=== PATIENT | male | born 1940 | race Caucasian/White ===

== ENCOUNTER 2018-10-03 14:57 | Inpatient (IN) | payer MEDICARE, BC ==
[2018-10-03 15:28] LABS: CHLORIDE,CL 106 mEq/L (98-106); SODIUM,NA 142 mEq/L (136-145)
[2018-10-03] MEDS ORDERED: Ondansetron 4 MG/2 ML SDV IVPUSH PRN (19:09)
[2018-10-03] MEDS: Mirtazapine 15 MG Tab PO SCH (19:28)
[2018-10-03] MEDS ORDERED: Metoprolol Succinate 25 MG Tab.ER PO ONE (20:00)
[2018-10-03] MEDS ORDERED: Non-Formulary Medication 1 Each (Ipratropium Bromide [Ipratropium Bromide] 2 SPRAYS) NASBOTH SCH (20:00)
[2018-10-03] MEDS ORDERED: Enoxaparin 80 MG/0.8 ML Syringe SUBCUT SCH (20:00)
[2018-10-03] MEDS: Acetaminophen 500 MG Tab PO PRN (23:20)
[2018-10-04] MEDS: Acetaminophen 500 MG Tab PO PRN (07:01)
[2018-10-04] MEDS: Loratadine 10 MG Tab PO SCH (07:14)
[2018-10-04] MEDS: Aspirin 325 MG Tab.EC PO SCH (07:14)
[2018-10-04] MEDS: Furosemide 40 MG Tab PO SCH (07:14)
[2018-10-04] MEDS: Metoprolol Succinate 25 MG Tab.ER PO SCH (07:14)
--- NOTE | 2018-10-04 10:38 | PCM.PN ---
- General Info Date of Service: 10/04/18 Admission Dx/Problem (Free Text): Dizziness Weakness Frequent Falls Functional Status: Reports: Pain Controlled, Tolerating Diet, Ambulating - Review of Systems General: Reports: Weakness, Fatigue HEENT: Denies: Ear Pain, Sore Throat, Rhinitis Pulmonary: Reports: Shortness of Breath. Denies: Cough Cardiovascular: Reports: Edema. Denies: Chest Pain, Lightheadedness Gastrointestinal: Denies: Abdominal Pain, Nausea, Vomiting Genitourinary: Reports: No Symptoms Musculoskeletal: Reports: Shoulder Pain Skin: Reports: No Symptoms Neurological: Reports: Dizziness, Weakness - Patient Data Vitals - Most Recent: Last Vital Signs Temp 97 F 10/04/18 08:00 Pulse 83 10/04/18 08:00 Resp 18 10/04/18 08:00 BP 111/79 10/04/18 08:00 Pulse Ox 97 10/04/18 08:00 Weight - Most Recent: 159 lb 14.4 oz Lab Results Last 24 Hours: Laboratory Results - last 24 hr 10/03/18 10/03/18 10/03/18 Range/Units 15:06 15:06 15:58 WBC 6.4 (5.0-10.0) 10^3/uL RBC 4.00 L (4.50-6.00) 10^6/uL Hgb 13.1 L (14.0-18.0) g/dL Hct 38.9 L (40.0-54.0) % MCV 97.3 H (82.0-94.0) fL MCH 32.8 H (27.0-32.0) pg MCHC 33.7 (33.0-38.0) g/dL RDW Coeff of Brayan 14.0 (11.0-15.0) % Plt Count 223 (150-400) 10^3/uL Neut % (Auto) 77.3 (35-85) % Lymph % (Auto) 11.6 (10-55) % [place] % (Auto) 8.9 (0-16) % Eos % (Auto) 2.0 (0-5) % Baso % (Auto) 0.2 (0-3) % Neut # (Auto) 4.94 (1.80-7.00) 10^3/uL Lymph # (Auto) 0.74 L (1.00-4.80) 10^3/uL [place] # (Auto) 0.57 (0.00-0.80) 10^3/uL Eos # (Auto) 0.13 (0.00-0.45) 10^3/uL Baso # (Auto) 0.01 10^3/uL Sodium 142 (136-145) mEq/L Potassium 4.1 (3.5-5.0) mEq/L Chloride 106 (98-106) mEq/L Carbon Dioxide 29 (21-32) mmol/L BUN 25 H (7-18) mg/dL Creatinine 1.2 (0.7-1.3) mg/dL Est Cr Clr Drug Dosing TNP Estimated GFR (MDRD) 58 L (>=60) mL/min Glucose 127 H (75-99) mg/dL Calcium 9.9 (8.4-10.1) mg/dL Troponin I 0.047 (0.00-0.06) ng/mL Urine Color Yellow (YELLOW) Urine Appearance Clear (CLEAR) Urine pH 5.5 (4.5-8.0) Ur Specific [place] 1.025 H (1.003-1.020) Urine Protein 30 H (NEGATIVE) mg/dL Urine Glucose (UA) Negative (NEGATIVE) mg/dL Urine Ketones Trace H (NEGATIVE) mg/dL Urine Occult Blood Negative (NEGATIVE) Urine Nitrite Negative (NEGATIVE) Urine Bilirubin Negative (NEGATIVE) Urine Urobilinogen 0.2 (0.2-1.0) EU/dL Ur Leukocyte Esterase Negative (NEGATIVE) Urine RBC Not seen (0-5) /HPF Urine WBC Not seen (0-5) /HPF Ur Squamous Epith Cells Occasional H (NOT SEEN) /HPF Hyaline Casts Occasional H (NOT SEEN) /LPF Urine Mucus Occasional H (NOT SEEN) /HPF // Range/Units 05:11 WBC (5.0-10.0) 10^3/uL RBC (4.50-6.00) 10^6/uL Hgb (14.0-18.0) g/dL Hct (40.0-54.0) % MCV (82.0-94.0) fL MCH (27.0-32.0) pg MCHC (33.0-38.0) g/dL RDW Coeff of Brayan (11.0-15.0) % Plt Count (150-400) 10^3/uL Neut % (Auto) (35-85) % Lymph % (Auto) (10-55) % [place] % (Auto) (0-16) % Eos % (Auto) (0-5) % Baso % (Auto) (0-3) % Neut # (Auto) (1.80-7.00) 10^3/uL Lymph # (Auto) (1.00-4.80) 10^3/uL [place] # (Auto) (0.00-0.80) 10^3/uL Eos # (Auto) (0.00-0.45) 10^3/uL Baso # (Auto) 10^3/uL Sodium (136-145) mEq/L Potassium (3.5-5.0) mEq/L Chloride (98-106) mEq/L Carbon Dioxide (21-32) mmol/L BUN (7-18) mg/dL Creatinine (0.7-1.3) mg/dL Est Cr Clr Drug Dosing Estimated GFR (MDRD) (>=60) mL/min Glucose (75-99) mg/dL Calcium (8.4-10.1) mg/dL Troponin I 0.051 (0.00-0.06) ng/mL Urine Color (YELLOW) Urine Appearance (CLEAR) Urine pH (4.5-8.0) Ur Specific [place] (1.003-1.020) Urine Protein (NEGATIVE) mg/dL Urine Glucose (UA) (NEGATIVE) mg/dL Urine Ketones (NEGATIVE) mg/dL Urine Occult Blood (NEGATIVE) Urine Nitrite (NEGATIVE) Urine Bilirubin (NEGATIVE) Urine Urobilinogen (0.2-1.0) EU/dL Ur Leukocyte Esterase (NEGATIVE) Urine RBC (0-5) /HPF Urine WBC (0-5) /HPF Ur Squamous Epith Cells (NOT SEEN) /HPF Hyaline Casts (NOT SEEN) /LPF Urine Mucus (NOT SEEN) /HPF Med Orders - Current: Current Medications Acetaminophen (Tylenol Extra Strength) 500 - 1,000 mg PO Q6H PRN PRN Reason: Pain/Fever Last Admin: 10/04/18 07:01 Dose: 1,000 mg Aspirin (Ecotrin) 325 mg PO DAILY [facility] Last Admin: 10/04/18 07:14 Dose: 325 mg Enoxaparin Sodium (Lovenox) 70 mg SUBCUT DAILY@1999 [facility] Last Admin: 10/03/18 19:28 Dose: 70 mg Furosemide (Lasix) 40 mg PO DAILY [facility] Last Admin: 10/04/18 07:14 Dose: 40 mg Loratadine (Claritin) 10 mg PO DAILY [facility] Last Admin: 10/04/18 07:14 Dose: 10 mg Metoprolol Succinate (Toprol Xl) 25 mg PO DAILY [facility] Last Admin: 10/04/18 07:14 Dose: 25 mg Mirtazapine (Remeron) 15 mg PO BEDTIME [facility] Last Admin: 10/03/18 19:28 Dose: 15 mg Non-Formulary Medication (Rosuvastatin [Crestor]) 10 mg PO Q48H [facility] Ondansetron HCl (Zofran) 4 mg IVPUSH Q6H PRN PRN Reason: Nausea Discontinued Medications Metoprolol Succinate (Toprol Xl) 25 mg PO ONETIME ONE Stop: 10/03/18 20:01 Last Admin: 10/03/18 19:27 Dose: 25 mg Non-Formulary Medication (Ipratropium [place] [Ipratropium [place]]) 2 sprays NASBOTH BID [facility] - Exam General: Alert, Oriented HEENT: Mucous Membr. Moist/[place] Neck: Supple Lungs: Clear to Auscultation, Normal Respiratory Effort Cardiovascular: Irregular Rhythm, Murmurs GI/Abdominal Exam: Normal Bowel Sounds, Soft, Non-Tender Extremities: Normal Inspection, Pedal Edema (2+) Skin: Warm, Dry Neurological: No New Focal Deficit - Problem List & Annotations (1) Weakness SNOMED Code(s): 13008181 Code(s): R53.1 - WEAKNESS Status: Acute Priority: High Current Visit: Yes (2) Fall at home SNOMED Code(s): 33479177 Code(s): W19.XXXA - UNSPECIFIED FALL, INITIAL ENCOUNTER; Y92.009 - UNSP PLACE IN UNSP NON-INSTITUT (PRIVATE) RESIDENCE PLACE Status: Acute Priority: High Current Visit: Yes Qualifiers: Encounter type: initial encounter Qualified Code(s): W19.XXXA - Unspecified fall, initial encounter; Y92.009 - Unspecified place in unspecified non-institutional (private) residence as the place of occurrence of the external cause (3) Atrial flutter SNOMED Code(s): 8789566 Code(s): I48.92 - UNSPECIFIED ATRIAL FLUTTER Status: Acute Priority: High Current Visit: Yes - Problem List Review Problem List Initiated/Reviewed/Updated: Yes - My Orders Last 24 Hours: My Active Orders 10/04/18 10:22 Echo Comp wo Cont [US] Routine PRO B-TYPE NATRIUR PEPT,BNPPRO [CHEM] Routine TSH REFLEX TO FREE T4 [CHEM] Routine - Assessment Assessment:: Weakness Frequent Falls Laceration to head Atrial Flutter - Plan Plan:: Patient stable this am. Admits to ongoing shoulder pain. Has increased edema in legs, states has been refusing to take his meds at home due to "def[place] ". Did take his Lasix for the nurse this am. Does feel mildly short of breath. States balance is off which has led to frequent falls at home. Did have one staple put in a laceration on his right scalp yesterday as a result of a fall. No headache today. New onset atrial flutter was noted. Was started on Lovenox [address] scan of head was done, was negative. Will switch to Eliquis BID. Stop Lovenox. Obtain TSH and ProBNP today due to edema. Carotid ultrasound done today. Echo last done 3 months ago. Obtain MRI on Tuesday. PT today for balance and strengthening.
[2018-10-04] MEDS ORDERED: Acetaminophen/HYDROcodone 325-5 MG Tab PO PRN (10:41)
[2018-10-04] MEDS: Apixaban 5 MG Tab PO SCH ×2 (12:53→19:52)
[2018-10-04] MEDS: Mirtazapine 15 MG Tab PO SCH (19:52)
[2018-10-04] MEDS ORDERED: ROSUVASTATIN 10 MG PO SCH (20:00)
[2018-10-05] MEDS: Acetaminophen 500 MG Tab PO PRN ×3 (03:34→19:59)
[2018-10-05 07:55] LABS: CHLORIDE,CL 106 mEq/L (98-106); SODIUM,NA 140 mEq/L (136-145)
[2018-10-05] MEDS: Metoprolol Succinate 25 MG Tab.ER PO SCH (08:02)
[2018-10-05] MEDS: Furosemide 40 MG Tab PO SCH (08:02)
[2018-10-05] MEDS: Apixaban 5 MG Tab PO SCH ×2 (08:03→19:42)
[2018-10-05] MEDS: Aspirin 325 MG Tab.EC PO SCH (08:03)
[2018-10-05] MEDS: Loratadine 10 MG Tab PO SCH (08:03)
--- NOTE | 2018-10-05 09:15 | PCM.PN ---
- General Info Date of Service: 10/05/18 Admission Dx/Problem (Free Text): Dizziness Weakness Frequent Falls Functional Status: Reports: Pain Controlled, Tolerating Diet, Ambulating - Review of Systems General: Reports: Weakness, Fatigue. Denies: Fever HEENT: Denies: Ear Pain, Sinus Congestion, Rhinitis Pulmonary: Reports: Cough. Denies: Shortness of Breath Cardiovascular: Reports: Edema. Denies: Chest Pain Gastrointestinal: Denies: Abdominal Pain, Nausea, Vomiting Genitourinary: Reports: No Symptoms Musculoskeletal: Reports: Shoulder Pain Skin: Reports: No Symptoms Neurological: Reports: Weakness - Patient Data Vitals - Most Recent: Last Vital Signs Temp 99.1 F 10/05/18 07:49 Pulse 86 10/05/18 08:02 Resp 20 10/05/18 07:49 BP 116/82 10/05/18 08:02 Pulse Ox 95 10/05/18 07:49 Weight - Most Recent: 160 lb 14.4 oz Lab Results Last 24 Hours: Laboratory Results - last 24 hr 10/04/18 10/05/18 10/05/18 Range/Units 10:22 06:45 06:45 WBC 7.0 (5.0-10.0) 10^3/uL RBC 3.85 L (4.50-6.00) 10^6/uL Hgb 12.6 L (14.0-18.0) g/dL Hct 37.6 L (40.0-54.0) % MCV 97.7 H (82.0-94.0) fL MCH 32.7 H (27.0-32.0) pg MCHC 33.5 (33.0-38.0) g/dL RDW Coeff of Brayan 14.0 (11.0-15.0) % Plt Count 195 (150-400) 10^3/uL Neut % (Auto) 71.2 (35-85) % Lymph % (Auto) 14.7 (10-55) % [place] % (Auto) 12.3 (0-16) % Eos % (Auto) 1.7 (0-5) % Baso % (Auto) 0.1 (0-3) % Neut # (Auto) 4.97 (1.80-7.00) 10^3/uL Lymph # (Auto) 1.03 (1.00-4.80) 10^3/uL [place] # (Auto) 0.86 H (0.00-0.80) 10^3/uL Eos # (Auto) 0.12 (0.00-0.45) 10^3/uL Baso # (Auto) 0.01 10^3/uL Sodium 140 (136-145) mEq/L Potassium 3.9 (3.5-5.0) mEq/L Chloride 106 (98-106) mEq/L Carbon Dioxide 29 (21-32) mmol/L BUN 24 H (7-18) mg/dL Creatinine 1.1 (0.7-1.3) mg/dL Est Cr Clr Drug Dosing 56.21 mL/min Estimated GFR (MDRD) > 60 (>=60) mL/min Glucose 124 H (75-99) mg/dL Calcium 9.2 (8.4-10.1) mg/dL C-Reactive Protein < 0.2 L (0.2-0.8) mg/dL NT-Pro-B Natriuret Pep 4264 H (0-1000) pg/mL TSH, Ultra Sensitive 1.27 (0.36-5.60) uIU/mL Med Orders - Current: Current Medications Acetaminophen (Tylenol Extra Strength) 500 - 1,000 mg PO Q6H PRN PRN Reason: Pain/Fever Last Admin: 10/05/18 03:34 Dose: 1,000 mg Hydrocodone Bitart/Acetaminophen ([place] 325-5 Mg) 1 tab PO Q6H PRN PRN Reason: Pain Apixaban (Eliquis) 5 mg PO BID [facility] Last Admin: 10/05/18 08:03 Dose: 5 mg Aspirin (Ecotrin) 325 mg PO DAILY [facility] Last Admin: 10/05/18 08:03 Dose: 325 mg Furosemide (Lasix) 40 mg PO DAILY [facility] Last Admin: 10/05/18 08:02 Dose: 40 mg Loratadine (Claritin) 10 mg PO DAILY [facility] Last Admin: 10/05/18 08:03 Dose: 10 mg Metoprolol Succinate (Toprol Xl) 25 mg PO DAILY [facility] Last Admin: 10/05/18 08:02 Dose: 25 mg Mirtazapine (Remeron) 15 mg PO BEDTIME [facility] Last Admin: 10/04/18 19:52 Dose: 15 mg Ptom Rosuvastatin [ Crestor] 10 Mg Tab 10 mg PO Q48H [facility] Last Admin: 10/04/18 19:56 Dose: 10 mg Ondansetron HCl (Zofran) 4 mg IVPUSH Q6H PRN PRN Reason: Nausea Last Admin: 10/04/18 18:57 Dose: 4 mg Discontinued Medications Enoxaparin Sodium (Lovenox) 70 mg SUBCUT DAILY@1999 [facility] Last Admin: 10/03/18 19:28 Dose: 70 mg Metoprolol Succinate (Toprol Xl) 25 mg PO ONETIME ONE Stop: 10/03/18 20:01 Last Admin: 10/03/18 19:27 Dose: 25 mg Non-Formulary Medication (Ipratropium [place] [Ipratropium [place]]) 2 sprays NASBOTH BID [facility] - Exam General: Alert, Oriented HEENT: Mucous Membr. Moist/[place] Neck: Supple Lungs: Clear to Auscultation, Normal Respiratory Effort Cardiovascular: Regular Rate, Regular Rhythm GI/Abdominal Exam: Normal Bowel Sounds, Soft, Non-Tender Extremities: Normal Inspection, Pedal Edema (1-2+ but improved from yesterday) Skin: Warm, Dry Neurological: No New Focal Deficit - Problem List & Annotations (1) Weakness SNOMED Code(s): 97269832 Code(s): R53.1 - WEAKNESS Status: Acute Priority: High Current Visit: Yes (2) Fall at home SNOMED Code(s): 38883363 Code(s): W19.XXXA - UNSPECIFIED FALL, INITIAL ENCOUNTER; Y92.009 - UNSP PLACE IN UNSP NON-INSTITUT (PRIVATE) RESIDENCE PLACE Status: Acute Priority: High Current Visit: Yes Qualifiers: Encounter type: initial encounter Qualified Code(s): W19.XXXA - Unspecified fall, initial encounter; Y92.009 - Unspecified place in unspecified non-institutional (private) residence as the place of occurrence of the external cause (3) Atrial flutter SNOMED Code(s): 8185306 Code(s): I48.92 - UNSPECIFIED ATRIAL FLUTTER Status: Acute Priority: High Current Visit: Yes - Problem List Review Problem List Initiated/Reviewed/Updated: Yes - My Orders Last 24 Hours: My Active Orders 10/04/18 10:41 Acetaminophen/HYDROcodone [Lewis 325-5 MG] 1 tab PO Q6H PRN 10/04/18 10:45 Apixaban [Eliquis] 5 mg PO BID - Assessment Assessment:: Weakness Frequent Falls Laceration to head Atrial Flutter - Plan Plan:: Patient stable this am. Admits to ongoing shoulder pain. Has increased edema in legs, states has been refusing to take his meds at home due to "[place] ". Did take his Lasix for the nurse this am. Does feel mildly short of breath. States balance is off which has led to frequent falls at home. Did have one staple put in a laceration on his right scalp yesterday as a result of a fall. No headache today. New onset atrial flutter was noted. Was started on Lovenox [address] scan of head was done, was negative. Will switch to Eliquis BID. Stop Lovenox. Obtain TSH and ProBNP today due to edema. Carotid ultrasound done today. Echo last done 3 months ago. Obtain MRI on Tuesday. PT today for balance and strengthening. 10-05-2018 Patient up at bedside, feeling better but admits that still weak with ambulating. PT is working with patient and suggests using walker at all times, patient states this "will not work for me" as has too many projects to do. He is, however, aware of our concerns with his balance and frequent falls. Did also discuss compliance with meds. Edema has improved since resuming his Lasix. Telemetry shows conversion to NSR. Was started on Eliquis yesterday. Lung sounds clear today. Head wound is healing well. Will continue with PT. Continue Lasix as ProBNP noted at 4264 yesterday. TSH normal. Obtain MRI of brain tomorrow.
[2018-10-05] MEDS: Mirtazapine 15 MG Tab PO SCH (19:42)
[2018-10-05] MEDS ORDERED: Gadoteridol 279.3 MG/ML 15 ML SDV IVPUSH ONE (20:38)
[2018-10-06] MEDS: Furosemide 40 MG Tab PO SCH (07:37)
[2018-10-06] MEDS: Loratadine 10 MG Tab PO SCH (07:37)
[2018-10-06] MEDS: Acetaminophen 500 MG Tab PO PRN (07:38)
[2018-10-06] MEDS: Aspirin 325 MG Tab.EC PO SCH (07:38)
[2018-10-06] MEDS: Apixaban 5 MG Tab PO SCH (07:38)
[2018-10-06] MEDS: Metoprolol Succinate 25 MG Tab.ER PO SCH (07:53)
[2018-10-06 07:54] VITALS: BP 118/83
--- NOTE | 2018-10-06 22:24 | PCM.DCSUM1 ---
Discharge Summary - Hospital Course Free Text/Narrative:: Patient presented to clinic to see Maite Moreno for increased weakness, dizziness and fall. Had fallen and hit his head on the dining room table, sustained small laceration to posterior right scalp region. Denies loss of consciousness. States was bending over and started feeling dizzy and fell backwards. Per , has fallen 8 times in the last 1-2 weeks, did not injure self until this day. Blood pressure was low, pulse irregular in clinic. Denied chest pain, shortness of breath, N/V/D, urinary symptoms. EKG showed SR with frequent PVCs, PACs. CT scan of head was negative. BUN 25. Admitted for weakness and falls. Echocardiogram, carotid ultrasound and MRI of brain ordered. PT for strengthing. Diagnosis: Stroke: No Modified [place] Scale: No Symptoms at All Modified Lucas Scale Score: 0 - Discharge Data Discharge Date: 10/06/18 Discharge Disposition: DC/Tfer W/I Hosp To Swing 61 Condition: Good - Discharge Diagnosis/Problem(s) (1) Weakness SNOMED Code(s): 72673614 ICD Code: R53.1 - WEAKNESS Status: Acute Priority: High (2) Fall at home SNOMED Code(s): 66143931 ICD Code: W19.XXXA - UNSPECIFIED FALL, INITIAL ENCOUNTER; Y92.009 - UNSP PLACE IN UNSP NON-INSTITUT (PRIVATE) RESIDENCE PLACE Status: Acute Priority: High Qualifiers: Encounter type: initial encounter Qualified Code(s): W19.XXXA - Unspecified fall, initial encounter; Y92.009 - Unspecified place in unspecified non-institutional (private) residence as the place of occurrence of the external cause (3) Atrial flutter SNOMED Code(s): 6355172 ICD Code: I48.92 - UNSPECIFIED ATRIAL FLUTTER Status: Acute Priority: High - Patient Summary/Data Complications: none Consults: Consultations 10/03/18 17:14 Consult to Case Management/Under Sheriff [CONS] Routine PT Evaluation and Treatment [CONS] Routine Hospital Course: Patient doing well. Does continue to have ongoing weakness, balance concerns. Has been ambulating with PT and walker. Patient was found to be in atrial flutter. Started on Eliquis as did not convert. Carotid ultrasound stable without acute concern. Does have chronic right shoulder pain which does inhibit his movement and use of the walker at times. Due to persistent weakness, will transfer to swing bed for ongoing physical therapy/balance training. - Patient Instructions Diet: Usual Diet as Tolerated Activity: As Tolerated - Discharge Plan *PRESCRIPTION DRUG MONITORING PROGRAM REVIEWED*: No *COPY OF PRESCRIPTION DRUG MONITORING REPORT IN PATIENT FLORA: No Home Medications: Home Meds Aspirin [Halfprin] 325 mg PO DAILY 05/31/13 [History] Hydrocodone/Acetaminophen [Hydrocodon-Acetaminophen 5-500] 1 each PO Q6H PRN [History] Ipratropium [place] 2 sprays NASBOTH BID 05/31/13 [History] Loratadine [Claritin] 10 mg PO DAILY 05/31/13 [History] Metoprolol Succinate 25 mg PO DAILY 05/31/13 [History] Multivitamin [Multi Vitamin Daily] 1 each PO DAILY 05/31/13 [History] Rosuvastatin [Crestor] 10 mg PO Q48H 05/31/13 [History] Coconut Oil 1,000 mg PO DAILY 10/20/17 [History] Fluticasone Propionate [Flonase Allergy Relief] 2 sprays NASBOTH BEDTIME [History] Mirtazapine 15 mg PO BEDTIME 10/20/17 [History] traMADol HCl [Tramadol HCl] 50 - 100 mg PO Q8HR PRN 10/20/17 [History] Acetaminophen [Tylenol Extra Strength] 500 - 1,000 mg PO Q6H PRN 10/03/18 [ History] - Discharge Summary/Plan Comment DC Time >30 min.: No - General Info Date of Service: 10/06/18 Admission Dx/Problem (Free Text: Dizziness Weakness Frequent Falls Functional Status: Reports: Pain Controlled, Tolerating Diet, Ambulating - Review of Systems General: Reports: Weakness, Fatigue. Denies: Fever, Malaise HEENT: Reports: No Symptoms Pulmonary: Denies: Shortness of Breath, Cough Cardiovascular: Reports: Edema. Denies: Chest Pain, Lightheadedness Gastrointestinal: Denies: Abdominal Pain, Nausea, Vomiting Musculoskeletal: Reports: Shoulder Pain Skin: Reports: No Symptoms Neurological: Reports: Weakness - Patient Data Vitals - Most Recent: Last Vital Signs Temp 98.4 F 10/06/18 08:00 Pulse 82 10/06/18 08:00 Resp 20 06/07/19 08:00 BP 118/83 10/06/18 08:00 Pulse Ox 96 10/06/18 08:00 Weight - Most Recent: 161 lb 14.4 oz Med Orders - Current: Current Medications Discontinued Medications Acetaminophen (Tylenol Extra Strength) 500 - 1,000 mg PO Q6H PRN PRN Reason: Pain/Fever Last Admin: 10/06/18 07:38 Dose: 1,000 mg Hydrocodone Bitart/Acetaminophen ([place] 325-5 Mg) 1 tab PO Q6H PRN PRN Reason: Pain Apixaban (Eliquis) 5 mg PO BID [facility] Last Admin: 10/06/18 07:38 Dose: 5 mg Aspirin (Ecotrin) 325 mg PO DAILY [facility] Last Admin: 10/06/18 07:38 Dose: 325 mg Enoxaparin Sodium (Lovenox) 70 mg SUBCUT DAILY@1999 [facility] Last Admin: 10/03/18 19:28 Dose: 70 mg Furosemide (Lasix) 40 mg PO DAILY [facility] Last Admin: 10/06/18 07:37 Dose: 40 mg Gadoteridol (Prohance) 15 ml IVPUSH ONETIME ONE Stop: 10/05/18 20:39 Last Admin: 10/05/18 20:53 Dose: 15 ml Loratadine (Claritin) 10 mg PO DAILY [facility] Last Admin: 10/06/18 07:37 Dose: 10 mg Metoprolol Succinate (Toprol Xl) 25 mg PO DAILY [facility] Last Admin: 10/06/18 07:53 Dose: 25 mg Metoprolol Succinate (Toprol Xl) 25 mg PO ONETIME ONE Stop: 10/03/18 20:01 Last Admin: 10/03/18 19:27 Dose: 25 mg Mirtazapine (Remeron) 15 mg PO BEDTIME [facility] Last Admin: 10/05/18 19:42 Dose: 15 mg Non-Formulary Medication (Ipratropium [place] [Ipratropium [place]]) 2 sprays NASBOTH BID [facility] Ptom Rosuvastatin [ Crestor] 10 Mg Tab 10 mg PO Q48H [facility] Last Admin: 10/04/18 19:56 Dose: 10 mg Ondansetron HCl (Zofran) 4 mg IVPUSH Q6H PRN PRN Reason: Nausea Last Admin: 10/04/18 18:57 Dose: 4 mg - Exam General: Reports: Alert, Oriented HEENT: Reports: Mucous Membr. Moist/[place] Neck: Reports: Supple Lungs: Reports: Clear to Auscultation, Normal Respiratory Effort Cardiovascular: Reports: Regular Rate, Regular Rhythm GI/Abdominal Exam: Normal Bowel Sounds, Soft, Non-Tender Extremities: Normal Inspection, Pedal Edema (1+) Skin: Reports: Warm, Dry Neurological: Reports: No New Focal Deficit
== END 2018-10-06 09:10 | disposition swing bed (61) | DRG 605 ==
LOC: CC.MS 14:57 → CC.FCMC 14:57 → CC.MS 16:21 → UNDOADMIN 16:21 → CC.MS 17:14
PROVIDERS: ADMIT Nurse Practitioner Family; ATTEND Family Medicine
DX: S01.01XA Laceration without foreign body of scalp, initial encounter (principal); I48.92 Unspecified atrial flutter; R42 Dizziness and giddiness; W18.30XA Fall on same level, unspecified, initial encounter; I49.1 Atrial premature depolarization; G89.29 Other chronic pain; M25.511 Pain in right shoulder; R29.6 Repeated falls; R53.1 Weakness; I50.9 Heart failure, unspecified; I25.10 Atherosclerotic heart disease of native coronary artery without angina pectoris; E78.5 Hyperlipidemia, unspecified; I49.3 Ventricular premature depolarization; Z79.82 Long term (current) use of aspirin; Z79.899 Other long term (current) drug therapy; Z90.49 Acquired absence of other specified parts of digestive tract; E53.8 Deficiency of other specified B group vitamins; M54.9 Dorsalgia, unspecified; N40.0 Benign prostatic hyperplasia without lower urinary tract symptoms; Z88.8 Allergy status to other drugs, medicaments and biological substances; Z95.1 Presence of aortocoronary bypass graft; I95.9 Hypotension, unspecified
CPT/HCPCS: 36415; 70450; 70553; 71046; 80048; 81001; 83880; 84443; 84484; 85025; 86140; 93005; 93880; 97110-GP; 97161-GP; A9270-GY; A9579; J1650; J2405

== ENCOUNTER 2018-10-06 08:07 | Inpatient (IN) | payer MEDICARE, BC ==
[2018-10-06] MEDS ORDERED: Ondansetron 4 MG/2 ML SDV IVPUSH PRN (11:19)
[2018-10-06] MEDS ORDERED: Acetaminophen/HYDROcodone 325-5 MG Tab PO PRN (11:19)
[2018-10-06] MEDS: Acetaminophen 500 MG Tab PO PRN (19:40)
[2018-10-06] MEDS: Mirtazapine 15 MG Tab PO SCH (19:41)
[2018-10-06] MEDS: Apixaban 5 MG Tab PO SCH (19:41)
[2018-10-06] MEDS: ROSUVASTATIN 10 MG PO SCH (19:43)
[2018-10-07] MEDS: Apixaban 5 MG Tab PO SCH ×2 (07:32→19:20)
[2018-10-07] MEDS: Aspirin 325 MG Tab.EC PO SCH (07:32)
[2018-10-07] MEDS: Loratadine 10 MG Tab PO SCH (07:32)
[2018-10-07] MEDS: Acetaminophen 500 MG Tab PO PRN ×2 (07:33→19:21)
[2018-10-07] MEDS: Furosemide 40 MG Tab PO SCH (07:33)
[2018-10-07] MEDS: Metoprolol Succinate 25 MG Tab.ER PO SCH (07:36)
[2018-10-07] MEDS: Mirtazapine 15 MG Tab PO SCH (19:21)
[2018-10-08] MEDS: Aspirin 325 MG Tab.EC PO SCH (07:23)
[2018-10-08] MEDS: Apixaban 5 MG Tab PO SCH ×2 (07:23→19:55)
[2018-10-08] MEDS: Loratadine 10 MG Tab PO SCH (07:23)
[2018-10-08] MEDS: Acetaminophen 500 MG Tab PO PRN ×2 (07:23→19:55)
[2018-10-08] MEDS: Metoprolol Succinate 25 MG Tab.ER PO SCH (07:23)
[2018-10-08] MEDS: Furosemide 40 MG Tab PO SCH (07:23)
[2018-10-08] MEDS: Mirtazapine 15 MG Tab PO SCH (19:55)
[2018-10-08] MEDS: ROSUVASTATIN 10 MG PO SCH (19:56)
[2018-10-09] MEDS: Apixaban 5 MG Tab PO SCH ×2 (07:19→19:54)
[2018-10-09] MEDS: Furosemide 40 MG Tab PO SCH (07:19)
[2018-10-09] MEDS: Aspirin 325 MG Tab.EC PO SCH (07:19)
[2018-10-09] MEDS: Metoprolol Succinate 25 MG Tab.ER PO SCH (07:19)
[2018-10-09] MEDS: Loratadine 10 MG Tab PO SCH (07:19)
[2018-10-09] MEDS ORDERED: Metoprolol Succinate 25 MG Tab.ER PO ONE (10:30)
[2018-10-09] MEDS: Acetaminophen 500 MG Tab PO PRN (13:11)
[2018-10-09] MEDS: Mirtazapine 15 MG Tab PO SCH (19:54)
[2018-10-10] MEDS: Acetaminophen 500 MG Tab PO PRN ×2 (03:12→22:07)
[2018-10-10] MEDS: Metoprolol Succinate 25 MG Tab.ER PO SCH (07:10)
[2018-10-10] MEDS: Apixaban 5 MG Tab PO SCH ×2 (07:10→19:25)
[2018-10-10] MEDS: Aspirin 325 MG Tab.EC PO SCH (07:10)
[2018-10-10] MEDS: Loratadine 10 MG Tab PO SCH (07:10)
[2018-10-10] MEDS: Furosemide 40 MG Tab PO SCH (07:10)
[2018-10-10] MEDS ORDERED: Polyvinyl Alcohol 1.4% Ophth Soln 15 ML Bottle EYEBOTH PRN (10:05)
[2018-10-10] MEDS: Mirtazapine 15 MG Tab PO SCH (19:25)
[2018-10-10] MEDS: ROSUVASTATIN 10 MG PO SCH (19:25)
[2018-10-11] MEDS: Aspirin 325 MG Tab.EC PO SCH (07:26)
[2018-10-11] MEDS: Apixaban 5 MG Tab PO SCH ×2 (07:27→19:26)
[2018-10-11] MEDS: Furosemide 40 MG Tab PO SCH (07:27)
[2018-10-11] MEDS: Metoprolol Succinate 25 MG Tab.ER PO SCH (07:27)
[2018-10-11] MEDS: Loratadine 10 MG Tab PO SCH (07:27)
[2018-10-11] MEDS: Mirtazapine 15 MG Tab PO SCH (19:26)
[2018-10-12] MEDS: Aspirin 325 MG Tab.EC PO SCH (07:56)
[2018-10-12] MEDS: Furosemide 40 MG Tab PO SCH (07:56)
[2018-10-12] MEDS: Metoprolol Succinate 25 MG Tab.ER PO SCH (07:56)
[2018-10-12 07:57] VITALS: BP 117/85
[2018-10-12] MEDS: Apixaban 5 MG Tab PO SCH (07:57)
[2018-10-12] MEDS: Loratadine 10 MG Tab PO SCH (07:57)
[2018-10-12] MEDS: Acetaminophen 500 MG Tab PO PRN (08:13)
--- NOTE | 2018-10-12 18:17 | PCM.DCSUM1 ---
Discharge Summary - Hospital Course Diagnosis: Stroke: No Modified [place] Scale: No Symptoms at All Modified [place] Scale Score: 0 - Discharge Data Discharge Date: 10/12/18 Discharge Disposition: Home, W Home Health Agency 06 Condition: Good - Patient Summary/Data Consults: Consultations 10/06/18 11:19 Consult to Case Management/Protozoology Teacher [CONS] Routine PT Evaluation and Treatment [CONS] Routine - Patient Instructions Diet: Usual Diet as Tolerated Activity: As Tolerated - Discharge Plan *PRESCRIPTION DRUG MONITORING PROGRAM REVIEWED*: No *COPY OF PRESCRIPTION DRUG MONITORING REPORT IN PATIENT FLORA: No Prescriptions/Med Rec: Apixaban [Eliquis] 5 mg PO BID #60 tablet Metoprolol Succinate [Toprol XL 50mg] 50 mg PO DAILY #30 tab.er Home Medications: Home Meds Aspirin [Halfprin] 325 mg PO DAILY 05/31/13 [History] Hydrocodone/Acetaminophen [Hydrocodon-Acetaminophen 5-500] 1 each PO Q6H PRN [History] Ipratropium [place] 2 sprays NASBOTH BID 05/31/13 [History] Loratadine [Claritin] 10 mg PO DAILY 05/31/13 [History] Multivitamin [Multi-Vitamin Daily] 1 each PO DAILY 05/31/13 [History] Rosuvastatin [Crestor] 10 mg PO Q48H 05/31/13 [History] Coconut Oil 1,000 mg PO DAILY 10/20/17 [History] Fluticasone Propionate [Flonase Allergy Relief] 2 sprays NASBOTH BEDTIME [History] Mirtazapine 15 mg PO BEDTIME 10/20/17 [History] traMADol HCl [Tramadol HCl] 50 - 100 mg PO Q8HR PRN 10/20/17 [History] Acetaminophen [Tylenol Extra Strength] 500 - 1,000 mg PO Q6H PRN 10/03/18 [ History] Apixaban [Eliquis] 5 mg PO BID #60 tablet 10/12/18 [Rx] Metoprolol Succinate [Toprol XL 50mg] 50 mg PO DAILY #30 tab.er 10/12/18 [Rx] Patient Handouts: Atrial Flutter Referrals: Oumar Joseph MD [ED Physician] - (Follow up with Dr. Joseph in 10 days ) - Patient Data Vitals - Most Recent: Last Vital Signs Temp 96.5 F 10/12/18 08:00 Pulse 110 H 10/12/18 08:00 Resp 16 10/12/18 08:00 BP 117/85 10/12/18 08:00 Pulse Ox 100 10/12/18 08:00 Weight - Most Recent: 161 lb Med Orders - Current: Current Medications Discontinued Medications Acetaminophen (Tylenol Extra Strength) 500 - 1,000 mg PO Q6H PRN PRN Reason: Pain/Fever Last Admin: 10/12/18 08:13 Dose: 1,000 mg Hydrocodone Bitart/Acetaminophen ([place] 325-5 Mg) 1 tab PO Q6H PRN PRN Reason: Pain Last Admin: 10/11/18 13:47 Dose: 1 tab Apixaban (Eliquis) 5 mg PO BID [facility] Last Admin: 10/12/18 07:57 Dose: 5 mg Artificial Tears (Liquitears 1.4% Ophth Soln) 1 ml EYEBOTH QID PRN PRN Reason: Dry Eyes Last Admin: 10/10/18 10:22 Dose: 2 drop Aspirin (Ecotrin) 325 mg PO DAILY [facility] Last Admin: 10/12/18 07:56 Dose: 325 mg Furosemide (Lasix) 40 mg PO DAILY [facility] Last Admin: 10/12/18 07:56 Dose: 40 mg Loratadine (Claritin) 10 mg PO DAILY [facility] Last Admin: 10/12/18 07:57 Dose: 10 mg Metoprolol Succinate (Toprol Xl) 25 mg PO DAILY [facility] Last Admin: 10/09/18 07:19 Dose: 25 mg Metoprolol Succinate (Toprol Xl) 50 mg PO DAILY [facility] Last Admin: 10/12/18 07:56 Dose: 50 mg Metoprolol Succinate (Toprol Xl) 25 mg PO ONETIME ONE Stop: 10/09/18 10:31 Last Admin: 10/09/18 10:46 Dose: 25 mg Mirtazapine (Remeron) 15 mg PO BEDTIME [facility] Last Admin: 10/11/18 19:26 Dose: 15 mg Ptom Rosuvastatin [ Crestor] 10 Mg Tab 10 mg PO Q48H [facility] Last Admin: 10/10/18 19:25 Dose: 10 mg Ondansetron HCl (Zofran) 4 mg IVPUSH Q6H PRN PRN Reason: Nausea
== END 2018-10-12 11:40 | disposition home health service (06) | DRG 948 ==
LOC: CC.MS 08:07 → UNDOADMIN 09:18
PROVIDERS: ADMIT Family Medicine; ATTEND Family Medicine
DX: R53.1 Weakness (principal); I48.92 Unspecified atrial flutter; R42 Dizziness and giddiness; R29.6 Repeated falls; S01.01XA Laceration without foreign body of scalp, initial encounter; W19.XXXA Unspecified fall, initial encounter; G89.29 Other chronic pain; M25.519 Pain in unspecified shoulder; Z79.82 Long term (current) use of aspirin
CPT/HCPCS: 97110-GP; 97530-GP; A9270-GY

== ENCOUNTER 2019-03-05 11:17 | Inpatient (IN) | payer MEDICARE, BC ==
--- NOTE | 2019-03-05 11:50 | EDM.PDOC ---
ED HPI GENERAL MEDICAL PROBLEM - General Chief Complaint: Syncope Stated Complaint: DIZZY/FALLING DOWN Time Seen by Provider: 03/05/19 11:32 Source of Information: Reports: Patient, Family History Limitations: Reports: No Limitations - History of Present Illness INITIAL COMMENTS - FREE TEXT/NARRATIVE: This patient is a 78 year old male that presents to the ER. Patient reports that for 1 month he has had dizziness. Patient reports that he has had a history of it before in the past and was told it was his heart. Patient reports the past 1 month he has been falling at home, last fall one week ago without injury. Patient reports that yesterday his dizziness became much worse, he almost fell, but did not. Patient reports his dizziness has become worse and is constant. Patient reports that it worse with positional changes or with walking , but it is constant even when laying down. Patient also reports that he had central chest pain that started a couple days ago, but is not there now. He reports the chest pain is "a little", but not current. Reports last time he had chest pain was last night. He reports also for the past couple days he has been more short of breath than usual. Patient at bedside also reports his legs have been more swollen. She reports at times he does sleep in a chair, but did not last night. Patient denies unilateral weaknesses, headaches, neuro changes. Onset: Other (Dizziness since September. But much worse since last night. ) Onset Date: 03/04/19 (Much worse dizziness ) Duration: Getting Worse (especially since yesterday) Quality: Reports: Other ("chest hurt" last night, "little" not current.) Severity: Moderate Worsens with: Reports: Movement (dizziness) Associated Symptoms: Reports: Chest Pain, Shortness of Breath. Denies: Confusion, Cough, cough w sputum, Diaphoresis, Fever/Chills, Headaches, Loss of Appetite, Malaise, Nausea/Vomiting, Rash, Seizure, Syncope, Weakness - Related Data Allergies Allergy/AdvReac Type Severity Reaction Status Date / Time atorvastatin calcium Allergy Muscle Verified 03/05/19 12:08 [From Lipitor] Aches Home Meds: Home Meds Aspirin [Halfprin] 325 mg PO DAILY 05/31/13 [History] Hydrocodone/Acetaminophen [Hydrocodon-Acetaminophen 5-500] 1 each PO Q6H PRN [History] Ipratropium [place] 2 sprays NASBOTH BID 05/31/13 [History] Loratadine [Claritin] 10 mg PO DAILY 05/31/13 [History] Multivitamin [Multi-Vitamin Daily] 1 each PO DAILY 05/31/13 [History] Rosuvastatin [Crestor] 10 mg PO Q48H 05/31/13 [History] Coconut Oil 1,000 mg PO DAILY 10/20/17 [History] Fluticasone Propionate [Flonase Allergy Relief] 2 sprays NASBOTH BEDTIME [History] Mirtazapine 15 mg PO BEDTIME 10/20/17 [History] traMADol HCl [Tramadol HCl] 50 - 100 mg PO Q8HR PRN 10/20/17 [History] Acetaminophen [Tylenol Extra Strength] 500 - 1,000 mg PO Q6H PRN 10/03/18 [ History] Apixaban [Eliquis] 5 mg PO BID #60 tablet 10/12/18 [Rx] Past Medical History HEENT History: Reports: Impaired Vision Cardiovascular History: Reports: Heart Failure, High Cholesterol, Hypertension Musculoskeletal History: Reports: Arthritis - Past Surgical History Cardiovascular Surgical History: Reports: Coronary Artery Bypass GI Surgical History: Reports: Appendectomy, Cholecystectomy Musculoskeletal Surgical History: Reports: Arthroscopic Knee Social & Family History - Tobacco Use Smoking Status *Q: Never Smoker Second Hand Smoke Exposure: No - Caffeine Use Caffeine Use: Reports: Coffee ED ROS GENERAL - Review of Systems Review Of Systems: See Below Constitutional: Reports: No Symptoms HEENT: Reports: No Symptoms Respiratory: Reports: Shortness of Breath. Denies: Cough, Sputum Cardiovascular: Reports: Chest Pain, Dyspnea on Exertion, Edema, Lightheadedness. Denies: Palpitations, Syncope Endocrine: Reports: No Symptoms GI/Abdominal: Reports: No Symptoms. Denies: Abdominal Pain, Diarrhea, Nausea, Vomiting : Reports: No Symptoms Musculoskeletal: Reports: No Symptoms Skin: Reports: No Symptoms Neurological: Reports: Dizziness. Denies: Headache, Numbness, Seizure, Syncope , Tingling, Tremors, Weakness, Change in Speech Psychiatric: Reports: No Symptoms Hematologic/Lymphatic: Reports: No Symptoms Immunologic: Reports: No Symptoms ED EXAM, DIZZINESS - Physical Exam Exam: See Below Exam Limited By: No Limitations General Appearance: Alert, WD/WN, No Apparent Distress Eye Exam: Bilateral Eye: Normal Inspection, PERRL Ears: Normal External Exam, Normal Canal, Hearing Grossly Normal, Normal TMs Nose: Normal Inspection, Normal Mucosa, No Blood Throat/Mouth: Normal Inspection, Normal Lips, Normal Teeth, Normal Gums, Normal Oropharynx, Normal Voice, No Airway Compromise Head Exam: Atraumatic, Normocephalic Vertigo: No: reproducible Neck: Normal Inspection, Supple, Non-Tender, Full Range of Motion Respiratory/Chest: No Respiratory Distress, Lungs Clear, Normal Breath Sounds, No Accessory Muscle Use, Chest Non-Tender Cardiovascular: Normal Peripheral Pulses, Diastolic Murmur, Irregularly Irregular GI/Abdominal: Normal Bowel Sounds, Soft, Non-Tender, No Organomegaly, No Abnormal Bruit Neurological: Alert, Normal Mood/Affect, CN II-XII Intact, Normal Gait, No Motor /Sensory Deficits, Oriented x 3 Back Exam: Normal Inspection, Full Range of Motion Extremities: Normal Inspection, Normal Range of Motion, Non-Tender, Normal Capillary Refill, Pedal Edema (+3 BLE) Psychiatric: Normal Affect, Normal Mood Skin Exam: Warm, Dry, Normal Color, No Rash, Wound/Incision (scratch appearing wounds to BLE anterior. No surroudning redness, heat, drainage. ) EKG INTERPRETATION EKG Date: 03/05/19 Time: 11:52 Rhythm: A-Flutter Rate (Beats/Min): 81 Comparison: No Change Course - Vital Signs Last Recorded V/S: Last Vital Signs Temp 98.1 F 03/05/19 11:34 Pulse 86 03/05/19 11:34 Resp 20 03/05/19 11:34 BP 137/94 H 03/05/19 11:34 Pulse Ox 96 03/05/19 11:34 - Orders/Labs/Meds Orders: Active Orders 24 hr Category Date Time Status Chest 2V [CR] Stat Exams 03/05/19 11:40 Taken Labs: Laboratory Tests 03/05/19 03/05/19 03/05/19 Range/Units 11:40 11:40 11:41 WBC 5.9 (5.0-10.0) 10^3/uL RBC 4.03 L (4.50-6.00) 10^6/uL Hgb 12.9 L (14.0-18.0) g/dL Hct 38.8 L (40.0-54.0) % MCV 96.3 H (82.0-94.0) fL MCH 32.0 (27.0-32.0) pg MCHC 33.2 (33.0-38.0) g/dL RDW Coeff of Brayan 14.8 (11.0-15.0) % Plt Count 225 (150-400) 10^3/uL Neut % (Auto) 73.4 (35-85) % Lymph % (Auto) 12.9 (10-55) % [place] % (Auto) 11.9 (0-16) % Eos % (Auto) 1.5 (0-5) % Baso % (Auto) 0.3 (0-3) % Neut # (Auto) 4.30 (1.80-7.00) 10^3/uL Lymph # (Auto) 0.76 L (1.00-4.80) 10^3/uL [place] # (Auto) 0.70 (0.00-0.80) 10^3/uL Eos # (Auto) 0.09 (0.00-0.45) 10^3/uL Baso # (Auto) 0.02 10^3/uL PT 23.3 H (9.7-12.3) SEC INR 2.38 H (0.92-1.18) Sodium 143 (136-145) mEq/L Potassium 3.7 (3.5-5.0) mEq/L Chloride 107 H (98-106) mEq/L Carbon Dioxide 28 (21-32) mmol/L BUN 26 H (7-18) mg/dL Creatinine 1.1 (0.7-1.3) mg/dL Est Cr Clr Drug Dosing 56.60 mL/min Estimated GFR (MDRD) > 60 (>=60) mL/min Glucose 105 H (75-99) mg/dL Calcium 9.7 (8.4-10.1) mg/dL Total Bilirubin 0.5 (0.0-1.0) mg/dL AST 26 (15-37) U/L ALT 25 (12-78) U/L Alkaline Phosphatase 78 (46-116) U/L Creatine Kinase 76 (35-232) U/L Troponin I 0.035 (0.00-0.06) ng/mL NT-Pro-B Natriuret Pep 3681 H (0-1000) pg/mL Total Protein 6.9 (6.4-8.2) g/dL Albumin 3.6 (3.4-5.0) g/dL - Radiology Interpretation Free Text/Narrative:: CXR: Possible LLL infiltrate. with widening mediastinum. - Re-Assessments/Exams Free Text/Narrative Re-Assessment/Exam: 03/05/19 12:21 Labs have been reviewed. Discussed patient with PCP. Will admit. Departure - Departure Time of Disposition: 12:22 Disposition: Admitted As Inpatient 65 Condition: Fair Clinical Impression: Dizziness Atrial flutter Qualifiers: Atrial flutter type: typical Qualified Code(s): I48.3 - Typical atrial flutter Fall at home Qualifiers: Encounter type: initial encounter Qualified Code(s): W19.XXXA - Unspecified fall, initial encounter; Y92.009 - Unspecified place in unspecified non- institutional (private) residence as the place of occurrence of the external cause Congestive heart failure (CHF) Qualifiers: Heart failure type: unspecified Heart failure chronicity: acute on chronic Qualified Code(s): I50.9 - Heart failure, unspecified Pneumonia Qualifiers: Pneumonia type: due to unspecified organism Laterality: left Lung location: lower lobe of lung Qualified Code(s): J18.1 - Lobar pneumonia, unspecified organism - Discharge Information *PRESCRIPTION DRUG MONITORING PROGRAM REVIEWED*: Not Applicable *COPY OF PRESCRIPTION DRUG MONITORING REPORT IN PATIENT FLORA: Not Applicable Forms: ED Department Discharge - My Orders Last 24 Hours: My Active Orders 03/05/19 11:40 Chest 2V [CR] Stat - Assessment/Plan Last 24 Hours: My Active Orders 03/05/19 11:40 Chest 2V [CR] Stat Plan: PLEASE SEE RN NOTE FOR PFSH PLEASE USE ER H&P ADMIT H&P.
[2019-03-05 12:13] LABS: CHLORIDE,CL 107 mEq/L (98-106); SODIUM,NA 143 mEq/L (136-145)
[2019-03-05] MEDS ORDERED: traMADol 50 MG Tab PO PRN (13:20)
[2019-03-05] MEDS ORDERED: Non-Formulary Medication 1 Each (Rosuvastatin [Crestor] 10 MG) PO SCH (13:20)
[2019-03-05] MEDS ORDERED: Ondansetron 4 MG/2 ML SDV IV PRN (13:20)
[2019-03-05] MEDS ORDERED: Ibuprofen 200 MG Tab PO PRN (13:20)
[2019-03-05] MEDS ORDERED: Acetaminophen 325 MG Tab PO PRN (13:20)
[2019-03-05] MEDS: cefTRIAXone 1 GM Vial IVPUSH SCH (15:07)
[2019-03-05] MEDS: Azithromycin 500 MG in Sodium Chloride 0.9% 250 ML IV SCH (15:07)
[2019-03-05] MEDS: Acetaminophen/HYDROcodone 325-5 MG Tab PO PRN (15:59)
[2019-03-05] MEDS ORDERED: Warfarin 2.5 MG Tab PO ONE (18:45)
[2019-03-05] MEDS: Mirtazapine 15 MG Tab PO SCH (19:37)
[2019-03-05] MEDS: Fluticasone Propionate Nasal Spray 16 GM Bottle NASBOTH SCH (19:38)
[2019-03-05] MEDS ORDERED: Non-Formulary Medication 1 Each (Olopatadine [Patanol 0.1% Ophth Soln] 1 DROP) EYEBOTH SCH (20:00)
[2019-03-05] MEDS ORDERED: Apixaban 5 MG Tab PO SCH (20:00)
[2019-03-05] MEDS: Bacitracin/Neomycin/Polymyxin B Oint 28.4 GM Tube TOP SCH (22:00)
[2019-03-05] MEDS ORDERED: Bacitracin/Neomycin/Polymyxin B Oint 28.4 GM Tube ONE (22:30)
[2019-03-06] MEDS: Loratadine 10 MG Tab PO SCH (07:35)
[2019-03-06] MEDS: Multivitamin Tab PO SCH (07:35)
[2019-03-06] MEDS: Furosemide 40 MG Tab PO SCH (07:36)
[2019-03-06] MEDS: Aspirin 325 MG Tab.EC PO SCH (07:36)
[2019-03-06] MEDS: Bacitracin/Neomycin/Polymyxin B Oint 28.4 GM Tube TOP SCH ×2 (07:36→19:58)
[2019-03-06] MEDS: Acetaminophen/HYDROcodone 325-5 MG Tab PO PRN ×2 (07:37→16:00)
[2019-03-06 07:48] LABS: CHLORIDE,CL 107 mEq/L (98-106); SODIUM,NA 142 mEq/L (136-145)
[2019-03-06] MEDS ORDERED: Diltiazem 120 MG Cap.CD PO SCH (08:00)
[2019-03-06] MEDS ORDERED: Diltiazem 180 MG Cap.CD PO SCH (08:15)
[2019-03-06] MEDS: Diltiazem IR 30 MG Tab PO SCH ×2 (09:27→19:57)
[2019-03-06] MEDS ORDERED: Warfarin 5 MG Tab PO SCH (12:00)
--- NOTE | 2019-03-06 12:51 | PCM.PN ---
- General Info Date of Service: 03/06/19 Admission Dx/Problem (Free Text): LLL Pneumonia Dizziness Functional Status: Reports: Pain Controlled - Review of Systems General: Reports: Weakness, Fatigue. Denies: Fever HEENT: Denies: Ear Pain, Sore Throat, Visual Changes Pulmonary: Reports: Cough. Denies: Shortness of Breath Cardiovascular: Denies: Chest Pain, Edema, Lightheadedness Gastrointestinal: Denies: Abdominal Pain, Nausea, Vomiting Genitourinary: Reports: No Symptoms Musculoskeletal: Reports: Leg Pain Skin: Reports: Other (abrasions to legs) Neurological: Reports: Dizziness, Weakness - Patient Data Vitals - Most Recent: Last Vital Signs Temp 98.9 F 03/06/19 08:00 Pulse 93 03/06/19 08:00 Resp 16 03/06/19 08:00 BP 131/98 H 03/06/19 08:00 Pulse Ox 96 03/06/19 08:00 Weight - Most Recent: 162 lb I&O - Last 24 Hours: Intake & Output 03/05/19 03/06/19 03/06/19 22:59 06:59 14:59 Intake Total 500 Balance 500 Lab Results Last 24 Hours: Laboratory Results - last 24 hr 03/06/19 03/06/19 Range/Units 07:00 07:00 WBC 7.4 (5.0-10.0) 10^3/uL RBC 4.00 L (4.50-6.00) 10^6/uL Hgb 12.7 L (14.0-18.0) g/dL Hct 38.3 L (40.0-54.0) % MCV 95.8 H (82.0-94.0) fL MCH 31.8 (27.0-32.0) pg MCHC 33.2 (33.0-38.0) g/dL RDW Coeff of Brayan 14.9 (11.0-15.0) % Plt Count 214 (150-400) 10^3/uL Neut % (Auto) 68.4 (35-85) % Lymph % (Auto) 16.2 (10-55) % [place] % (Auto) 12.1 (0-16) % Eos % (Auto) 3.2 (0-5) % Baso % (Auto) 0.1 (0-3) % Neut # (Auto) 5.07 (1.80-7.00) 10^3/uL Lymph # (Auto) 1.20 (1.00-4.80) 10^3/uL [place] # (Auto) 0.90 H (0.00-0.80) 10^3/uL Eos # (Auto) 0.24 (0.00-0.45) 10^3/uL Baso # (Auto) 0.01 10^3/uL Sodium 142 (136-145) mEq/L Potassium 3.8 (3.5-5.0) mEq/L Chloride 107 H (98-106) mEq/L Carbon Dioxide 25 (21-32) mmol/L BUN 24 H (7-18) mg/dL Creatinine 0.9 (0.7-1.3) mg/dL Est Cr Clr Drug Dosing 69.17 mL/min Estimated GFR (MDRD) > 60 (>=60) mL/min Glucose 94 (75-99) mg/dL Calcium 8.8 (8.4-10.1) mg/dL C-Reactive Protein < 0.2 L (0.2-0.8) mg/dL Med Orders - Current: Current Medications Acetaminophen (Tylenol) 650 mg PO Q4H PRN PRN Reason: Pain (Mild 1-3)/fever Hydrocodone Bitart/Acetaminophen ([place] 325-5 Mg) 1 tab PO Q6H PRN PRN Reason: Pain Last Admin: 03/06/19 07:37 Dose: 1 tab Aspirin (Ecotrin) [address] [facility] Last Admin: 03/06/19 07:36 Dose: 325 mg Ceftriaxone Sodium (Rocephin) [address] [facility] Last Admin: 03/05/19 15:07 Dose: 1 gm Diltiazem HCl (Cardizem) [address] [facility] Stop: 03/06/19 20:01 Last Admin: 03/06/19 09:27 Dose: 30 mg Diltiazem HCl (Cardizem Cd) [address] [facility] Fluticasone Propionate (Flonase) [address] [facility] Last Admin: 03/05/19 19:38 Dose: 2 spray Furosemide (Lasix) [address] [facility] Last Admin: 03/06/19 07:36 Dose: 40 mg Azithromycin 500 mg/ Sodium (Chloride) 250 mls @ 250 mls/hr IV Q24H [facility] Last Admin: 03/05/19 15:07 Dose: 250 mls/hr Ibuprofen (Motrin) 600 mg PO Q6H PRN PRN Reason: Pain (mild 1-3) Loratadine (Claritin) [address] [facility] Last Admin: 03/06/19 07:35 Dose: 10 mg Mirtazapine (Remeron) [address] [facility] Last Admin: 03/05/19 19:37 Dose: 15 mg Multivitamins/Minerals/Vitamin C (Tab-A-[place]) [address] [facility] Last Admin: 03/06/19 07:35 Dose: 1 tab Neomycin/Polymyxin/Bacitracin (Triple Antibiotic Oint) [address] [facility] Last Admin: 03/06/19 07:36 Dose: 1 applic Non-Formulary Medication (Coconut Oil [Coconut Oil]) 1,[address] [facility] Non-Formulary Medication (Ipratropium [place] [Ipratropium [place]]) [address] [facility] Non-Formulary Medication (Rosuvastatin [Crestor]) [address] [facility] Non-Formulary Medication (Olopatadine [Patanol 0.1% Ophth Soln]) [address] [facility] Ondansetron HCl (Zofran) 4 mg IV Q6H PRN PRN Reason: Nausea/Vomiting Tramadol HCl (Ultram) 50 mg PO Q8H PRN PRN Reason: Pain Warfarin Sodium (Coumadin) 2.5 mg PO MoWeFr@1200 [facility] Warfarin Sodium (Coumadin) 5 mg PO SuTuThSa@1200 [facility] Last Admin: 03/06/19 12:19 Dose: 5 mg Discontinued Medications Diltiazem HCl (Cardizem Cd) [address] [facility] Last Admin: 03/06/19 07:38 Dose: 120 mg Diltiazem HCl (Cardizem Cd) [address] [facility] Neomycin/Polymyxin/Bacitracin (Triple Antibiotic Oint) Confirm Administered Dose 28.4 gm .ROUTE .STK-MED ONE Stop: 03/05/19 22:31 Last Admin: 03/05/19 22:52 Dose: Not Given Warfarin Sodium (Coumadin) 2.5 mg PO ONETIME ONE Stop: 03/05/19 18:46 Last Admin: 03/05/19 18:48 Dose: 2.5 mg - Exam General: Alert, Oriented HEENT: Mucous Membr. Moist/[place] Neck: Supple Lungs: Decreased Breath Sounds Cardiovascular: Regular Rate, Regular Rhythm GI/Abdominal Exam: Normal Bowel Sounds, Soft, Non-Tender Extremities: Pedal Edema (1-2+ edema in lower extremities. Has multiple abrasions to lower legs. Redness. Does have purulent drainage to the ulcerated area) Wound/Incisions: Drainage, Erythema Neurological: No New Focal Deficit - Problem List & Annotations (1) Atrial flutter SNOMED Code(s): 3844127 Code(s): I48.92 - UNSPECIFIED ATRIAL FLUTTER Status: Acute Priority: High Current Visit: Yes Qualifiers: Atrial flutter type: typical Qualified Code(s): I48.3 - Typical atrial flutter (2) Congestive heart failure (CHF) SNOMED Code(s): 56271529 Code(s): I50.9 - HEART FAILURE, UNSPECIFIED Status: Chronic Priority: High Current Visit: Yes Qualifiers: Heart failure type: systolic Heart failure chronicity: acute on chronic Qualified Code(s): I50.23 - Acute on chronic systolic (congestive) heart failure (3) Dizziness SNOMED Code(s): 767554177, 863236026 Code(s): R42 - DIZZINESS AND GIDDINESS Status: Acute Priority: High Current Visit: Yes (4) Pneumonia SNOMED Code(s): 579229391 Code(s): J18.9 - PNEUMONIA, UNSPECIFIED ORGANISM Status: Acute Priority: High Current Visit: Yes Qualifiers: Pneumonia type: due to other aerobic Gram-negative bacteria Laterality: left Lung location: lower lobe of lung Qualified Code(s): J15.6 - Pneumonia due to other Gram-negative bacteria - Problem List Review Problem List Initiated/Reviewed/Updated: Yes - My Orders Last 24 Hours: My Active Orders 03/05/19 20:00 Olopatadine [Patanol 0.1% Ophth Soln] 1 drop EYEBOTH BID 03/06/19 08:00 Furosemide [Lasix] 40 mg PO DAILY 03/06/19 08:45 Diltiazem IR [Cardizem] 30 mg PO BID 03/06/19 12:00 Warfarin [Coumadin] 5 mg PO SuTuThSa@1200 03/07/19 08:00 Diltiazem [Cardizem CD] 180 mg PO DAILY 03/07/19 12:00 Warfarin [Coumadin] 2.5 mg PO MoWeFr@1200 - Assessment Assessment:: LLL Pneumonia Dizziness Acute on chronic CHF - Plan Plan:: Patient continues to complain of dizziness. States is "fine at rest but dizzy when gets up". Telemetry shows chronic atrial flutter. Rate was low yesterday , down to 40. Cardizem was reduced and digoxin was held. Denies chest pain or shortness of breath. Lower legs do have multiple abrasions and redness. Has open sores with purulent drainage to the posterior right calf. WBC 7.4. Hgb 12.7. CRP negative. INR 2.38. Blood pressure is high today at 131/98. Will continue with IV Rocephin and Zithromax. Elevate legs. Lasix for better control of his CHF as has history of noncompliance. Social service consult for discharge plan.
[2019-03-06] MEDS: cefTRIAXone 1 GM Vial IVPUSH SCH (13:30)
[2019-03-06] MEDS: Azithromycin 500 MG in Sodium Chloride 0.9% 250 ML IV SCH (14:44)
[2019-03-06] MEDS: IPRATROPIUM BROMIDE NASBOTH SCH ×4 (14:47→19:59)
[2019-03-06] MEDS: COCONUT OIL 1000 MG PO SCH (14:47)
[2019-03-06] MEDS: Mirtazapine 15 MG Tab PO SCH (19:56)
[2019-03-06] MEDS: Fluticasone Propionate Nasal Spray 16 GM Bottle NASBOTH SCH (19:57)
[2019-03-07 07:23] LABS: CHLORIDE,CL 105 mEq/L (98-106); SODIUM,NA 138 mEq/L (136-145)
[2019-03-07] MEDS: Aspirin 325 MG Tab.EC PO SCH (08:11)
[2019-03-07] MEDS: Furosemide 40 MG Tab PO SCH (08:12)
[2019-03-07] MEDS: IPRATROPIUM BROMIDE NASBOTH SCH ×2 (08:12→19:37)
[2019-03-07] MEDS: Loratadine 10 MG Tab PO SCH (08:12)
[2019-03-07] MEDS: Diltiazem 180 MG Cap.CD PO SCH (08:12)
[2019-03-07] MEDS: Bacitracin/Neomycin/Polymyxin B Oint 28.4 GM Tube TOP SCH ×2 (08:12→19:38)
[2019-03-07] MEDS: COCONUT OIL 1000 MG PO SCH (08:12)
[2019-03-07] MEDS: Multivitamin Tab PO SCH (10:48)
--- NOTE | 2019-03-07 11:24 | PCM.PN ---
- General Info Date of Service: 03/07/19 Admission Dx/Problem (Free Text): LLL Pneumonia Dizziness Functional Status: Reports: Pain Controlled, Tolerating Diet, Ambulating - Review of Systems General: Reports: Weakness, Fatigue HEENT: Reports: No Symptoms Pulmonary: Reports: Cough. Denies: Shortness of Breath Cardiovascular: Reports: Edema. Denies: Chest Pain, Lightheadedness Gastrointestinal: Denies: Abdominal Pain, Nausea, Vomiting Genitourinary: Reports: No Symptoms Musculoskeletal: Reports: Shoulder Pain, Back Pain Skin: Reports: Rash Neurological: Reports: Dizziness, Weakness - Patient Data Vitals - Most Recent: Last Vital Signs Temp 98.9 F 03/07/19 08:00 Pulse 97 03/07/19 08:00 Resp 16 03/07/19 08:00 BP 136/77 03/07/19 08:13 Pulse Ox 100 03/07/19 08:00 Weight - Most Recent: 162 lb Lab Results Last 24 Hours: Laboratory Results - last 24 hr 03/07/19 03/07/19 Range/Units 06:55 06:55 WBC 7.0 (5.0-10.0) 10^3/uL RBC 3.88 L (4.50-6.00) 10^6/uL Hgb 12.5 L (14.0-18.0) g/dL Hct 37.2 L (40.0-54.0) % MCV 95.9 H (82.0-94.0) fL MCH 32.2 H (27.0-32.0) pg MCHC 33.6 (33.0-38.0) g/dL RDW Coeff of Brayan 14.8 (11.0-15.0) % Plt Count 212 (150-400) 10^3/uL Neut % (Auto) 67.5 (35-85) % Lymph % (Auto) 15.5 (10-55) % [place] % (Auto) 13.2 (0-16) % Eos % (Auto) 3.7 (0-5) % Baso % (Auto) 0.1 (0-3) % Neut # (Auto) 4.71 (1.80-7.00) 10^3/uL Lymph # (Auto) 1.08 (1.00-4.80) 10^3/uL [place] # (Auto) 0.92 H (0.00-0.80) 10^3/uL Eos # (Auto) 0.26 (0.00-0.45) 10^3/uL Baso # (Auto) 0.01 10^3/uL Sodium 138 (136-145) mEq/L Potassium 4.1 (3.5-5.0) mEq/L Chloride 105 (98-106) mEq/L Carbon Dioxide 25 (21-32) mmol/L BUN 22 H (7-18) mg/dL Creatinine 1.0 (0.7-1.3) mg/dL Est Cr Clr Drug Dosing 62.26 mL/min Estimated GFR (MDRD) > 60 (>=60) mL/min Glucose 105 H (75-99) mg/dL Calcium 8.9 (8.4-10.1) mg/dL C-Reactive Protein < 0.2 L (0.2-0.8) mg/dL Med Orders - Current: Current Medications Acetaminophen (Tylenol) 650 mg PO Q4H PRN PRN Reason: Pain (Mild 1-3)/fever Last Admin: 03/06/19 22:26 Dose: 650 mg Hydrocodone Bitart/Acetaminophen (Kiefer 325-5 Mg) 1 tab PO Q6H PRN PRN Reason: Pain Last Admin: 03/06/19 16:00 Dose: 1 tab Ceftriaxone Sodium (Rocephin) 1 gm IVPUSH Q24H [facility] Last Admin: 03/06/19 13:30 Dose: 1 gm Diltiazem HCl (Cardizem Cd) 180 mg PO DAILY [facility] Last Admin: 03/07/19 08:12 Dose: 180 mg Fluticasone Propionate (Flonase) 0 gm NASBOTH BEDTIME [facility] Last Admin: 03/06/19 19:57 Dose: 2 spray Furosemide (Lasix) 40 mg PO DAILY [facility] Last Admin: 03/07/19 08:12 Dose: 40 mg Azithromycin 500 mg/ Sodium (Chloride) 250 mls @ 250 mls/hr IV Q24H [facility] Last Admin: 03/06/19 14:44 Dose: 250 mls/hr Ibuprofen (Motrin) 600 mg PO Q6H PRN PRN Reason: Pain (mild 1-3) Loratadine (Claritin) 10 mg PO DAILY [facility] Last Admin: 03/07/19 08:12 Dose: 10 mg Mirtazapine (Remeron) 15 mg PO BEDTIME [facility] Last Admin: 03/06/19 19:56 Dose: 15 mg Multivitamins/Minerals/Vitamin C (Tab-A-Sheeba) 1 tab PO DAILY [facility] Last Admin: 03/07/19 10:48 Dose: 1 tab Neomycin/Polymyxin/Bacitracin (Triple Antibiotic Oint) 1 gm TOP BID [facility] Last Admin: 03/07/19 08:12 Dose: 1 applic Coconut Oil [Coconut Oil] 1,000 MgOwn Med 1,000 mg PO DAILY [facility] Last Admin: 03/07/19 08:12 Dose: 1,000 mg Ipratropium [place] [Ipratropium [place] ] 2 SpraysOwn Med* * 2 sprays NASBOTH BID [facility] Last Admin: 03/07/19 08:12 Dose: 2 sprays Non-Formulary Medication (Rosuvastatin [Crestor]) 10 mg PO Q48H [facility] Non-Formulary Medication (Olopatadine [Patanol 0.1% Ophth Soln]) 1 drop EYEBOTH BID [facility] Ondansetron HCl (Zofran) 4 mg IV Q6H PRN PRN Reason: Nausea/Vomiting Tramadol HCl (Ultram) 50 mg PO Q8H PRN PRN Reason: Pain Warfarin Sodium (Coumadin) 2.5 mg PO MoWeFr@1200 [facility] Warfarin Sodium (Coumadin) 5 mg PO SuTuThSa@1200 [facility] Last Admin: 03/06/19 12:19 Dose: 5 mg Discontinued Medications Aspirin (Ecotrin) 325 mg PO DAILY [facility] Last Admin: 03/07/19 08:11 Dose: 325 mg Diltiazem HCl (Cardizem Cd) 120 mg PO DAILY [facility] Last Admin: 03/06/19 07:38 Dose: 120 mg Diltiazem HCl (Cardizem Cd) 180 mg PO DAILY [facility] Diltiazem HCl (Cardizem) 30 mg PO BID [facility] Stop: 03/06/19 20:01 Last Admin: 03/06/19 19:57 Dose: 30 mg Neomycin/Polymyxin/Bacitracin (Triple Antibiotic Oint) Confirm Administered Dose 28.4 gm .ROUTE .STK-MED ONE Stop: 03/05/19 22:31 Last Admin: 11/04/19 22:52 Dose: Not Given Warfarin Sodium (Coumadin) 2.5 mg PO ONETIME ONE Stop: 03/05/19 18:46 Last Admin: 03/05/19 18:48 Dose: 2.5 mg - Exam General: Alert, Oriented HEENT: Mucous Membr. Moist/[place] Neck: Supple Lungs: Decreased Breath Sounds Cardiovascular: Regular Rate, Regular Rhythm GI/Abdominal Exam: Normal Bowel Sounds, Soft, Non-Tender Extremities: Pedal Edema (1+ pitting edema. ), Increased Warmth, Other ( purulent drainage to posterior right calf and anterior left montes; multiple abrasions to lower legs.) Wound/Incisions: Drainage, Erythema Neurological: No New Focal Deficit - Problem List & Annotations (1) Atrial flutter SNOMED Code(s): 6040140 Code(s): I48.92 - UNSPECIFIED ATRIAL FLUTTER Status: Acute Priority: High Current Visit: Yes Qualifiers: Atrial flutter type: typical Qualified Code(s): I48.3 - Typical atrial flutter (2) Congestive heart failure (CHF) SNOMED Code(s): 98834776 Code(s): I50.9 - HEART FAILURE, UNSPECIFIED Status: Chronic Priority: High Current Visit: Yes Qualifiers: Heart failure type: systolic Heart failure chronicity: acute on chronic Qualified Code(s): I50.23 - Acute on chronic systolic (congestive) heart failure (3) Dizziness SNOMED Code(s): 195817822, 046005770 Code(s): R42 - DIZZINESS AND GIDDINESS Status: Acute Priority: High Current Visit: Yes (4) Pneumonia SNOMED Code(s): 509697751 Code(s): J18.9 - PNEUMONIA, UNSPECIFIED ORGANISM Status: Acute Priority: High Current Visit: Yes Qualifiers: Pneumonia type: due to other aerobic Gram-negative bacteria Laterality: left Lung location: lower lobe of lung Qualified Code(s): J15.6 - Pneumonia due to other Gram-negative bacteria - Problem List Review Problem List Initiated/Reviewed/Updated: Yes - My Orders Last 24 Hours: My Active Orders 03/06/19 12:00 Warfarin [Coumadin] 5 mg PO SuTuThSa@1200 03/06/19 13:00 Consult to Case Management/Pig Conveyor Operator [CONS] Routine 03/07/19 08:00 Diltiazem [Cardizem CD] 180 mg PO DAILY 03/07/19 08:11 Consult to Physical Therapy [PT Evaluation and Treatment] [CONS] Routine 03/07/19 12:00 Warfarin [Coumadin] 2.5 mg PO MoWeFr@1200 - Assessment Assessment:: LLL Pneumonia Dizziness Acute on chronic CHF - Plan Plan:: Patient continues to complain of dizziness. States is "fine at rest but dizzy when gets up". Telemetry shows chronic atrial flutter. Rate was low yesterday , down to 40. Cardizem was reduced and digoxin was held. Denies chest pain or shortness of breath. Lower legs do have multiple abrasions and redness. Has open sores with purulent drainage to the posterior right calf. WBC 7.4. Hgb 12.7. CRP negative. INR 2.38. Blood pressure is high today at 131/98. Will continue with IV Rocephin and Zithromax. Elevate legs. Lasix for better control of his CHF as has history of noncompliance. Social service consult for discharge plan. 03-07-2019 Patient admits to feeling better today, less dizziness. Telemetry continues to show atrial flutter, rate more controlled. No chest pain or shortness of breath. Does have nonproductive cough. Legs continue to be mildly red, open areas to right posterior calf and anterior left montes with serosanguinous drainage. Does have edema 1+ pitting in lower extremities. WBCstable at 7.0. Hemoglobin, BMP stable. Will continue with current IV meds. Will have PT see patient for ambulation/ strengthening and wound care.
[2019-03-07] MEDS ORDERED: Warfarin 2.5 MG Tab PO SCH (12:00)
[2019-03-07] MEDS: cefTRIAXone 1 GM Vial IVPUSH SCH (13:47)
[2019-03-07] MEDS: Acetaminophen/HYDROcodone 325-5 MG Tab PO PRN (13:56)
[2019-03-07] MEDS: Azithromycin 500 MG in Sodium Chloride 0.9% 250 ML IV SCH (13:59)
[2019-03-07] MEDS: Mirtazapine 15 MG Tab PO SCH (19:37)
[2019-03-07] MEDS: Fluticasone Propionate Nasal Spray 16 GM Bottle NASBOTH SCH (19:39)
[2019-03-08 08:18] LABS: CHLORIDE,CL 98 mEq/L (98-106); SODIUM,NA 142 mEq/L (136-145)
[2019-03-08] MEDS: Multivitamin Tab PO SCH (08:37)
[2019-03-08] MEDS: Furosemide 40 MG Tab PO SCH (08:37)
[2019-03-08] MEDS: Diltiazem 180 MG Cap.CD PO SCH (08:37)
[2019-03-08] MEDS: Loratadine 10 MG Tab PO SCH (08:37)
[2019-03-08] MEDS: COCONUT OIL 1000 MG PO SCH (08:38)
[2019-03-08] MEDS: IPRATROPIUM BROMIDE NASBOTH SCH (08:38)
[2019-03-08] MEDS: Bacitracin/Neomycin/Polymyxin B Oint 28.4 GM Tube TOP SCH (08:40)
[2019-03-08 08:52] VITALS: BP 119/83; PULSE 79
--- NOTE | 2019-03-08 18:25 | PCM.DCSUM1 ---
Discharge Summary - Hospital Course Free Text/Narrative:: Andi is a 78 year old male that presented to the ER with complaints of dizziness off an on for the last month. States in the past, felt it was related to his heart. Dizziness is now constant , worse with position changes or with walking and when laying down. Intermittent chest pain over the days prior. Short of breath at times. Nonproductive cough. No fevers. Does have chronic issues with pedal edema, felt legs were more swollen than his norm. Has had intermittent falls, abrasions on his legs from "landing in a [place]". Chest xray showed left lower lobe infiltrate. Telemetry atrial flutter. Labs unremarkable. WBC 5.9, hemoglobin 12.9. INR 2.38. electrolytes normal. ProBNP 3681. Troponin negative. CRP negative. Admitted and started on IV Zithromax and Rocephin. Diagnosis: Stroke: No Modified Rina Scale: No Symptoms at All Modified Rina Scale Score: 0 - Discharge Data Discharge Date: 03/08/19 Discharge Disposition: DC/Tfer W/I Hosp To [place] [id number] Condition: Fair - Referral to Home Health Primary Care Physician: Oumar Joseph MD - Discharge Diagnosis/Problem(s) (1) Atrial flutter SNOMED Code(s): 6015521 ICD Code: I48.92 - UNSPECIFIED ATRIAL FLUTTER Status: Acute Priority: High Qualifiers: Atrial flutter type: typical Qualified Code(s): I48.3 - Typical atrial flutter (2) Congestive heart failure (CHF) SNOMED Code(s): 19338971 ICD Code: I50.9 - HEART FAILURE, UNSPECIFIED Status: Chronic Priority: High Qualifiers: Heart failure type: systolic Heart failure chronicity: acute on chronic Qualified Code(s): I50.23 - Acute on chronic systolic (congestive) heart failure (3) Dizziness SNOMED Code(s): 198587703, 890135022 ICD Code: R42 - DIZZINESS AND GIDDINESS Status: Acute Priority: High (4) Pneumonia SNOMED Code(s): 087415633 ICD Code: J18.9 - PNEUMONIA, UNSPECIFIED ORGANISM Status: Acute Priority : High Qualifiers: Pneumonia type: due to other aerobic Gram-negative bacteria Laterality: left Lung location: lower lobe of lung Qualified Code(s): J15.6 - Pneumonia due to other Gram-negative bacteria - Patient Summary/Data Consults: Consultations 03/06/19 13:00 Consult to Case Management/Hostler Helper [CONS] Routine 03/07/19 08:11 Consult to Physical Therapy [PT Evaluation and Treatment] [CONS] Routine - Discharge Plan *PRESCRIPTION DRUG MONITORING PROGRAM REVIEWED*: Not Applicable *COPY OF PRESCRIPTION DRUG MONITORING REPORT IN PATIENT FLORA: Not Applicable Home Medications: Home Meds Hydrocodone/Acetaminophen [Hydrocodon-Acetaminophen 5-500] 1 each PO Q6H PRN [History] Ipratropium [place] 2 sprays NASBOTH BID 05/31/13 [History] Loratadine [Claritin] 10 mg PO DAILY 05/31/13 [History] Multivitamin [Multi-Vitamin Daily] 1 each PO DAILY 05/31/13 [History] Rosuvastatin [Crestor] 10 mg PO Q48H 05/31/13 [History] Coconut Oil 1,000 mg PO DAILY 10/20/17 [History] Fluticasone Propionate [Flonase Allergy Relief] 2 sprays NASBOTH BEDTIME [History] Mirtazapine 15 mg PO BEDTIME 10/20/17 [History] Acetaminophen [Tylenol Extra Strength] 500 - 1,000 mg PO Q6H PRN 10/03/18 [ History] Digoxin 62.5 mg PO DAILY 03/05/19 [History] Diltiazem HCl [Cartia Xt] 180 mg PO DAILY 03/05/19 [History] Furosemide 40 mg PO DAILY 03/05/19 [History] Olopatadine [Patanol 0.1% Ophth Soln] 1 drop EYEBOTH BID 03/05/19 [History] Warfarin [Coumadin] 2.5 mg PO ASDIRECTED 03/05/19 [History] Warfarin [Coumadin] 5 mg PO ASDIRECTED 03/05/19 [History] Patient Handouts: Community-Acquired Pneumonia, Adult Forms: ED Department Discharge Referrals: Oumar Joseph MD [Primary Care Provider] - - Discharge Summary/Plan Comment DC Time >30 min.: No - General Info Date of Service: 03/08/19 Admission Dx/Problem (Free Text: LLL Pneumonia Dizziness Functional Status: Reports: Pain Controlled, Tolerating Diet, Ambulating - Review of Systems General: Reports: Weakness, Fatigue. Denies: Fever HEENT: Reports: No Symptoms Pulmonary: Reports: Cough. Denies: Shortness of Breath Cardiovascular: Reports: Edema. Denies: Chest Pain, Lightheadedness Gastrointestinal: Denies: Abdominal Pain, Nausea, Vomiting Genitourinary: Reports: No Symptoms Musculoskeletal: Reports: Shoulder Pain Skin: Reports: Other (abrasions to legs) Neurological: Reports: Weakness - Patient Data Vitals - Most Recent: Last Vital Signs Temp 97.1 F 03/08/19 08:00 Pulse 79 03/08/19 08:00 Resp 16 03/08/19 08:00 BP 119/83 03/08/19 08:00 Pulse Ox 97 03/08/19 08:00 Weight - Most Recent: 162 lb Lab Results - Last 24 hrs: Laboratory Results - last 24 hr 03/08/19 03/08/19 Range/Units 07:30 07:30 WBC 7.8 (5.0-10.0) 10^3/uL RBC 4.06 L (4.50-6.00) 10^6/uL Hgb 13.1 L (14.0-18.0) g/dL Hct 38.1 L (40.0-54.0) % MCV 93.8 (82.0-94.0) fL MCH 32.3 H (27.0-32.0) pg MCHC 34.4 (33.0-38.0) g/dL RDW Coeff of Brayan 14.4 (11.0-15.0) % Plt Count 231 (150-400) 10^3/uL Neut % (Auto) 69.7 (35-85) % Lymph % (Auto) 14.9 (10-55) % [place] % (Auto) 11.5 (0-16) % Eos % (Auto) 3.8 (0-5) % Baso % (Auto) 0.1 (0-3) % Neut # (Auto) 5.45 (1.80-7.00) 10^3/uL Lymph # (Auto) 1.17 (1.00-4.80) 10^3/uL [place] # (Auto) 0.90 H (0.00-0.80) 10^3/uL Eos # (Auto) 0.30 (0.00-0.45) 10^3/uL Baso # (Auto) 0.01 10^3/uL Sodium 142 (136-145) mEq/L Potassium 3.9 (3.5-5.0) mEq/L Chloride 98 (98-106) mEq/L Carbon Dioxide 25 (21-32) mmol/L BUN 17 (7-18) mg/dL Creatinine 1.0 (0.7-1.3) mg/dL Est Cr Clr Drug Dosing 62.26 mL/min Estimated GFR (MDRD) > 60 (>=60) mL/min Glucose 95 (75-99) mg/dL Calcium 9.0 (8.4-10.1) mg/dL C-Reactive Protein < 0.2 L (0.2-0.8) mg/dL Med Orders - Current: Current Medications Discontinued Medications Acetaminophen (Tylenol) 650 mg PO Q4H PRN PRN Reason: Pain (Mild 1-3)/fever Last Admin: 03/06/19 22:26 Dose: 650 mg Hydrocodone Bitart/Acetaminophen ([place] 325-5 Mg) 1 tab PO Q6H PRN PRN Reason: Pain Last Admin: 03/07/19 13:56 Dose: 1 tab Aspirin (Ecotrin) 325 mg PO DAILY [facility] Last Admin: 03/07/19 08:11 Dose: 325 mg Ceftriaxone Sodium (Rocephin) 1 gm IVPUSH Q24H [facility] Last Admin: 03/07/19 13:47 Dose: 1 gm Diltiazem HCl (Cardizem Cd) 120 mg PO DAILY [facility] Last Admin: 03/06/19 07:38 Dose: 120 mg Diltiazem HCl (Cardizem Cd) 180 mg PO DAILY [facility] Diltiazem HCl (Cardizem) 30 mg PO BID [facility] Stop: 03/06/19 20:01 Last Admin: 03/06/19 19:57 Dose: 30 mg Diltiazem HCl (Cardizem Cd) 180 mg PO DAILY [facility] Last Admin: 03/08/19 08:37 Dose: 180 mg Fluticasone Propionate (Flonase) 0 gm NASBOTH BEDTIME [facility] Last Admin: 03/07/19 19:39 Dose: 2 spray Furosemide (Lasix) 40 mg PO DAILY [facility] Last Admin: 03/08/19 08:37 Dose: 40 mg Azithromycin 500 mg/ Sodium (Chloride) 250 mls @ 250 mls/hr IV Q24H [facility] Last Admin: 03/07/19 13:59 Dose: 250 mls/hr Ibuprofen (Motrin) 600 mg PO Q6H PRN PRN Reason: Pain (mild 1-3) Loratadine (Claritin) 10 mg PO DAILY [facility] Last Admin: 03/08/19 08:37 Dose: 10 mg Mirtazapine (Remeron) 15 mg PO BEDTIME [facility] Last Admin: 03/07/19 19:37 Dose: 15 mg Multivitamins/Minerals/Vitamin C (Tab-A-Sheeba) 1 tab PO DAILY [facility] Last Admin: 03/08/19 08:37 Dose: 1 tab Neomycin/Polymyxin/Bacitracin (Triple Antibiotic Oint) Confirm Administered Dose 28.4 gm .ROUTE .STK-MED ONE Stop: 03/05/19 22:31 Last Admin: 03/05/19 22:52 Dose: Not Given Neomycin/Polymyxin/Bacitracin (Triple Antibiotic Oint) 1 gm TOP BID [facility] Last Admin: 03/08/19 08:40 Dose: 1 applic Coconut Oil [Coconut Oil] 1,000 MgOwn Med 1,000 mg PO DAILY [facility] Last Admin: 03/08/19 08:38 Dose: 1,000 mg Ipratropium [place] [Ipratropium [place] ] 2 SpraysOwn Med* * 2 sprays NASBOTH BID [facility] Last Admin: 03/08/19 08:38 Dose: 2 sprays Non-Formulary Medication (Rosuvastatin [Crestor]) 10 mg PO Q48H [facility] Non-Formulary Medication (Olopatadine [Patanol 0.1% [facility] Soln]) 1 drop EYEBOTH BID [facility] Ondansetron HCl (Zofran) 4 mg IV Q6H PRN PRN Reason: Nausea/Vomiting Tramadol HCl (Ultram) 50 mg PO Q8H PRN PRN Reason: Pain Last Admin: 03/08/19 08:37 Dose: 50 mg Warfarin Sodium (Coumadin) 2.5 mg PO MoWeFr@1200 [facility] Last Admin: 03/07/19 13:46 Dose: 2.5 mg Warfarin Sodium (Coumadin) 5 mg PO SuTuThSa@1200 [facility] Last Admin: 03/06/19 12:19 Dose: 5 mg Warfarin Sodium (Coumadin) 2.5 mg PO ONETIME ONE Stop: 03/05/19 18:46 Last Admin: 03/05/19 18:48 Dose: 2.5 mg - Exam General: Reports: Alert, Oriented HEENT: Reports: Mucous Membr. Moist/[place] Neck: Reports: Supple Lungs: Reports: Clear to Auscultation, Normal Respiratory Effort Cardiovascular: Reports: Regular Rate, Regular Rhythm GI/Abdominal Exam: Normal Bowel Sounds, Soft, Non-Tender Extremities: Pedal Edema (1+ pitting) Skin: Reports: Other (abrasions, redness to lower extremities. He does have serous drainage from right posterior calf and left anterior montes but is improving. ) Wound/Incisions: Reports: Drainage, Erythema Improving Neurological: Reports: No New Focal Deficit
== END 2019-03-08 09:29 | disposition swing bed (61) | DRG 177 ==
LOC: CC.ED 11:17 → CC.MS 12:52 → UNDOADMIN 12:52 → CC.MS 13:01
PROVIDERS: ADMIT Nurse Practitioner; ATTEND Family Medicine
DX: J15.6 Pneumonia due to other Gram-negative bacteria (principal); J18.1 Lobar pneumonia, unspecified organism; I50.23 Acute on chronic systolic (congestive) heart failure; I50.9 Heart failure, unspecified; I48.3 Typical atrial flutter; I11.0 Hypertensive heart disease with heart failure; M19.90 Unspecified osteoarthritis, unspecified site; S80.812A Abrasion, left lower leg, initial encounter; S80.811A Abrasion, right lower leg, initial encounter; Z91.81 History of falling; Z88.8 Allergy status to other drugs, medicaments and biological substances; R29.6 Repeated falls; H54.7 Unspecified visual loss; E78.00 Pure hypercholesterolemia, unspecified; W19.XXXA Unspecified fall, initial encounter; Z95.1 Presence of aortocoronary bypass graft; R07.9 Chest pain, unspecified; R42 Dizziness and giddiness; R06.02 Shortness of breath; R55 Syncope and collapse; R06.00 Dyspnea, unspecified; R60.9 Edema, unspecified; Z79.82 Long term (current) use of aspirin; Z90.49 Acquired absence of other specified parts of digestive tract; Z79.899 Other long term (current) drug therapy; Z79.01 Long term (current) use of anticoagulants; Y92.009 Unspecified place in unspecified non-institutional (private) residence as the place of occurrence of the external cause
CPT/HCPCS: 36415; 71046; 80048; 80053; 82550; 83880; 84484; 85025; 85610; 86140; 93005; 93010; 97022-GP; 97161-GP; 99285-25; A9270-GY; J0456; J0696; J7050

== ENCOUNTER 2019-03-08 09:16 | Inpatient (IN) | payer MEDICARE, BC ==
[2019-03-08] MEDS ORDERED: Ondansetron 4 MG/2 ML SDV IV PRN (13:44)
[2019-03-08] MEDS: cefTRIAXone 1 GM Vial IVPUSH SCH (14:20)
[2019-03-08] MEDS: Azithromycin 500 MG in Sodium Chloride 0.9% 250 ML IV SCH (14:23)
[2019-03-08] MEDS: Warfarin 5 MG Tab PO SCH (14:23)
[2019-03-08] MEDS: IPRATROPIUM BROMIDE NASBOTH SCH (20:10)
[2019-03-08] MEDS: Bacitracin/Neomycin/Polymyxin B Oint 28.4 GM Tube TOP SCH (20:17)
[2019-03-08] MEDS: Fluticasone Propionate Nasal Spray 16 GM Bottle NASBOTH SCH (20:19)
[2019-03-08] MEDS: Mirtazapine 15 MG Tab PO SCH (20:20)
[2019-03-09] MEDS: Loratadine 10 MG Tab PO SCH (07:33)
[2019-03-09] MEDS: traMADol 50 MG Tab PO PRN (07:34)
[2019-03-09] MEDS: Furosemide 40 MG Tab PO SCH (07:34)
[2019-03-09] MEDS: Multivitamin Tab PO SCH (07:35)
[2019-03-09] MEDS: Acetaminophen 325 MG Tab PO PRN ×2 (07:35→19:30)
[2019-03-09] MEDS: IPRATROPIUM BROMIDE NASBOTH SCH ×2 (07:35→19:32)
[2019-03-09] MEDS: Bacitracin/Neomycin/Polymyxin B Oint 28.4 GM Tube TOP SCH ×2 (07:35→19:32)
[2019-03-09] MEDS: COCONUT OIL 1000 MG PO SCH (07:36)
[2019-03-09] MEDS ORDERED: Diltiazem 180 MG Cap.CD PO SCH (08:00)
[2019-03-09] MEDS ORDERED: Diltiazem 120 MG Cap.CD PO ONE (09:09)
[2019-03-09] MEDS: cefTRIAXone 1 GM Vial IVPUSH SCH (12:40)
[2019-03-09] MEDS: Warfarin 2.5 MG Tab PO SCH (12:40)
[2019-03-09] MEDS: Azithromycin 500 MG in Sodium Chloride 0.9% 250 ML IV SCH (14:42)
[2019-03-09] MEDS: Mirtazapine 15 MG Tab PO SCH (19:29)
[2019-03-09] MEDS: Fluticasone Propionate Nasal Spray 16 GM Bottle NASBOTH SCH (19:30)
[2019-03-09] MEDS: Acetaminophen/HYDROcodone 325-5 MG Tab PO PRN (22:41)
[2019-03-10] MEDS: Loratadine 10 MG Tab PO SCH (08:14)
[2019-03-10] MEDS: Diltiazem 120 MG Cap.CD PO SCH (08:14)
[2019-03-10] MEDS: Furosemide 40 MG Tab PO SCH (08:14)
[2019-03-10] MEDS: Multivitamin Tab PO SCH (08:14)
[2019-03-10] MEDS: IPRATROPIUM BROMIDE NASBOTH SCH ×2 (08:15→21:16)
[2019-03-10] MEDS: Bacitracin/Neomycin/Polymyxin B Oint 28.4 GM Tube TOP SCH ×2 (08:15→21:33)
[2019-03-10] MEDS: COCONUT OIL 1000 MG PO SCH (08:15)
[2019-03-10] MEDS: Warfarin 5 MG Tab PO SCH (13:21)
[2019-03-10] MEDS: cefTRIAXone 1 GM Vial IVPUSH SCH (13:21)
[2019-03-10] MEDS: Azithromycin 500 MG in Sodium Chloride 0.9% 250 ML IV SCH (14:47)
[2019-03-10] MEDS: traMADol 50 MG Tab PO PRN (15:03)
[2019-03-10] MEDS: Acetaminophen 325 MG Tab PO PRN (19:04)
[2019-03-10] MEDS: Fluticasone Propionate Nasal Spray 16 GM Bottle NASBOTH SCH (21:15)
[2019-03-10] MEDS: Ibuprofen 200 MG Tab PO PRN (21:16)
[2019-03-10] MEDS: Mirtazapine 15 MG Tab PO SCH (21:16)
[2019-03-11] MEDS: Multivitamin Tab PO SCH (08:05)
[2019-03-11] MEDS: Diltiazem 120 MG Cap.CD PO SCH (08:05)
[2019-03-11] MEDS: Loratadine 10 MG Tab PO SCH (08:06)
[2019-03-11] MEDS: Furosemide 40 MG Tab PO SCH (08:06)
[2019-03-11] MEDS: COCONUT OIL 1000 MG PO SCH (08:07)
[2019-03-11] MEDS: IPRATROPIUM BROMIDE NASBOTH SCH ×2 (08:07→19:41)
[2019-03-11] MEDS: Bacitracin/Neomycin/Polymyxin B Oint 28.4 GM Tube TOP SCH (08:07)
[2019-03-11 08:13] LABS: CHLORIDE,CL 103 mEq/L (98-106); SODIUM,NA 141 mEq/L (136-145)
[2019-03-11] MEDS: Warfarin 5 MG Tab PO SCH (12:05)
--- NOTE | 2019-03-11 12:44 | PCM.PN ---
- General Info Date of Service: 03/11/19 Functional Status: Reports: Pain Controlled, Tolerating Diet, Urinating (swenson) . Denies: Ambulating - Review of Systems General: Reports: Weakness (general) HEENT: Reports: No Symptoms Pulmonary: Reports: Cough. Denies: Shortness of Breath, Sputum Cardiovascular: Reports: No Symptoms Gastrointestinal: Reports: No Symptoms Genitourinary: Reports: No Symptoms Musculoskeletal: Reports: No Symptoms Skin: Reports: No Symptoms Neurological: Reports: Confusion. Denies: Dizziness, Headache, Numbness, Seizure, Syncope, Tingling Psychiatric: Reports: No Symptoms - Patient Data Vitals - Most Recent: Last Vital Signs Temp 98.8 F 03/11/19 07:57 Pulse 89 03/11/19 08:05 Resp 18 03/11/19 07:57 BP 138/84 03/11/19 08:05 Pulse Ox 97 03/11/19 07:57 Weight - Most Recent: 161 lb I&O - Last 24 Hours: Intake & Output 03/10/19 03/11/19 03/11/19 22:59 06:59 14:59 Output Total 750 Balance -750 Lab Results Last 24 Hours: Laboratory Results - last 24 hr 03/11/19 03/11/19 03/11/19 Range/Units 05:00 05:00 05:00 WBC 11.2 H (5.0-10.0) 10^3/uL RBC 4.21 L (4.50-6.00) 10^6/uL Hgb 13.4 L (14.0-18.0) g/dL Hct 40.5 (40.0-54.0) % MCV 96.2 H (82.0-94.0) fL MCH 31.8 (27.0-32.0) pg MCHC 33.1 (33.0-38.0) g/dL RDW Coeff of Brayan 14.2 (11.0-15.0) % Plt Count 242 (150-400) 10^3/uL Neut % (Auto) 80.3 (35-85) % Lymph % (Auto) 6.6 L (10-55) % Moffat % (Auto) 12.2 (0-16) % Eos % (Auto) 0.8 (0-5) % Baso % (Auto) 0.1 (0-3) % Neut # (Auto) 8.99 H (1.80-7.00) 10^3/uL Lymph # (Auto) 0.74 L (1.00-4.80) 10^3/uL Moffat # (Auto) 1.37 H (0.00-0.80) 10^3/uL Eos # (Auto) 0.09 (0.00-0.45) 10^3/uL Baso # (Auto) 0.01 10^3/uL Sodium 141 (136-145) mEq/L Potassium 3.7 (3.5-5.0) mEq/L Chloride 103 (98-106) mEq/L Carbon Dioxide 28 (21-32) mmol/L BUN 24 H (7-18) mg/dL Creatinine 1.0 (0.7-1.3) mg/dL Est Cr Clr Drug Dosing 61.85 mL/min Estimated GFR (MDRD) > 60 (>=60) mL/min Glucose 116 H (75-99) mg/dL Lactic Acid 1.0 (0.4-2.0) mmol/L Calcium 9.5 (8.4-10.1) mg/dL Total Bilirubin 0.7 (0.0-1.0) mg/dL AST 31 (15-37) U/L ALT 30 (12-78) U/L Alkaline Phosphatase 84 (46-116) U/L C-Reactive Protein 8.7 H (0.2-0.8) mg/dL Total Protein 6.7 (6.4-8.2) g/dL Albumin 2.7 L (3.4-5.0) g/dL Sarabjit Results Last 24 Hours: Microbiology 03/10/19 08:14 Aerobic Blood Culture - Preliminary Blood NO GROWTH AFTER 1 DAY Anaerobic Blood Culture - Preliminary NO GROWTH AFTER 1 DAY 03/10/19 08:13 Aerobic Blood Culture - Preliminary Blood NO GROWTH AFTER 1 DAY Anaerobic Blood Culture - Preliminary NO GROWTH AFTER 1 DAY 03/10/19 21:27 Influenza Type A Antigen Screen - Final Nasal, Unspecified NEGATIVE INFLUENZA A VIRUS AG REFERENCE RANGE: NEGATIVE Influenza Type B Antigen Screen - Final NEGATIVE INFLUENZA B VIRUS AG REFERENCE RANGE: NEGATIVE Med Orders - Current: Current Medications Acetaminophen (Tylenol) 650 mg PO Q4H PRN PRN Reason: Pain (Mild 1-3)/fever Last Admin: 03/10/19 19:04 Dose: 650 mg Hydrocodone Bitart/Acetaminophen ([place] 325-5 Mg) 1 tab PO Q6H PRN PRN Reason: Pain Last Admin: 03/09/19 22:41 Dose: 1 tab Diltiazem HCl (Cardizem Cd) 240 mg PO DAILY [facility] Last Admin: 03/11/19 08:05 Dose: 240 mg Fluticasone Propionate (Flonase) 0 gm NASBOTH BEDTIME [facility] Last Admin: 03/10/19 21:15 Dose: 1 spray Furosemide (Lasix) 40 mg PO DAILY [facility] Last Admin: 03/11/19 08:06 Dose: 40 mg Piperacillin Sod/Tazobactam (Sod 4.5 gm/ Sodium Chloride) 100 mls @ 200 mls/hr IV Q6H LUIS E Ibuprofen (Motrin) 600 mg PO Q6H PRN PRN Reason: Pain (mild 1-3) Last Admin: 03/10/19 21:16 Dose: 600 mg Loratadine (Claritin) 10 mg PO DAILY [facility] Last Admin: 03/11/19 08:06 Dose: 10 mg Mirtazapine (Remeron) 15 mg PO BEDTIME [facility] Last Admin: 03/10/19 21:16 Dose: 15 mg Multivitamins/Minerals/Vitamin C (Tab-A-Sheeba) 1 tab PO DAILY [facility] Last Admin: 03/11/19 08:05 Dose: 1 tab Neomycin/Polymyxin/Bacitracin (Triple Antibiotic Oint) 0 gm TOP BID [facility] Last Admin: 03/11/19 08:07 Dose: 1 applic Coconut Oil [Coconut Oil] 1,000 Mg*8own Med 1,000 mg PO DAILY [facility] Last Admin: 03/11/19 08:07 Dose: 1,000 mg Ipratropium [place] [Ipratropium [place] ] 2 SpraysOwn Med* * 2 sprays NASBOTH BID [facility] Last Admin: 03/11/19 08:07 Dose: 2 sprays Non-Formulary Medication (Olopatadine [Patanol 0.1% Ophth Soln]) 1 drop EYEBOTH BID [facility] Non-Formulary Medication (Rosuvastatin [Crestor]) 10 mg PO Q48H [facility] Ondansetron HCl (Zofran) 4 mg IV Q6H PRN PRN Reason: Nausea/Vomiting Tramadol HCl (Ultram) 50 mg PO Q8H PRN PRN Reason: Pain Last Admin: 03/10/19 15:03 Dose: 50 mg Vancomycin HCl (Pharmacy To Dose - Vancomycin) 1 dose .XX ASDIRECTED [facility] Warfarin Sodium (Coumadin) 2.5 mg PO MoWeFr@1200 [facility] Last Admin: 03/09/19 12:40 Dose: 2.5 mg Warfarin Sodium (Coumadin) 5 mg PO SuTuThSa@1200 [facility] Last Admin: 03/11/19 12:05 Dose: 5 mg Discontinued Medications Ceftriaxone Sodium (Rocephin) 1 gm IVPUSH Q24H [facility] Last Admin: 03/10/19 13:21 Dose: 1 gm Diltiazem HCl (Cardizem Cd) 180 mg PO DAILY [facility] Last Admin: 03/09/19 07:34 Dose: 180 mg Diltiazem HCl (Cardizem Cd) 120 mg PO ONETIME ONE Stop: 03/09/19 09:10 Last Admin: 03/09/19 09:58 Dose: 120 mg Azithromycin 500 mg/ Sodium (Chloride) 250 mls @ 250 mls/hr IV Q24H [facility] Last Admin: 03/10/19 14:47 Dose: 250 mls/hr - Exam General: Alert, Cooperative Lungs: Clear to Auscultation, Decreased Breath Sounds (bilateral bases otherwise clear) Cardiovascular: Regular Rate, Regular Rhythm GI/Abdominal Exam: Normal Bowel Sounds, Soft, Non-Tender, No Organomegaly Back Exam: Normal Inspection, Full Range of Motion Extremities: Non-Tender, No Pedal Edema, Normal Capillary Refill Peripheral Pulses: 2+: Radial (L), Radial (R), Posterior Tibial (L), Posterior Tibial (R), Dorsalis Pedis (L), Dorsalis Pedis (R) Skin: Warm, Dry, Other (small scratch wounds BLE caused from [place]. ) Neurological: Normal Speech, Strength Equal Bilateral, Sensation Intact, Other ( No unilateral weaknesses. Significant generalized weakness. Unable to stand without multiple person assist. Near weight. Oriented to person and place. Time says its 1979. ). No: Normal Gait Psy/Mental Status: Alert, Normal Affect, Normal Mood - Problem List Review Problem List Initiated/Reviewed/Updated: Yes - My Orders Last 24 Hours: My Active Orders 03/11/19 09:00 Incentive Spirometry [RT Incentive Spirometry] [RC] Q2HWA 03/11/19 09:50 Head wo Cont [CT] Stat 03/11/19 12:30 Pharmacy to Dose - Vancomycin 1 dose .XX ASDIRECTED Piperacillin/Tazobactam [Zosyn] 4.5 gm Sodium Chloride 0.9% [Normal Saline] 100 ml IV Q6H - Plan Plan:: 03/11/19 1200 This patient is a swing bed patient. Patient was admitted Tuesday for early pneumonia. It was reported by RN that patient has become more generally weak this week, Tuesday morning noticeable that the patient was significantly weaker than before. Reports the patient now is unable to get up from bed, stand, or ambulate. Patient was ambulatory Tuesday upon admit. It is reported the patient has become incontinent of urine this week, more on Tuesday. The patient takes several staff members to get him up in chair. Patient is near weight. The patient has no unilateral weaknesses. He is alert, oriented to self and place. I ordered a head ct, discussed with radiologist and it negative for acute findings. CXR ordered shows worsening bilateral base infiltrates. Patient has had fever, his wbc has elevated. Patient is currently on Zithromax and Rocephin. I called and spoke to Dr. Negron at [facility] for consult. He recommends stopping Zithromax and Rocephin and starting Vanc and Zosyn. He reports can always back down to Levaquin later if improvement. Will continue with swing bed admit here and change abx. Will have his PCP follow him tomorrow.
[2019-03-11] MEDS: Piperacillin/Tazobactam 4.5 GM in Sodium Chloride 0.9% 100 ML IV SCH ×2 (13:07→19:47)
[2019-03-11] MEDS ORDERED: Vancomycin 1 GM SDV ONE (13:48)
[2019-03-11] MEDS ORDERED: Vancomycin 2 GM in Sodium Chloride 0.9% 500 ML IV ONE (14:00)
[2019-03-11] MEDS: Acetaminophen 325 MG Tab PO PRN ×2 (15:15→19:46)
[2019-03-11] MEDS: Ibuprofen 200 MG Tab PO PRN (15:46)
[2019-03-11] MEDS: Albuterol/Ipratropium 3.0-0.5 MG/3 ML Neb Soln NEB SCH ×2 (15:47→19:39)
[2019-03-11] MEDS ORDERED: Sodium Chloride 0.9% 1,000 ML IV ONE (16:49)
[2019-03-11] MEDS ORDERED: Sodium Chloride 0.9% 1,000 ML IV SCH (17:00)
[2019-03-11] MEDS: Mirtazapine 15 MG Tab PO SCH (19:40)
[2019-03-11] MEDS: Fluticasone Propionate Nasal Spray 16 GM Bottle NASBOTH SCH (19:40)
[2019-03-12] MEDS: Piperacillin/Tazobactam 4.5 GM in Sodium Chloride 0.9% 100 ML IV SCH ×4 (00:44→18:09)
[2019-03-12] MEDS: Bacitracin/Neomycin/Polymyxin B Oint 28.4 GM Tube TOP SCH ×3 (00:49→19:37)
[2019-03-12 08:07] LABS: CHLORIDE,CL 105 mEq/L (98-106); SODIUM,NA 142 mEq/L (136-145)
[2019-03-12] MEDS: Multivitamin Tab PO SCH (08:31)
[2019-03-12] MEDS: Albuterol/Ipratropium 3.0-0.5 MG/3 ML Neb Soln NEB SCH ×3 (08:31→19:33)
[2019-03-12] MEDS: Loratadine 10 MG Tab PO SCH (08:32)
[2019-03-12] MEDS: Furosemide 40 MG Tab PO SCH (08:32)
[2019-03-12] MEDS: Diltiazem 120 MG Cap.CD PO SCH (08:32)
[2019-03-12] MEDS: COCONUT OIL 1000 MG PO SCH (08:34)
[2019-03-12] MEDS: IPRATROPIUM BROMIDE NASBOTH SCH ×2 (08:34→19:34)
[2019-03-12] MEDS: Warfarin 2.5 MG Tab PO SCH (11:47)
[2019-03-12] MEDS: traMADol 50 MG Tab PO PRN (11:49)
[2019-03-12] MEDS: Acetaminophen 325 MG Tab PO PRN ×2 (13:06→19:35)
[2019-03-12] MEDS: Non-Formulary Medication 1 Each (Olopatadine [Patanol 0.1% Ophth Soln] 1 DROP) EYEBOTH SCH ×4 (13:30→13:33)
[2019-03-12] MEDS: Non-Formulary Medication 1 Each (Rosuvastatin [Crestor] 10 MG) PO SCH ×2 (13:31→13:34)
[2019-03-12] MEDS: Mirtazapine 15 MG Tab PO SCH (19:34)
[2019-03-12] MEDS: Fluticasone Propionate Nasal Spray 16 GM Bottle NASBOTH SCH (19:34)
[2019-03-12] MEDS: Acetaminophen/HYDROcodone 325-5 MG Tab PO PRN (23:11)
[2019-03-13] MEDS: Piperacillin/Tazobactam 4.5 GM in Sodium Chloride 0.9% 100 ML IV SCH ×4 (00:45→18:23)
[2019-03-13 07:25] LABS: CHLORIDE,CL 105 mEq/L (98-106); SODIUM,NA 141 mEq/L (136-145)
[2019-03-13] MEDS: Diltiazem 120 MG Cap.CD PO SCH (07:25)
[2019-03-13] MEDS: Albuterol/Ipratropium 3.0-0.5 MG/3 ML Neb Soln NEB SCH ×3 (07:25→19:23)
[2019-03-13] MEDS: Multivitamin Tab PO SCH (07:25)
[2019-03-13] MEDS: Loratadine 10 MG Tab PO SCH (07:25)
[2019-03-13] MEDS: Furosemide 40 MG Tab PO SCH (07:25)
[2019-03-13] MEDS: Bacitracin/Neomycin/Polymyxin B Oint 28.4 GM Tube TOP SCH ×2 (07:26→19:24)
[2019-03-13] MEDS: COCONUT OIL 1000 MG PO SCH (07:26)
[2019-03-13] MEDS: IPRATROPIUM BROMIDE NASBOTH SCH ×2 (07:27→19:27)
[2019-03-13] MEDS: Potassium Chloride 10 MEQ Tab.ER PO SCH (09:14)
[2019-03-13] MEDS: Warfarin 5 MG Tab PO SCH (12:20)
[2019-03-13] MEDS: Polyvinyl Alcohol 1.4% Ophth Soln 15 ML Bottle EYEBOTH SCH (19:23)
[2019-03-13] MEDS: Mirtazapine 15 MG Tab PO SCH (19:23)
[2019-03-13] MEDS: Acetaminophen 325 MG Tab PO PRN (19:24)
[2019-03-13] MEDS: Fluticasone Propionate Nasal Spray 16 GM Bottle NASBOTH SCH (19:27)
[2019-03-14] MEDS: Piperacillin/Tazobactam 4.5 GM in Sodium Chloride 0.9% 100 ML IV SCH ×4 (00:47→19:59)
[2019-03-14] MEDS: Acetaminophen/HYDROcodone 325-5 MG Tab PO PRN (06:50)
[2019-03-14 07:24] LABS: CHLORIDE,CL 104 mEq/L (98-106); SODIUM,NA 139 mEq/L (136-145)
[2019-03-14] MEDS: Albuterol/Ipratropium 3.0-0.5 MG/3 ML Neb Soln NEB SCH ×3 (07:49→19:59)
[2019-03-14] MEDS: Furosemide 40 MG Tab PO SCH (07:49)
[2019-03-14] MEDS: Diltiazem 120 MG Cap.CD PO SCH (07:49)
[2019-03-14] MEDS: Potassium Chloride 10 MEQ Tab.ER PO SCH (07:49)
[2019-03-14] MEDS: Loratadine 10 MG Tab PO SCH (07:49)
[2019-03-14] MEDS: Multivitamin Tab PO SCH (07:49)
[2019-03-14] MEDS: COCONUT OIL 1000 MG PO SCH (07:50)
[2019-03-14] MEDS: IPRATROPIUM BROMIDE NASBOTH SCH ×2 (07:51→19:59)
[2019-03-14] MEDS: Polyvinyl Alcohol 1.4% Ophth Soln 15 ML Bottle EYEBOTH SCH ×2 (07:51→20:02)
[2019-03-14] MEDS: Bacitracin/Neomycin/Polymyxin B Oint 28.4 GM Tube TOP SCH ×2 (08:39→20:00)
[2019-03-14] MEDS: Warfarin 2.5 MG Tab PO SCH (12:10)
[2019-03-14] MEDS: traMADol 50 MG Tab PO PRN (16:38)
[2019-03-14] MEDS: Acetaminophen 325 MG Tab PO PRN (18:07)
[2019-03-14] MEDS: Fluticasone Propionate Nasal Spray 16 GM Bottle NASBOTH SCH (20:00)
[2019-03-14] MEDS: Mirtazapine 15 MG Tab PO SCH (20:00)
[2019-03-15] MEDS: Piperacillin/Tazobactam 4.5 GM in Sodium Chloride 0.9% 100 ML IV SCH ×4 (00:44→18:51)
[2019-03-15] MEDS: Albuterol/Ipratropium 3.0-0.5 MG/3 ML Neb Soln NEB SCH ×3 (07:46→19:41)
[2019-03-15] MEDS: Diltiazem 120 MG Cap.CD PO SCH (07:46)
[2019-03-15] MEDS: Multivitamin Tab PO SCH (07:48)
[2019-03-15] MEDS: COCONUT OIL 1000 MG PO SCH (07:48)
[2019-03-15] MEDS: Potassium Chloride 10 MEQ Tab.ER PO SCH (07:48)
[2019-03-15] MEDS: Loratadine 10 MG Tab PO SCH (07:48)
[2019-03-15] MEDS: Furosemide 40 MG Tab PO SCH (07:48)
[2019-03-15] MEDS: IPRATROPIUM BROMIDE NASBOTH SCH ×2 (07:49→19:41)
[2019-03-15] MEDS: Bacitracin/Neomycin/Polymyxin B Oint 28.4 GM Tube TOP SCH ×2 (07:49→19:41)
[2019-03-15] MEDS: Polyvinyl Alcohol 1.4% Ophth Soln 15 ML Bottle EYEBOTH SCH ×2 (07:49→19:40)
[2019-03-15] MEDS: Acetaminophen/HYDROcodone 325-5 MG Tab PO PRN (07:50)
[2019-03-15] MEDS: Warfarin 5 MG Tab PO SCH (12:14)
[2019-03-15] MEDS: Fluticasone Propionate Nasal Spray 16 GM Bottle NASBOTH SCH (19:41)
[2019-03-15] MEDS: Mirtazapine 15 MG Tab PO SCH (19:41)
[2019-03-16] MEDS: Piperacillin/Tazobactam 4.5 GM in Sodium Chloride 0.9% 100 ML IV SCH ×4 (00:34→18:35)
[2019-03-16] MEDS: Albuterol/Ipratropium 3.0-0.5 MG/3 ML Neb Soln NEB SCH ×3 (07:51→20:01)
[2019-03-16] MEDS: Potassium Chloride 10 MEQ Tab.ER PO SCH (07:52)
[2019-03-16] MEDS: Furosemide 40 MG Tab PO SCH (07:52)
[2019-03-16] MEDS: COCONUT OIL 1000 MG PO SCH (07:52)
[2019-03-16] MEDS: Multivitamin Tab PO SCH (07:52)
[2019-03-16] MEDS: Diltiazem 120 MG Cap.CD PO SCH (07:52)
[2019-03-16] MEDS: Loratadine 10 MG Tab PO SCH (07:52)
[2019-03-16] MEDS: IPRATROPIUM BROMIDE NASBOTH SCH ×2 (07:54→20:03)
[2019-03-16] MEDS: Polyvinyl Alcohol 1.4% Ophth Soln 15 ML Bottle EYEBOTH SCH ×2 (07:54→20:02)
[2019-03-16] MEDS: Bacitracin/Neomycin/Polymyxin B Oint 28.4 GM Tube TOP SCH ×2 (07:55→20:01)
[2019-03-16] MEDS: Warfarin 2.5 MG Tab PO SCH (12:21)
[2019-03-16] MEDS: Mirtazapine 15 MG Tab PO SCH (20:01)
[2019-03-16] MEDS: Fluticasone Propionate Nasal Spray 16 GM Bottle NASBOTH SCH (20:02)
[2019-03-16] MEDS: Acetaminophen/HYDROcodone 325-5 MG Tab PO PRN (20:06)
[2019-03-17] MEDS: Piperacillin/Tazobactam 4.5 GM in Sodium Chloride 0.9% 100 ML IV SCH ×4 (00:48→18:29)
[2019-03-17] MEDS: Bacitracin/Neomycin/Polymyxin B Oint 28.4 GM Tube TOP SCH ×2 (07:58→19:34)
[2019-03-17] MEDS: Potassium Chloride 10 MEQ Tab.ER PO SCH (07:58)
[2019-03-17] MEDS: Loratadine 10 MG Tab PO SCH (07:58)
[2019-03-17] MEDS: Albuterol/Ipratropium 3.0-0.5 MG/3 ML Neb Soln NEB SCH ×3 (07:58→19:35)
[2019-03-17] MEDS: Furosemide 40 MG Tab PO SCH (07:58)
[2019-03-17] MEDS: Multivitamin Tab PO SCH (07:58)
[2019-03-17] MEDS: COCONUT OIL 1000 MG PO SCH (07:59)
[2019-03-17] MEDS: Diltiazem 120 MG Cap.CD PO SCH (07:59)
[2019-03-17] MEDS: IPRATROPIUM BROMIDE NASBOTH SCH ×2 (07:59→19:32)
[2019-03-17] MEDS: Polyvinyl Alcohol 1.4% Ophth Soln 15 ML Bottle EYEBOTH SCH ×2 (08:00→19:32)
[2019-03-17] MEDS: Warfarin 5 MG Tab PO SCH (13:29)
[2019-03-17] MEDS: Fluticasone Propionate Nasal Spray 16 GM Bottle NASBOTH SCH (19:32)
[2019-03-17] MEDS: Acetaminophen 325 MG Tab PO PRN (19:34)
[2019-03-17] MEDS: Mirtazapine 15 MG Tab PO SCH (19:34)
[2019-03-18] MEDS: Piperacillin/Tazobactam 4.5 GM in Sodium Chloride 0.9% 100 ML IV SCH ×4 (00:35→18:34)
[2019-03-18] MEDS: Polyvinyl Alcohol 1.4% Ophth Soln 15 ML Bottle EYEBOTH SCH ×2 (07:32→19:46)
[2019-03-18] MEDS: Albuterol/Ipratropium 3.0-0.5 MG/3 ML Neb Soln NEB SCH ×3 (07:33→19:46)
[2019-03-18] MEDS: Diltiazem 120 MG Cap.CD PO SCH (07:34)
[2019-03-18] MEDS: COCONUT OIL 1000 MG PO SCH (07:35)
[2019-03-18] MEDS: Loratadine 10 MG Tab PO SCH (07:35)
[2019-03-18] MEDS: IPRATROPIUM BROMIDE NASBOTH SCH ×2 (07:36→19:46)
[2019-03-18] MEDS: Potassium Chloride 10 MEQ Tab.ER PO SCH (07:36)
[2019-03-18] MEDS: Furosemide 40 MG Tab PO SCH (07:36)
[2019-03-18] MEDS: Bacitracin/Neomycin/Polymyxin B Oint 28.4 GM Tube TOP SCH ×2 (07:37→19:47)
[2019-03-18] MEDS: Multivitamin Tab PO SCH (07:37)
[2019-03-18] MEDS: Acetaminophen 325 MG Tab PO PRN (07:40)
[2019-03-18] MEDS: Warfarin 5 MG Tab PO SCH (11:54)
[2019-03-18] MEDS ORDERED: Polyethylene Glycol 3350 Powder 17 GM Packet PO PRN (13:47)
[2019-03-18] MEDS: Fluticasone Propionate Nasal Spray 16 GM Bottle NASBOTH SCH (19:46)
[2019-03-18] MEDS: Mirtazapine 15 MG Tab PO SCH (19:46)
[2019-03-18] MEDS: Acetaminophen/HYDROcodone 325-5 MG Tab PO PRN (21:15)
[2019-03-19] MEDS: Piperacillin/Tazobactam 4.5 GM in Sodium Chloride 0.9% 100 ML IV SCH ×2 (01:19→06:30)
[2019-03-19] MEDS: Albuterol/Ipratropium 3.0-0.5 MG/3 ML Neb Soln NEB SCH ×3 (07:52→19:24)
[2019-03-19] MEDS: Loratadine 10 MG Tab PO SCH (07:53)
[2019-03-19] MEDS: Multivitamin Tab PO SCH (07:53)
[2019-03-19] MEDS: Diltiazem 120 MG Cap.CD PO SCH (07:53)
[2019-03-19] MEDS: Potassium Chloride 10 MEQ Tab.ER PO SCH (07:54)
[2019-03-19] MEDS: IPRATROPIUM BROMIDE NASBOTH SCH ×2 (07:54→19:24)
[2019-03-19] MEDS: Furosemide 40 MG Tab PO SCH (07:54)
[2019-03-19] MEDS: Bacitracin/Neomycin/Polymyxin B Oint 28.4 GM Tube TOP SCH ×2 (07:55→19:23)
[2019-03-19] MEDS: Polyvinyl Alcohol 1.4% Ophth Soln 15 ML Bottle EYEBOTH SCH ×2 (07:55→19:24)
[2019-03-19] MEDS: COCONUT OIL 1000 MG PO SCH (07:55)
[2019-03-19] MEDS: Warfarin 2.5 MG Tab PO SCH (12:07)
[2019-03-19] MEDS: Acetaminophen/HYDROcodone 325-5 MG Tab PO PRN (12:10)
[2019-03-19] MEDS: Mirtazapine 15 MG Tab PO SCH (19:23)
[2019-03-19] MEDS: Fluticasone Propionate Nasal Spray 16 GM Bottle NASBOTH SCH (19:24)
[2019-03-20 07:31] VITALS: BP 113/79; PULSE 80
[2019-03-20] MEDS: Albuterol/Ipratropium 3.0-0.5 MG/3 ML Neb Soln NEB SCH (07:43)
[2019-03-20] MEDS: Potassium Chloride 10 MEQ Tab.ER PO SCH (07:45)
[2019-03-20] MEDS: Multivitamin Tab PO SCH (07:45)
[2019-03-20] MEDS: Loratadine 10 MG Tab PO SCH (07:45)
[2019-03-20] MEDS: Furosemide 40 MG Tab PO SCH (07:46)
[2019-03-20] MEDS: Diltiazem 120 MG Cap.CD PO SCH (07:46)
[2019-03-20] MEDS: COCONUT OIL 1000 MG PO SCH (07:47)
[2019-03-20] MEDS: IPRATROPIUM BROMIDE NASBOTH SCH (07:51)
[2019-03-20] MEDS: Polyvinyl Alcohol 1.4% Ophth Soln 15 ML Bottle EYEBOTH SCH (07:52)
[2019-03-20] MEDS: Bacitracin/Neomycin/Polymyxin B Oint 28.4 GM Tube TOP SCH (08:52)
--- NOTE | 2019-03-20 08:54 | PCM.DCSUM1 ---
Discharge Summary - Hospital Course Free Text/Narrative:: Andi is a 78 year old male that presented to the ER initially with complaints of dizziness off an on for the last month. States in the past, felt it was related to his heart. Dizziness is now constant , worse with position changes or with walking and when laying down. Intermittent chest pain over the days prior. Short of breath at times. Nonproductive cough. No fevers. Does have chronic issues with pedal edema, felt legs were more swollen than his norm. History of noncompliance with his Lasix use. Has had intermittent falls , abrasions on his legs from "landing in a [place]". Chest xray showed left lower lobe infiltrate. Telemetry atrial flutter. Labs unremarkable. WBC 5.9, hemoglobin 12.9. INR 2.38. electrolytes normal. ProBNP 3681. Troponin negative. CRP negative. Admitted and started on IV Zithromax and Rocephin. Patient had a change in status 2 days after admission, lungs sounded more congested. CT scan of chest and head were done. Left lobe pneumonia noted, no acute intracranial changes. Switched to Zosyn and Vancomycin. Continued to be weak, incontinent and required 2 people for transfers. Transferred to swing bed for ongoing IV antibiotics and physical therapy. Diagnosis: Stroke: No Modified Anson Scale: No Symptoms at All Modified Anson Scale Score: 0 - Discharge Data Discharge Date: 03/20/19 Discharge Disposition: Home, Home Health Agency 06 Condition: Fair - Referral to Home Health Date of Face to Face Encounter: 03/20/19 Reason for Homebound Status: Patient unable to drive due to weakness, unsteady gait, dizziness with visual changes at times. Primary Care Physician: Oumar Joseph MD Skilled Need: Nursing to monitor heart rate due to atrial fib with rapid response at times, blood pressure, pain level. Physical Therapy for strengthening. Occupational therapy for ADLs. - Patient Summary/Data Complications: none Consults: Consultations 03/08/19 13:44 Consult to Case Management/Statue Carver [CONS] Routine Consult to Physical Therapy [PT Evaluation and Treatment] [CONS] Routine Hospital Course: Patient has improved. Is ambulating with walker per self. Strength has improved. Less cough. No shortness of breath. Does still complain of dizziness and shoulder pain at times. Gait is much more steady however. Wounds on legs are healing well. Did have issues with antibiotic induced thrombocytopenia, platelets had dropped to 37. Stopped Vancomycin and have responded well, platelets yesterday back up to 126. WBC normal. Lung sounds are clear. Telemetry continues to show variable heart rate, 80s to 120s at times. Cardizem dose was increased to 240 mg. Digoxin on hold yet. Asymptomatic, no chest pain. Patient continues to be incontinent at night. States wore a pad at home for same reason. food and nutrition services assistant consult has been held with family in regards to home safety, need for snf due to unsteady gait, frequent falls, incontinence. Family against this due to financial reasons. Son does live with them and will assist in caring for patient. Discharge home on home health. - Patient Instructions Diet: Usual Diet as Tolerated Activity: As Tolerated - Discharge Plan *PRESCRIPTION DRUG MONITORING PROGRAM REVIEWED*: No *COPY OF PRESCRIPTION DRUG MONITORING REPORT IN PATIENT FLORA: No Prescriptions/Med Rec: dilTIAZem HCl [Diltiazem ER] 240 mg PO DAILY #30 cap.er.deg Potassium Chloride [Klor-Con 10] 10 meq PO DAILY #30 tab.er Home Medications: Home Meds Hydrocodone/Acetaminophen [Hydrocodon-Acetaminophen 5-500] 1 each PO Q6H PRN [History] Ipratropium [place] 2 sprays NASBOTH BID 05/31/13 [History] Loratadine [Claritin] 10 mg PO DAILY 05/31/13 [History] Multivitamin [Multi-Vitamin Daily] 1 each PO DAILY 05/31/13 [History] Coconut Oil 1,000 mg PO DAILY 10/20/17 [History] Fluticasone Propionate [Flonase Allergy Relief] 2 sprays NASBOTH BEDTIME [History] Mirtazapine 15 mg PO BEDTIME 10/20/17 [History] Acetaminophen [Tylenol Extra Strength] 500 - 1,000 mg PO Q6H PRN 10/03/18 [ History] Furosemide 40 mg PO DAILY 03/05/19 [History] Olopatadine [Patanol 0.1% Ophth Soln] 1 drop EYEBOTH BID 03/05/19 [History] Warfarin [Coumadin] 2.5 mg PO ASDIRECTED 03/05/19 [History] Warfarin [Coumadin] 5 mg PO ASDIRECTED 03/05/19 [History] Olopatadine HCl 1 drop EYEBOTH BID PRN 03/13/19 [History] Potassium Chloride [Klor-Con 10] 10 meq PO DAILY #30 tab.er 03/20/19 [Rx] dilTIAZem HCl [Diltiazem ER] 240 mg PO DAILY #30 cap.er.deg 03/20/19 [Rx] Referrals: Oumar Joseph MD [Primary Care Provider] - (Follow up with Dr. Joseph in 10 days. Labs prior to visit) - Discharge Summary/Plan Comment DC Time >30 min.: Yes Discharge Summary/Plan Comment: Discharge home. Scheduled knee injection at clinic after patient discharge prior to going home. Time with patient 15 minutes Time for orders 10 minutes Time for documentation 15 minutes - General Info Date of Service: 03/20/19 Admission Dx/Problem (Free Text: Dizziness Functional Status: Reports: Pain Controlled, Tolerating Diet, Ambulating - Review of Systems General: Reports: Weakness, Fatigue HEENT: Reports: Rhinitis, Other (has eye drainage/red lids chronically) Pulmonary: Denies: Shortness of Breath, Cough Cardiovascular: Reports: Edema. Denies: Chest Pain, Lightheadedness Gastrointestinal: Denies: Abdominal Pain, Nausea, Vomiting Genitourinary: Reports: Incontinence Musculoskeletal: Reports: Shoulder Pain Skin: Reports: Other (abrasions on legs) Neurological: Reports: Dizziness, Weakness - Patient Data Vitals - Most Recent: Last Vital Signs Temp 98.3 F 03/20/19 07:30 Pulse 80 03/20/19 07:46 Resp 18 03/20/19 07:30 BP 113/79 03/20/19 07:46 Pulse Ox 98 03/20/19 07:30 Weight - Most Recent: 173 lb 8 oz Med Orders - Current: Current Medications Acetaminophen (Tylenol) 650 mg PO Q4H PRN PRN Reason: Pain (Mild 1-3)/fever Last Admin: 03/18/19 07:40 Dose: 650 mg Hydrocodone Bitart/Acetaminophen ([place] 325-5 Mg) 1 tab PO Q6H PRN PRN Reason: Pain Last Admin: 03/19/19 12:10 Dose: 1 tab Albuterol/Ipratropium (Duoneb 3.0-0.5 Mg/3 Ml) 3 ml NEB TIDRT LUIS E Last Admin: 03/20/19 07:43 Dose: 3 ml Artificial Tears (Liquitears 1.4% Ophth Soln) 0 ml EYEBOTH BID [facility] Last Admin: 03/20/19 07:52 Dose: 1 drop Diltiazem HCl (Cardizem Cd) 240 mg PO DAILY [facility] Last Admin: 03/20/19 07:46 Dose: 240 mg Fluticasone Propionate (Flonase) 0 gm NASBOTH BEDTIME [facility] Last Admin: 03/19/19 19:24 Dose: 2 spray Furosemide (Lasix) 40 mg PO DAILY [facility] Last Admin: 03/20/19 07:46 Dose: 40 mg Ibuprofen (Motrin) 600 mg PO Q6H PRN PRN Reason: Pain (mild 1-3) Last Admin: 03/11/19 15:46 Dose: 600 mg Loratadine (Claritin) 10 mg PO DAILY [facility] Last Admin: 03/20/19 07:45 Dose: 10 mg Mirtazapine (Remeron) 15 mg PO BEDTIME [facility] Last Admin: 03/19/19 19:23 Dose: 15 mg Multivitamins/Minerals/Vitamin C (Tab-A-Sheeba) 1 tab PO DAILY [facility] Last Admin: 03/20/19 07:45 Dose: 1 tab Neomycin/Polymyxin/Bacitracin (Triple Antibiotic Oint) 0 gm TOP BID [facility] Last Admin: 03/19/19 19:23 Dose: 1 applic Coconut Oil [Coconut Oil] 1,000 Mg*8own Med 1,000 mg PO DAILY [facility] Last Admin: 03/20/19 07:47 Dose: 1,000 mg Ipratropium [place] [Ipratropium [place] ] 2 SpraysOwn Med* * 2 sprays NASBOTH BID [facility] Last Admin: 03/20/19 07:51 Dose: 2 sprays Ondansetron HCl (Zofran) 4 mg IV Q6H PRN PRN Reason: Nausea/Vomiting Polyethylene Glycol (Miralax) 17 gm PO DAILY PRN PRN Reason: Constipation Potassium Chloride (Klor-Con 10) 10 meq PO DAILY [facility] Last Admin: 03/20/19 07:45 Dose: 10 meq Tramadol HCl (Ultram) 50 mg PO Q8H PRN PRN Reason: Pain Last Admin: 03/14/19 16:38 Dose: 50 mg Warfarin Sodium (Coumadin) 2.5 mg PO MoWeFr@1200 [facility] Last Admin: 03/19/19 12:07 Dose: 2.5 mg Warfarin Sodium (Coumadin) 5 mg PO SuTuThSa@1200 [facility] Last Admin: 03/18/19 11:54 Dose: 5 mg Discontinued Medications Ceftriaxone Sodium (Rocephin) 1 gm IVPUSH Q24H [facility] Last Admin: 03/10/19 13:21 Dose: 1 gm Diltiazem HCl (Cardizem Cd) 180 mg PO DAILY [facility] Last Admin: 03/09/19 07:34 Dose: 180 mg Diltiazem HCl (Cardizem Cd) 120 mg PO ONETIME ONE Stop: 03/09/19 09:10 Last Admin: 03/09/19 09:58 Dose: 120 mg Azithromycin 500 mg/ Sodium (Chloride) 250 mls @ 250 mls/hr IV Q24H [facility] Last Admin: 03/10/19 14:47 Dose: 250 mls/hr Piperacillin Sod/Tazobactam (Sod 4.5 gm/ Sodium Chloride) 100 mls @ 200 mls/hr IV Q6H [facility] Last Admin: 03/19/19 06:30 Dose: 200 mls/hr Vancomycin HCl 2 gm/ Sodium (Chloride) 500 mls @ 250 mls/hr IV ONETIME ONE Stop: 03/11/19 15:59 Last Admin: 03/11/19 13:45 Dose: 250 mls/hr Vancomycin HCl 1 gm/ Sodium (Chloride) 250 mls @ 167 mls/hr IV Q12H [facility] Last Admin: 03/16/19 01:48 Dose: 167 mls/hr Sodium Chloride (Normal Saline) 1,000 mls @ 1,000 mls/hr IV .BOLUS ONE Stop: 03/11/19 17:48 Last Infusion: 03/11/19 18:41 Dose: Infused Sodium Chloride (Normal Saline) 1,000 mls @ 50 mls/hr IV ASDIRECTED [facility] Stop: 03/12/19 09:00 Last Admin: 03/12/19 01:31 Dose: 50 mls/hr Non-Formulary Medication (Olopatadine [Patanol 0.1% Oph Soln]) 1 drop EYEBOTH BID [facility] Last Admin: 03/12/19 13:33 Dose: Not Given Non-Formulary Medication (Rosuvastatin [Crestor]) 10 mg PO Q48H [facility] Last Admin: 03/12/19 13:34 Dose: Not Given Vancomycin HCl (Pharmacy To Dose - Vancomycin) 1 dose .XX ASDIRECTED [facility] Vancomycin HCl (Vancomycin) Confirm Administered Dose 1 gm .ROUTE .STK-MED ONE Stop: 03/11/19 13:49 Last Admin: 03/11/19 14:40 Dose: Not Given - Exam General: Reports: Alert, Oriented HEENT: Reports: Mucous Membr. Moist/[place] Neck: Reports: Supple Lungs: Reports: Clear to Auscultation, Normal Respiratory Effort Cardiovascular: Reports: Irregular Rhythm GI/Abdominal Exam: Normal Bowel Sounds, Soft, Non-Tender Extremities: Normal Inspection, Pedal Edema (1+) Skin: Reports: Warm, Dry Wound/Incisions: Reports: Healing Well Neurological: Reports: No New Focal Deficit
== END 2019-03-20 10:55 | disposition home health service (06) | DRG 193 ==
LOC: CC.MS 09:16 → UNDOADMIN 09:40
PROVIDERS: ADMIT Family Medicine; ATTEND Family Medicine
DX: J18.1 Lobar pneumonia, unspecified organism (principal); I50.23 Acute on chronic systolic (congestive) heart failure; I48.3 Typical atrial flutter; R53.1 Weakness; D69.6 Thrombocytopenia, unspecified; Z79.01 Long term (current) use of anticoagulants; Z79.899 Other long term (current) drug therapy
CPT/HCPCS: 36415; 51702; 70450; 71045; 80048; 80053; 80162; 80202; 81001; 81003; 83605; 83735; 83880; 85025; 85610; 86140; 87040; 87804; 94640; 97110-GP; 97140-GP; 97530-GP; A9270-GY; J0456; J0696; J2543; J3370; J7030; J7040; J7050; J7620-GY

== ENCOUNTER 2019-04-05 13:25 | Inpatient (IN) | payer MEDICARE, BC ==
[2019-04-05] MEDS ORDERED: Sodium Chloride 0.9% 10 ML Syringe FLUSH PRN (13:59)
[2019-04-05] MEDS ORDERED: Furosemide 40 MG/4 ML VIAL IVPUSH ONE (14:10)
[2019-04-05] MEDS ORDERED: Digoxin 500 MCG/2 ML Amp IVPUSH ONE (14:11)
--- NOTE | 2019-04-05 18:48 | PCM.HP.2 ---
H&P History of Present Illness - General Date of Service: 04/05/19 Admit Problem/Dx: Admission Diagnosis/Problem Admission Diagnosis/Problem Atrial fibrillation Source of Information: Patient, Old Records History Limitations: Reports: No Limitations - History of Present Illness Initial Comments - Free Text/Narative: Pt was seen today by Dr. Colby and was tachycardic. He has been having dizzy spells since September on and off. He is being admitted today for rate control and started on Digoxin. Plan is to possibly do ablation in the future. Dr. Colby's office will call tomorrow with possible date and then coumadin will need to be held. He denies having any chest pain or SOB at this time. He does admit to edema that improves in the morning with legs elevated. Onset of Symptoms: Reports: Gradual Duration of Symptoms: Reports: Chronic Location: Reports: Chest - Related Data Allergies/Adverse Reactions: Allergies Allergy/AdvReac Type Severity Reaction Status Date / Time atorvastatin calcium Allergy Muscle Verified 04/05/19 14:27 [From Lipitor] Aches Home Medications: Home Meds Hydrocodone/Acetaminophen [Hydrocodon-Acetaminophen 5-500] 1 each PO Q6H PRN [History] Ipratropium [place] 2 sprays NASBOTH BID 05/31/13 [History] Loratadine [Claritin] 10 mg PO DAILY 05/31/13 [History] Multivitamin [Multi-Vitamin Daily] 1 each PO DAILY 05/31/13 [History] Coconut Oil 1,000 mg PO DAILY 10/20/17 [History] Fluticasone Propionate [Flonase Allergy Relief] 2 sprays NASBOTH BEDTIME [History] Mirtazapine 15 mg PO BEDTIME 10/20/17 [History] Acetaminophen [Tylenol Extra Strength] 500 - 1,000 mg PO Q6H PRN 10/03/18 [ History] Furosemide 40 mg PO DAILY 03/05/19 [History] Olopatadine [Patanol 0.1% Ophth Soln] 1 drop EYEBOTH BID 03/05/19 [History] Warfarin [Coumadin] 2.5 mg PO ASDIRECTED 03/05/19 [History] Warfarin [Coumadin] 5 mg PO ASDIRECTED 03/05/19 [History] Olopatadine HCl 1 drop EYEBOTH BID PRN 03/13/19 [History] Potassium Chloride [Klor-Con 10] 10 meq PO DAILY #30 tab.er 03/20/19 [Rx] dilTIAZem HCl [Diltiazem ER] 240 mg PO DAILY #30 cap.er.deg 03/20/19 [Rx] Past Medical History HEENT History: Reports: Impaired Vision Cardiovascular History: Reports: Heart Failure, High Cholesterol, Hypertension, SOB on Exertion Musculoskeletal History: Reports: Arthritis, Osteoarthritis - Past Surgical History Cardiovascular Surgical History: Reports: Coronary Artery Bypass GI Surgical History: Reports: Appendectomy, Cholecystectomy Musculoskeletal Surgical History: Reports: Arthroscopic Knee Social & Family History - Family History Family Medical History: Noncontributory - Caffeine Use Caffeine Use: Reports: Coffee - Living Situation & Occupation Living situation: Reports: , with Spouse Occupation: Retired H&P Review of Systems - Review of Systems: Review Of Systems: See Below General: Denies: Fever, Chills HEENT: Reports: Glasses Pulmonary: Reports: Shortness of Breath. Denies: Cough Cardiovascular: Reports: Edema, Lightheadedness. Denies: Chest Pain Gastrointestinal: Reports: No Symptoms Musculoskeletal: Reports: Shoulder Pain (states that he has plans for the right shoulder to be replaced in the future due to the chronic pain that he has.) Skin: Reports: No Symptoms Psychiatric: Reports: No Symptoms Neurological: Reports: Dizziness (intermittently.) Exam - Exam Exam: See Below - Vital Signs Vital Signs: Last Vital Signs Temp 97.3 F 04/05/19 13:59 Pulse 90 04/05/19 15:07 Resp 18 04/05/19 13:59 BP 96/71 04/05/19 13:59 Pulse Ox Weight: 155 lb 12.8 oz - Exam General: Alert, Oriented HEENT: EACs Clear Neck: Supple, Trachea Midline Lungs: Normal Respiratory Effort, Rales (bases only) Cardiovascular: Irregular Rhythm GI/Abdominal Exam: Normal Bowel Sounds, Soft, Non-Tender, No Organomegaly Back Exam: Normal Inspection Extremities: Normal Inspection, Normal Capillary Refill, Pedal Edema (1+ to both lower legs bilaterally.) Skin: Warm, Dry Neurological: Cranial Nerves Intact Neuro Extensive - Mental Status: Alert, Oriented x3, Normal Mood/Affect Psychiatric: Alert, Normal Affect - Patient Data Lab Results Last 24 hrs: Laboratory Results - last 24 hr 04/05/19 04/05/19 04/05/19 Range/Units 14:20 14:20 14:20 WBC 7.0 (5.0-10.0) 10^3/uL RBC 4.14 L (4.50-6.00) 10^6/uL Hgb 13.2 L (14.0-18.0) g/dL Hct 39.9 L (40.0-54.0) % MCV 96.4 H (82.0-94.0) fL MCH 31.9 (27.0-32.0) pg MCHC 33.1 (33.0-38.0) g/dL RDW Coeff of Brayan 14.8 (11.0-15.0) % Plt Count 190 (150-400) 10^3/uL Neut % (Auto) 70.0 (35-85) % Lymph % (Auto) 17.0 (10-55) % [place] % (Auto) 10.6 (0-16) % Eos % (Auto) 2.0 (0-5) % Baso % (Auto) 0.4 (0-3) % Neut # (Auto) 4.89 (1.80-7.00) 10^3/uL Lymph # (Auto) 1.19 (1.00-4.80) 10^3/uL [place] # (Auto) 0.74 (0.00-0.80) 10^3/uL Eos # (Auto) 0.14 (0.00-0.45) 10^3/uL Baso # (Auto) 0.03 10^3/uL PT 26.2 H (9.7-12.3) SEC INR 2.69 H (0.92-1.18) Sodium 146 H (136-145) mEq/L Potassium 3.8 (3.5-5.0) mEq/L Chloride 107 H (98-106) mEq/L Carbon Dioxide 30 (21-32) mmol/L BUN 29 H (7-18) mg/dL Creatinine 1.3 (0.7-1.3) mg/dL Est Cr Clr Drug Dosing 45.30 mL/min Estimated GFR (MDRD) 53 L (>=60) mL/min Glucose 58 L D (75-99) mg/dL Calcium 9.8 (8.4-10.1) mg/dL NT-Pro-B Natriuret Pep 2743 H (0-1000) pg/mL Result Diagrams: 04/05/19 14:20 04/05/19 14:20 - Problem List (1) Atrial flutter SNOMED Code(s): 1420515 ICD Code: I48.92 - UNSPECIFIED ATRIAL FLUTTER Status: Acute Priority: High Current Visit: Yes Qualifiers: Atrial flutter type: typical Qualified Code(s): I48.3 - Typical atrial flutter (2) Congestive heart failure (CHF) SNOMED Code(s): 02798460 ICD Code: I50.9 - HEART FAILURE, UNSPECIFIED Status: Chronic Priority: High Current Visit: Yes Qualifiers: Heart failure type: systolic Heart failure chronicity: acute on chronic Qualified Code(s): I50.23 - Acute on chronic systolic (congestive) heart failure Problem List Initiated/Reviewed/Updated: Yes Orders Last 24hrs: Active Orders 24 hr Category Date Time Status Patient Status [ADT] Routine ADT 04/05/19 13:59 Active Cardiac Monitoring [RC] 0800,2000 Care 04/05/19 14:02 Active Height and Weight [RC] 0500 Care 04/05/19 13:59 Active Intake and Output [RC] 0600,1800 Care 04/05/19 14:02 Active Oxygen Therapy [RC] .PRN Care 04/05/19 13:59 Active Pulse Oximetry [RC] .PRN Care 04/05/19 14:02 Active Up With Assistance [RC] ASDIRECTED Care 04/05/19 13:59 Active Vital Signs [RC] 0800,1200,1600,2000,0000,0400 Care 04/05/19 13:59 Active Consult to Dietary [Consult to Power And Recovery Shift Engineer] [CONS] Cons 04/05/19 14:12 Active Routine 2 Gram Sodium Diet [DIET] Diet 04/05/19 Dinner Active Chest 2V [CR] Stat Exams 04/05/19 13:59 Taken DIGOXIN [CHEM] AM Lab 04/06/19 05:11 Ordered INR,PT,PROTHROMBIN TIME [COAG] DAILY Lab 04/06/19 06:00 Ordered INR,PT,PROTHROMBIN TIME [COAG] DAILY Lab 04/07/19 06:00 Ordered INR,PT,PROTHROMBIN TIME [COAG] DAILY Lab 04/08/19 06:00 Ordered INR,PT,PROTHROMBIN TIME [COAG] DAILY Lab 04/09/19 06:00 Ordered Digoxin [Lanoxin] Med 04/06/19 12:00 Active 125 mcg PO DAILY@1200 Sodium Chloride 0.9% [Saline Flush] Med 04/05/19 13:59 Active 10 ml FLUSH ASDIRECTED PRN Saline Lock Insert [OM.PC] Routine Oth 04/05/19 13:59 Ordered Resuscitation Status Routine Resus Stat 04/05/19 13:59 Ordered Medication Orders Digoxin (Lanoxin) 125 mcg PO DAILY@1200 LUIS E Sodium Chloride (Saline Flush) 10 ml FLUSH ASDIRECTED PRN PRN Reason: Keep Vein Open
[2019-04-05] MEDS ORDERED: OLOPATADINE HCL EYEBOTH PRN (19:02)
[2019-04-05] MEDS: Mirtazapine 15 MG Tab PO SCH (19:56)
[2019-04-05] MEDS ORDERED: Fluticasone Propionate Nasal Spray 16 GM Bottle NASBOTH SCH (20:00)
[2019-04-05] MEDS ORDERED: Non-Formulary Medication 1 Each (Olopatadine [Patanol 0.1% Ophth Soln] 1 DROP) EYEBOTH SCH (20:00)
[2019-04-06] MEDS: Furosemide 40 MG Tab PO SCH (07:30)
[2019-04-06] MEDS: Loratadine 10 MG Tab PO SCH (07:30)
[2019-04-06] MEDS: Potassium Chloride 10 MEQ Tab.ER PO SCH (07:30)
[2019-04-06] MEDS: Diltiazem 120 MG Cap.CD PO SCH (07:31)
--- NOTE | 2019-04-06 11:37 | PN ---
DATE: 04/06/2019 S: Andi is an 79-year-old gentleman who was admitted by Tamara Arguelles PA-C, yesterday evening with concerns of tachycardia and some dizziness. He was started on digoxin yesterday, which he has seen Dr. Colby secondary to his atrial flutter, and they have considered ablation may be in the near future. He is on Coumadin secondary to atrial fibrillation. He denies any chest pain. No symptoms at this point in time. States the dizziness has improved as well this morning. Appears to be resting comfortably as well. O: VITAL SIGNS: Blood pressure is 113/71 with a pulse of 79, O2 is 97%, respirations 18, and temperature, he is afebrile. GENERAL: Pleasant, cooperative male, does not really appear to be in any acute distress, not acutely ill. HEENT: Grossly unremarkable. LUNGS: Clear to auscultation. I do not hear any adventitious sounds. CARDIAC: Regular rate, irregular rhythm. 1 to 2+ pedal edema bilaterally. ASSESSMENT: 1. ATRIAL FIBRILLATION, CURRENTLY RATE CONTROLLED. 2. DIZZINESS SUBSIDED. P: The patient has received 2 doses of digoxin by Dr. Oumar Joseph. We will continue digoxin 125 mcg at noon. We will have him ambulate, he is currently on telemetry, which we will continue to keep on telemetry to make sure we have no further dizziness episodes. Possibly you could look at discharge tomorrow. I did discuss this with Andi in detail. LUCIA/JULIETA /[id number]
[2019-04-06] MEDS ORDERED: Warfarin 2.5 MG Tab PO SCH (12:00)
[2019-04-06] MEDS: Digoxin 125 MCG Tab PO SCH (12:34)
[2019-04-06] MEDS: Acetaminophen/HYDROcodone 325-5 MG Tab PO PRN (13:07)
[2019-04-06] MEDS ORDERED: Fluticasone Propionate Nasal Spray 16 GM Bottle NASBOTH SCH (13:51)
[2019-04-06] MEDS: IPRATROPIUM BROMIDE 0.06% NASBOTH SCH (19:24)
[2019-04-06] MEDS: Mirtazapine 15 MG Tab PO SCH (19:24)
[2019-04-07] MEDS: Loratadine 10 MG Tab PO SCH (07:27)
[2019-04-07] MEDS: Diltiazem 120 MG Cap.CD PO SCH (07:27)
[2019-04-07] MEDS: IPRATROPIUM BROMIDE 0.06% NASBOTH SCH (07:28)
[2019-04-07] MEDS: Furosemide 40 MG Tab PO SCH (07:28)
[2019-04-07] MEDS: Potassium Chloride 10 MEQ Tab.ER PO SCH (07:28)
[2019-04-07 07:29] VITALS: PULSE 80
[2019-04-07] MEDS: Acetaminophen/HYDROcodone 325-5 MG Tab PO PRN (10:41)
[2019-04-07] MEDS ORDERED: Warfarin 5 MG Tab PO SCH (12:00)
[2019-04-07] MEDS: Digoxin 125 MCG Tab PO SCH (12:04)
--- NOTE | 2019-04-07 14:41 | PCM.DCSUM1 ---
Discharge Summary - Hospital Course HPI Initial Comments: This patient was admitted on 04/05/19 for dizziness. Patient has history of a flutter, afib. The patient has seen Dr. Colby mainframe software developer in the past and may have an upcoming ablation. The patient was started on Digoxin 04/05/19. Patient has been controlled now for more than 24 hours and has not had any complaints of dizziness. Patient ambulated yesterday without dizziness and today has been ambulating with assistance without any difficulty of dizziness. The patient denies all complaints. PCP suggested a discharge today. Will discharge the patient home on Digoxin. Patient has a scheduled appointment with Dr. Colby Tuesday at 8:30am. I will discharge the patient home today. - Discharge Data Discharge Date: 04/07/19 Discharge Disposition: Home, Self-Care 01 Condition: Good - Referral to Home Health Primary Care Physician: Tamara Arguelles PA-C - Patient Summary/Data Consults: Consultations 04/05/19 14:12 Consult to Dietary [Consult to Bulk Filler] [CONS] Routine - Patient Instructions Diet: Usual Diet as Tolerated Activity: As Tolerated Driving: Do Not Drive Showering/Bathing: May Shower (with assistance) Notify Provider of: Fever, Increased Pain, Nausea and/or Vomiting Other/Special Instructions: Followup with Dr. Colby as scheduled. Return as needed or for worsning of condition or any emergent concerns. Meds as prescribed. Go home and rest - Discharge Plan *PRESCRIPTION DRUG MONITORING PROGRAM REVIEWED*: Not Applicable *COPY OF PRESCRIPTION DRUG MONITORING REPORT IN PATIENT FLORA: Not Applicable Prescriptions/Med Rec: Digoxin [Digox] 125 mcg PO QAM #30 tablet Home Medications: Home Meds Hydrocodone/Acetaminophen [Hydrocodon-Acetaminophen 5-500] 1 each PO Q6H PRN [History] Ipratropium [place] 2 sprays NASBOTH BID 05/31/13 [History] Loratadine [Claritin] 10 mg PO DAILY 05/31/13 [History] Multivitamin [Multi-Vitamin Daily] 1 each PO DAILY 05/31/13 [History] Coconut Oil 1,000 mg PO DAILY 10/20/17 [History] Fluticasone Propionate [Flonase Allergy Relief] 2 sprays NASBOTH BEDTIME [History] Mirtazapine 15 mg PO BEDTIME 10/20/17 [History] Acetaminophen [Tylenol Extra Strength] 500 - 1,000 mg PO Q6H PRN 10/03/18 [ History] Furosemide 40 mg PO DAILY 03/05/19 [History] Olopatadine [Patanol 0.1% Ophth Soln] 1 drop EYEBOTH BID 03/05/19 [History] Warfarin [Coumadin] 2.5 mg PO ASDIRECTED 03/05/19 [History] Warfarin [Coumadin] 5 mg PO ASDIRECTED 03/05/19 [History] Olopatadine HCl 1 drop EYEBOTH BID PRN 03/13/19 [History] Potassium Chloride [Klor-Con 10] 10 meq PO DAILY #30 tab.er 03/20/19 [Rx] dilTIAZem HCl [Diltiazem 24Hr ER (Xr)] 240 mg PO DAILY #30 cap.er.deg 03/20/19 [ Rx] Digoxin [Digox] 125 mcg PO QAM #30 tablet 04/07/19 [Rx] - Discharge Summary/Plan Comment DC Time >30 min.: No - General Info Functional Status: Reports: Pain Controlled, Tolerating Diet, Ambulating - Review of Systems General: Reports: No Symptoms HEENT: Reports: No Symptoms Pulmonary: Reports: No Symptoms Cardiovascular: Reports: No Symptoms. Denies: Chest Pain, Palpitations, Dyspnea on Exertion, Lightheadedness Gastrointestinal: Reports: No Symptoms Genitourinary: Reports: No Symptoms Musculoskeletal: Reports: No Symptoms Skin: Reports: No Symptoms Neurological: Reports: No Symptoms. Denies: Dizziness Psychiatric: Reports: No Symptoms - Patient Data Vitals - Most Recent: Last Vital Signs Temp 98.7 F 04/07/19 08:00 Pulse 80 04/07/19 12:04 Resp 16 04/07/19 08:00 BP 113/85 04/07/19 08:00 Pulse Ox 97 04/07/19 08:00 Weight - Most Recent: 156 lb 11.2 oz I&O - Last 24 hours: Intake & Output 04/06/19 04/07/19 04/07/19 22:59 06:59 14:59 Intake Total 1050 400 Output Total 700 Balance 1050 -300 Lab Results - Last 24 hrs: Laboratory Results - last 24 hr 04/07/19 04/07/19 04/07/19 Range/Units 07:00 07:00 07:00 WBC 8.1 (5.0-10.0) 10^3/uL RBC 4.05 L (4.50-6.00) 10^6/uL Hgb 12.9 L (14.0-18.0) g/dL Hct 38.9 L (40.0-54.0) % MCV 96.0 H (82.0-94.0) fL MCH 31.9 (27.0-32.0) pg MCHC 33.2 (33.0-38.0) g/dL RDW Coeff of Brayan 14.4 (11.0-15.0) % Plt Count 159 (150-400) 10^3/uL Neut % (Auto) 71.1 (35-85) % Lymph % (Auto) 14.3 (10-55) % [place] % (Auto) 9.7 (0-16) % Eos % (Auto) 4.7 (0-5) % Baso % (Auto) 0.2 (0-3) % Neut # (Auto) 5.76 (1.80-7.00) 10^3/uL Lymph # (Auto) 1.16 (1.00-4.80) 10^3/uL [place] # (Auto) 0.79 (0.00-0.80) 10^3/uL Eos # (Auto) 0.38 (0.00-0.45) 10^3/uL Baso # (Auto) 0.02 10^3/uL PT 20.4 H (9.7-12.3) SEC INR 2.06 H (0.92-1.18) Sodium 142 (136-145) mEq/L Potassium 3.7 (3.5-5.0) mEq/L Chloride 103 (98-106) mEq/L Carbon Dioxide 28 (21-32) mmol/L BUN 26 H (7-18) mg/dL Creatinine 1.2 (0.7-1.3) mg/dL Est Cr Clr Drug Dosing 49.36 mL/min Estimated GFR (MDRD) 58 L (>=60) mL/min Glucose 107 H D (75-99) mg/dL Calcium 9.7 (8.4-10.1) mg/dL NT-Pro-B Natriuret Pep 1560 H (0-1000) pg/mL Digoxin 0.4 L (0.9-2.0) ng/mL Med Orders - Current: Current Medications Hydrocodone Bitart/Acetaminophen ([place] 325-5 Mg) 1 tab PO Q6H PRN PRN Reason: Pain (severe 7-10) Last Admin: 04/07/19 10:41 Dose: 1 tab Digoxin (Lanoxin) 125 mcg PO DAILY@1200 [facility] Last Admin: 04/07/19 12:04 Dose: 125 mcg Diltiazem HCl (Cardizem Cd) 240 mg PO DAILY [facility] Last Admin: 04/07/19 07:27 Dose: 240 mg Fluticasone Propionate (Flonase) 0 gm NASBOTH BEDTIME [facility] Last Admin: 04/06/19 19:24 Dose: 2 spray Furosemide (Lasix) 40 mg PO DAILY [facility] Last Admin: 04/07/19 07:28 Dose: 40 mg Loratadine (Claritin) 10 mg PO DAILY [facility] Last Admin: 04/07/19 07:27 Dose: 10 mg Mirtazapine (Remeron) 15 mg PO BEDTIME [facility] Last Admin: 04/06/19 19:24 Dose: 15 mg Non-Formulary Medication (Olopatadine Hcl [Olopatadine Hcl]) 1 drop EYEBOTH BID PRN PRN Reason: Dry Eyes Non-Formulary Medication (Olopatadine [Patanol 0.1% Ophth Soln]) 1 drop EYEBOTH BID [facility] Ipratropium [place] Nasal Solution 0.06% *Pt Own Med* 0 each NASBOTH BID [facility] Last Admin: 04/07/19 07:28 Dose: 1 each Potassium Chloride (Klor-Con 10) 10 meq PO DAILY [facility] Last Admin: 04/07/19 07:28 Dose: 10 meq Sodium Chloride (Saline Flush) 10 ml FLUSH ASDIRECTED PRN PRN Reason: Keep Vein Open Warfarin Sodium (Coumadin) 2.5 mg PO MoWeFr@1200 [facility] Last Admin: 04/06/19 12:34 Dose: 2.5 mg Warfarin Sodium (Coumadin) 5 mg PO SuTuThSa@1200 [facility] Last Admin: 04/07/19 12:04 Dose: 5 mg Discontinued Medications Digoxin (Lanoxin) 250 mcg IVPUSH ONETIME ONE Stop: 04/05/19 14:12 Last Admin: 04/05/19 15:07 Dose: 250 mcg Fluticasone Propionate (Flonase) 0 gm NASBOTH BEDTIME LUIS E Last Admin: 04/05/19 22:03 Dose: 2 spray Furosemide (Lasix) 40 mg IVPUSH ONETIME ONE Stop: 04/05/19 14:11 Last Admin: 04/05/19 15:05 Dose: 40 mg - Exam General: Reports: Alert, Oriented, Cooperative, No Acute Distress Lungs: Reports: Clear to Auscultation, Normal Respiratory Effort Cardiovascular: Reports: Irregular Rhythm (CONTROLLED RATE 80) Back Exam: Reports: Normal Inspection Extremities: Pedal Edema (+1 BLE) Skin: Reports: Warm, Dry, Intact Psy/Mental Status: Reports: Alert, Normal Affect, Normal Mood
[2019-04-07 14:46] VITALS: BP 112/83
== END 2019-04-07 15:15 | disposition home or self-care (01) | DRG 308 ==
LOC: CC.MS 13:25 → UNDOADMIN 13:25 → CC.MS 13:59
PROVIDERS: ADMIT Physician Assistant Medical; ATTEND Family Medicine
DX: I48.3 Typical atrial flutter (principal); I50.23 Acute on chronic systolic (congestive) heart failure; I11.0 Hypertensive heart disease with heart failure; E78.00 Pure hypercholesterolemia, unspecified; M19.90 Unspecified osteoarthritis, unspecified site; Z90.49 Acquired absence of other specified parts of digestive tract; Z79.01 Long term (current) use of anticoagulants; Z79.899 Other long term (current) drug therapy; Z88.8 Allergy status to other drugs, medicaments and biological substances
CPT/HCPCS: 36415; 71046; 80048; 80162; 83880; 85025; 85610; 93005; A9270-GY; J1160; J1940

== ENCOUNTER 2019-05-01 22:42 | Emergency (ER) | payer MEDICARE, BC ==
[2019-05-01] MEDS ORDERED: Diphtheria,Pertussis(Acell),Tetanus Vaccine 0.5 ML Syringe IM ONE (23:29)
[2019-05-01 23:34] LABS: CHLORIDE,CL 105 mEq/L (98-106); SODIUM,NA 147 mEq/L (136-145)
--- NOTE | 2019-05-02 00:25 | EDM.PDOC ---
ED HPI GENERAL MEDICAL PROBLEM - General Chief Complaint: Laceration Stated Complaint: laceration Time Seen by Provider: 05/01/19 23:07 Source of Information: Reports: Patient, Family () History Limitations: Reports: No Limitations - History of Present Illness INITIAL COMMENTS - FREE TEXT/NARRATIVE: Andi is an 79 yr old male who presents to the ED after sustaining a fall at home. He states he was in the kitchen getting some water for his pills and was dizzy and fell. He admits to having chronic dizziness and has been worked up multiple times. Recently seen cardiology and states they are considering placing a pacemaker. He states he did not have any loss of consciousness. Thinks he hit his head on the corner of the countertop. Admits he feels his normal self. is present and states she went over to him right away and he was awake. Stated he had fallen and needed help up. She did notice bleeding to the right back part of his head. He had fallen in September as well and ended up cutting his head in the same area. He denies any neurological symptoms. Denies any acute upper or lower extremity pain. No rib pain. Denies any abdominal or pelvic pain. Right Shoulder Pain Score (Numeric/FACES): 6 - Related Data Allergies Allergy/AdvReac Type Severity Reaction Status Date / Time atorvastatin calcium Allergy Muscle Verified 05/01/19 23:02 [From Lipitor] Aches Home Meds: Home Meds Hydrocodone/Acetaminophen [Hydrocodon-Acetaminophen 5-500] 1 each PO Q6H PRN [History] Ipratropium [place] 2 sprays NASBOTH BID 05/31/13 [History] Loratadine [Claritin] 10 mg PO DAILY 05/31/13 [History] Multivitamin [Multi-Vitamin Daily] 1 each PO DAILY 05/31/13 [History] Coconut Oil 1,000 mg PO DAILY 10/20/17 [History] Fluticasone Propionate [Flonase Allergy Relief] 2 sprays NASBOTH BEDTIME [History] Mirtazapine 15 mg PO BEDTIME 10/20/17 [History] Acetaminophen [Tylenol Extra Strength] 500 - 1,000 mg PO Q6H PRN 10/03/18 [ History] Furosemide 40 mg PO DAILY 03/05/19 [History] Olopatadine [Patanol 0.1% Ophth Soln] 1 drop EYEBOTH BID 03/05/19 [History] Warfarin [Coumadin] 2.5 mg PO MOWEFR 03/05/19 [History] Warfarin [Coumadin] 5 mg PO SUTUTHSA 03/05/19 [History] Olopatadine HCl 1 drop EYEBOTH BID PRN 03/13/19 [History] Potassium Chloride [Klor-Con 10] 10 meq PO DAILY #30 tab.er 03/20/19 [Rx] dilTIAZem HCL [Diltiazem 24Hr ER (Xr)] 240 mg PO DAILY #30 cap.er.deg 03/20/19 [ Rx] Digoxin [Digox] 125 mcg PO QAM #30 tablet 04/07/19 [Rx] Past Medical History HEENT History: Reports: Impaired Vision Cardiovascular History: Reports: Heart Failure, High Cholesterol, Hypertension, SOB on Exertion, Other (See Below) Other Cardiovascular History: vertigo Musculoskeletal History: Reports: Arthritis, Osteoarthritis - Past Surgical History Cardiovascular Surgical History: Reports: Coronary Artery Bypass GI Surgical History: Reports: Appendectomy, Cholecystectomy Musculoskeletal Surgical History: Reports: Arthroscopic Knee Social & Family History - Family History Family Medical History: Noncontributory - Tobacco Use Smoking Status *Q: Never Smoker - Caffeine Use Caffeine Use: Reports: Coffee - Recreational Drug Use Recreational Drug Use: No - Living Situation & Occupation Living situation: Reports: , with Spouse Occupation: Retired ED ROS GENERAL - Review of Systems Review Of Systems: Comprehensive ROS is negative, except as noted in HPI. Constitutional: Reports: No Symptoms HEENT: Reports: No Symptoms. Denies: Vision Change Respiratory: Reports: No Symptoms Cardiovascular: Reports: No Symptoms GI/Abdominal: Reports: No Symptoms Musculoskeletal: Reports: No Symptoms, Muscle Stiffness, Other (admits to chronic knee and shoulder pain from arthritis) Skin: Reports: Wound Neurological: Reports: Dizziness (has subsided), Pre-Existing Deficit. Denies: Confusion, Headache, Seizure, Syncope, Trouble Speaking, Change in Speech, Gait Disturbance Psychiatric: Reports: No Symptoms ED EXAM, SKIN/RASH Exam: See Below Exam Limited By: No Limitations (GCS 15) General Appearance: Alert, WD/WN, No Apparent Distress Eye Exam: Bilateral Eye: EOMI, Normal Inspection, PERRL Ears: Normal External Exam, Normal Canal, Normal TMs, Hearing Loss Nose: Normal Inspection, Normal Mucosa, No Blood Throat/Mouth: Normal Inspection, Normal Lips, Normal Teeth, Normal Gums, Normal Oropharynx, No Airway Compromise Head: Other (linear scalp laceration to right posterior parietal region. Mild bleeding noted) Neck: Normal Inspection, Supple Respiratory/Chest: No Respiratory Distress, Lungs Clear, Normal Breath Sounds, No Accessory Muscle Use, Chest Non-Tender Cardiovascular: Irregularly Irregular (normal rate) GI/Abdominal: Normal Bowel Sounds, Soft, Non-Tender, No Organomegaly, No Distention, No Abnormal Bruit, No Mass, Pelvis Stable Back Exam: No: Paraspinal Tenderness, Vertebral Tenderness Extremities: Normal Inspection, Non-Tender, No Pedal Edema Neurological: Alert, Oriented, CN II-XII Intact, Normal Cognition, Normal Gait, No Motor/Sensory Deficits Psychiatric: Normal Affect, Normal Mood Skin: Wound/Incision Location, Skin: Head Characteristics: Linear (4.5cm) ED SKIN PROCEDURES - Laceration/Wound Repair Right Posterior Lateral Head Appearance: Superficial, Linear, Clean Distal NVT: Neuro & Vascular Intact Exploration/Debridement/Repair: Wound Explored, In a Bloodless Field, Explored to Base Closed with: Katherine (9 katherine ) Lac/Wound length In cm: 4.5 Tetanus Status Addressed: Yes Complications: No EKG INTERPRETATION EKG Date: 05/02/19 Rhythm: A-Flutter Rate (Beats/Min): 88 Course - Vital Signs Last Recorded V/S: Last Vital Signs Temp 97.8 F 05/01/19 22:59 Pulse 96 05/01/19 22:59 Resp 16 05/01/19 22:59 BP 138/82 05/01/19 22:59 Pulse Ox 99 05/01/19 22:59 - Orders/Labs/Meds Orders: Active Orders 24 hr Category Date Time Status Neuro Check [RC] Q1HR Care 05/02/19 00:00 Ordered Vaccines to be Administered [RC] PER UNIT ROUTINE Care 05/01/19 23:29 Active Head wo Cont [CT] Routine Exams 05/01/19 Taken Labs: Laboratory Tests 05/01/19 05/01/19 05/01/19 Range/Units 23:05 23:05 23:05 WBC 7.9 (5.0-10.0) 10^3/uL RBC 4.47 L (4.50-6.00) 10^6/uL Hgb 14.2 (14.0-18.0) g/dL Hct 42.3 (40.0-54.0) % MCV 94.6 H (82.0-94.0) fL MCH 31.8 (27.0-32.0) pg MCHC 33.6 (33.0-38.0) g/dL RDW Coeff of Brayan 14.1 (11.0-15.0) % Plt Count 248 (150-400) 10^3/uL Neut % (Auto) 65.4 (35-85) % Lymph % (Auto) 20.7 (10-55) % [place] % (Auto) 9.8 (0-16) % Eos % (Auto) 3.8 (0-5) % Baso % (Auto) 0.3 (0-3) % Neut # (Auto) 5.15 (1.80-7.00) 10^3/uL Lymph # (Auto) 1.63 (1.00-4.80) 10^3/uL [place] # (Auto) 0.77 (0.00-0.80) 10^3/uL Eos # (Auto) 0.30 (0.00-0.45) 10^3/uL Baso # (Auto) 0.02 10^3/uL PT 13.9 H (9.7-12.3) SEC INR 1.37 H (0.92-1.18) Sodium 147 H (136-145) mEq/L Potassium 4.0 (3.5-5.0) mEq/L Chloride 105 (98-106) mEq/L Carbon Dioxide 28 (21-32) mmol/L BUN 24 H (7-18) mg/dL Creatinine 1.0 (0.7-1.3) mg/dL Est Cr Clr Drug Dosing 61.23 mL/min Estimated GFR (MDRD) > 60 (>=60) mL/min Glucose 93 (75-99) mg/dL Lactic Acid (0.4-2.0) mmol/L Calcium 10.3 H (8.4-10.1) mg/dL Total Bilirubin 0.3 (0.0-1.0) mg/dL AST 25 (15-37) U/L ALT 22 (12-78) U/L Alkaline Phosphatase 113 (46-116) U/L Total Protein 8.2 (6.4-8.2) g/dL Albumin 4.2 (3.4-5.0) g/dL Amylase 75 (25-115) U/L 05/01/19 Range/Units 23:05 WBC (5.0-10.0) 10^3/uL RBC (4.50-6.00) 10^6/uL Hgb (14.0-18.0) g/dL Hct (40.0-54.0) % MCV (82.0-94.0) fL MCH (27.0-32.0) pg MCHC (33.0-38.0) g/dL RDW Coeff of Brayan (11.0-15.0) % Plt Count (150-400) 10^3/uL Neut % (Auto) (35-85) % Lymph % (Auto) (10-55) % [place] % (Auto) (0-16) % Eos % (Auto) (0-5) % Baso % (Auto) (0-3) % Neut # (Auto) (1.80-7.00) 10^3/uL Lymph # (Auto) (1.00-4.80) 10^3/uL [place] # (Auto) (0.00-0.80) 10^3/uL Eos # (Auto) (0.00-0.45) 10^3/uL Baso # (Auto) 10^3/uL PT (9.7-12.3) SEC INR (0.92-1.18) Sodium (136-145) mEq/L Potassium (3.5-5.0) mEq/L Chloride (98-106) mEq/L Carbon Dioxide (21-32) mmol/L BUN (7-18) mg/dL Creatinine (0.7-1.3) mg/dL Est Cr Clr Drug Dosing mL/min Estimated GFR (MDRD) (>=60) mL/min Glucose (75-99) mg/dL Lactic Acid 1.7 (0.4-2.0) mmol/L Calcium (8.4-10.1) mg/dL Total Bilirubin (0.0-1.0) mg/dL AST (15-37) U/L ALT (12-78) U/L Alkaline Phosphatase (46-116) U/L Total Protein (6.4-8.2) g/dL Albumin (3.4-5.0) g/dL Amylase (25-115) U/L Meds: Medications Discontinued Medications Generic Name Dose Route Start Last Admin Trade Name Freq PRN Reason Stop Dose Admin Diphtheria/Tetanus/Acell Pertussis 0.5 ml 05/01/19 23:29 05/01/19 23:51 Adacel IM 05/01/19 23:30 0.5 ml .ONCE ONE Administration - Radiology Interpretation Free Text/Narrative:: CT head is negative for any acute intracranial abnormalities. Departure - Departure Time of Disposition: 06:00 Disposition: Home, Self-Care 01 Clinical Impression: Fall from ground level Superficial laceration of scalp Qualifiers: Encounter type: initial encounter Qualified Code(s): S01.01XA - Laceration without foreign body of scalp, initial encounter - Discharge Information Instructions: Stitches, [place], or Adhesive Wound Closure, [id number], Laceration Care, Adult, Head Injury, Adult, [id number] Referrals: Oumar Joseph MD [Primary Care Provider] - Additional Instructions: 1) [place] out in 6-8 days 2) Keep area clean and dry for initial 48 hours 3) No soaking scalp 4) May apply triple antibiotic ointment daily to incision 5) Watch for any changes in neurological status and if any concerns, advise reevaluation 6) CT of the brain was negative today for any acute changes 7) If any new onset of headaches, visual disturbances, change in gait or worsening dizziness, etc... advise returning to ED. Sepsis Event Note - Evaluation Sepsis Screening Result: No Definite Risk - Focused Exam Vital Signs: Vital Signs Temp Pulse Resp BP Pulse Ox 05/01/19 22:59 97.8 F 96 16 138/82 99 Date Exam was Performed: 05/02/19 Time Exam was Performed: 00:17 - Problem List & Annotations (1) Fall from ground level SNOMED Code(s): 45690393 Code(s): W18.30XA - FALL ON SAME LEVEL, UNSPECIFIED, INITIAL ENCOUNTER Status: Acute Current Visit: Yes (2) Superficial laceration of scalp SNOMED Code(s): 668510625 Code(s): S01.01XA - LACERATION WITHOUT FOREIGN BODY OF SCALP, INITIAL ENCOUNTER Status: Acute Current Visit: Yes Qualifiers: Encounter type: initial encounter Qualified Code(s): S01.01XA - Laceration without foreign body of scalp, initial encounter - My Orders Last 24 Hours: My Active Orders 05/02/19 00:00 Neuro Check [RC] Q1HR 05/01/19 Head wo Cont [CT] Routine 05/01/19 23:29 Vaccines to be Administered [RC] PER UNIT ROUTINE - Assessment/Plan Last 24 Hours: My Active Orders 05/02/19 00:00 Neuro Check [RC] Q1HR 05/01/19 Head wo Cont [CT] Routine 05/01/19 23:29 Vaccines to be Administered [RC] PER UNIT ROUTINE Plan: Andi has been doing well in the ED. CT of the brain was negative. He has been alert and oriented X 3 during his entire time in ED. Katherine X 9. Tdap updated as we reviewed past medical records with unknown prior status. Will closely monitor in extended ED tonight with serial neuro checks. Andi and his are both in agreement.
[2019-05-02 04:26] VITALS: BP 138/90; PULSE 88
== END 2019-05-02 05:50 | disposition home or self-care (01) ==
LOC: CC.ED 22:42
DX: S01.01XA Laceration without foreign body of scalp, initial encounter (principal); I10 Essential (primary) hypertension; Z79.899 Other long term (current) drug therapy; Z88.8 Allergy status to other drugs, medicaments and biological substances; Z23 Encounter for immunization; Z79.01 Long term (current) use of anticoagulants; W18.30XA Fall on same level, unspecified, initial encounter
CPT/HCPCS: 12002; 36415; 70450; 80053; 82150; 83605; 85025; 85610; 90471; 90715; 93005; 99284; 99284-25

== ENCOUNTER 2019-08-21 14:38 | Observation (INO) | payer MEDICARE, BC ==
[2019-08-21] MEDS ORDERED: Sodium Chloride 0.9% 10 ML Syringe FLUSH PRN (15:00)
[2019-08-21] MEDS: Furosemide 40 MG/4 ML VIAL IVPUSH SCH (16:03)
[2019-08-21] MEDS ORDERED: HYDROCODONE PO PRN (16:31)
[2019-08-21] MEDS ORDERED: ACETAMINOPHEN PO PRN (16:31)
[2019-08-21] MEDS: Mirtazapine 15 MG Tab PO SCH (19:38)
[2019-08-21] MEDS ORDERED: OLOPATADINE EYEBOTH SCH (20:00)
[2019-08-22] MEDS: DILTIAZEM HCL 240 MG PO SCH (07:36)
[2019-08-22] MEDS: Digoxin 125 MCG Tab PO SCH (07:37)
[2019-08-22] MEDS: Furosemide 40 MG/4 ML VIAL IVPUSH SCH (07:37)
[2019-08-22] MEDS ORDERED: Take Home: Acetaminophen/HYDROcodone 325-5 MG, 2 Tab Pack PO PRN (09:18)
--- NOTE | 2019-08-22 10:09 | PN ---
DATE: S: Mr. Ruby is a pleasant 79-year-old admitted yesterday with stasis dermatitis and multiple ulcerations of both lower extremities. He had Unna boots on when I saw him. His swelling had gotten worse over the last days. His BMPs were actually quite good. We elected to put him in the hospital for IV fluids to improve some of his edema and improve healing of his stasis ulcers. For the most part, he has been fine. He had a slightly low potassium on admit. He got a second dose of IV Lasix this morning, and he is down about 7 pounds already. His legs look much smaller. He denies any complaints of pain. O: NECK: His neck veins are flat. LUNGS: Clear. CARDIAC: Tones are irregular. ABDOMEN: Soft. EXTREMITIES: Lower extremities both show marked improvement in swelling, almost no swelling left in the thighs, and his calves are much less edematous. There is minimal ankle edema. He has open sores on his right anterior montes. They all appear clean. I do cut away his Unna boots and have a nice look at these. There are no signs of any secondary infection. ASSESSMENT: 1. STASIS ULCERATIONS, LOWER EXTREMITIES. 2. CONGESTIVE HEART FAILURE. 3. CHRONIC ATRIAL FIBRILLATION. 4. HYPOKALEMIA ON ADMIT. P: Did give him IV potassium yesterday. We will recheck a panel-8 magnesium now and start him on oral replacement. He got a second dose of IV Lasix this morning. I will not give another one later today. He should be able to get home on his oral medications tomorrow morning. ENRIQUE/JULIETA /[id number]
[2019-08-22] MEDS ORDERED: Warfarin 5 MG Tab PO SCH (12:00)
[2019-08-22] MEDS ORDERED: Potassium Chloride 20 MEQ in Premix Bag 1 BAG IV ONE (16:00)
[2019-08-22] MEDS ORDERED: Sodium Chloride 0.9% 100 ML IV SCH (16:30)
[2019-08-22] MEDS: Potassium Chloride 10 MEQ Tab.ER PO SCH (17:02)
[2019-08-22] MEDS: Mirtazapine 15 MG Tab PO SCH (19:17)
[2019-08-22] MEDS: Acetaminophen/HYDROcodone 325-5 MG Tab PO PRN (20:08)
[2019-08-23] MEDS: DILTIAZEM HCL 240 MG PO SCH (07:23)
[2019-08-23] MEDS: Potassium Chloride 10 MEQ Tab.ER PO SCH ×2 (07:24→17:46)
[2019-08-23] MEDS: Digoxin 125 MCG Tab PO SCH (07:24)
[2019-08-23 07:25] VITALS: PULSE 68
[2019-08-23] MEDS: Acetaminophen/HYDROcodone 325-5 MG Tab PO PRN (11:57)
[2019-08-23] MEDS ORDERED: Warfarin 5 MG Tab PO SCH (12:00)
[2019-08-23 16:20] VITALS: BP 120/67
--- NOTE | 2019-08-23 20:59 | DISCH ---
ADMISSION DIAGNOSES: 1. Acute exacerbation of chronic diastolic congestive heart failure. 2. Stasis ulcerations, bilateral lower extremities. 3. Hypokalemia. 4. Hypomagnesemia. 5. Chronic atrial fibrillation. DISCHARGE DIAGNOSIS: 1. ACUTE EXACERBATION OF CHRONIC DIASTOLIC CONGESTIVE HEART FAILURE. 2. STASIS ULCERATIONS, BILATERAL LOWER EXTREMITIES. 3. HYPOKALEMIA. 4. HYPOMAGNESEMIA. 5. CHRONIC ATRIAL FIBRILLATION. HISTORY: The patient presented to my office after leaving PT with Unna boots on. He had been having a marked increase in swelling in his lower extremities. He is sporadic with his Lasix. He is supposed to be on it b.i.d. I am not sure he gets it all the time. He is not overly cautious about his salt restriction. Nevertheless, he started having skin breakdown and Unna boots were applied. He came into my office for a followup. At that time, he had 2 to 3+ edema, and we wanted to aggressively diurese him and admitted him to the hospital for observation. At the time of this admission, he was found to be hypokalemic with a potassium of 3.3. His initial magnesium was normal, but on day 2 was low at 1.6. HOSPITAL COURSE: The patient was given 2 doses of IV Lasix, one on the day of admit, the second morning of. He lost a total of almost 9 pounds of fluid during his stay. His legs markedly improved. He remains with Unna boots in place, which will be changed next week by PT. Overall, he had a nice response. He has been on telemetry. He is slightly cedric at times, but this has been the case with him. He has actually been in sinus rhythm with a digoxin level of 0.5. He was slightly hypokalemic. He had increase in his oral replacement as well as 120 mEq IV dose, and his potassium on discharge was 3.7. Magnesium level is pending. Renal function has remained stable. His weights are down as stated earlier, 9 pounds, and we will send him home on his previous b.i.d. dose of Lasix, increased his potassium to 20 mEq from 10, and we will follow him up with lab work in 2 weeks' time. COMPLICATIONS: During the stay were none. CONSULTATIONS: PT. DISPOSITION: Discharged home with to home care. We will have Home Health see him for ongoing vital signs monitoring, medication administration, INR checks, and 2 or 3 times a week weights. ENRIQUE/JULIETA /[id number]
== END 2019-08-23 18:50 | disposition home health service (06) ==
LOC: UNDOADMOB 14:38 → CC.MS 14:38
PROVIDERS: ADMIT Family Medicine; ATTEND Family Medicine
DX: I11.0 Hypertensive heart disease with heart failure (principal); I50.33 Acute on chronic diastolic (congestive) heart failure; I83.009 Varicose veins of unspecified lower extremity with ulcer of unspecified site; L97.919 Non-pressure chronic ulcer of unspecified part of right lower leg with unspecified severity; L97.929 Non-pressure chronic ulcer of unspecified part of left lower leg with unspecified severity; E78.5 Hyperlipidemia, unspecified; I48.20 Chronic atrial fibrillation, unspecified; E87.6 Hypokalemia; E83.42 Hypomagnesemia; Z88.8 Allergy status to other drugs, medicaments and biological substances; Z79.899 Other long term (current) drug therapy; Z79.01 Long term (current) use of anticoagulants
CPT/HCPCS: 29580-GP; 36415; 71046; 80048; 80162; 83735; 83880; 85025; 85610; 86140; 93005; 96361; 96365; 96375; 96376; A9270-GY; G0378; J1940; J3475; J3480; J7050

== ENCOUNTER 2019-12-19 18:38 | Inpatient (IN) | payer MEDICARE, BC ==
--- NOTE | 2019-12-19 19:11 | EDM.PDOC ---
ED HPI GENERAL MEDICAL PROBLEM - General Chief Complaint: General Stated Complaint: weakness Time Seen by Provider: 12/19/19 18:50 Source of Information: Reports: Patient, RN History Limitations: Reports: No Limitations - History of Present Illness INITIAL COMMENTS - FREE TEXT/NARRATIVE: Pt was in to see Torey Arguelles in clinic this afternoon and had lab work and CXR and was discharged on zpak and promethazine with codeine. When he arrived at home was not able to get him out of car and into house and she called the ambulance to help her. When they assisted him to the recliner he was then not able to get out of it and she was not able to assist him. He has been falling more and needing more assist. When he fell last week he sustained a left clavicle fracture. He states that he went n to see Torey today for a cough and was told he had bronchitis. He denies any SOB with it. Does have some swelling to the right ankle. Onset: Gradual Associated Symptoms: Reports: Cough Right Shoulder Pain Score (Numeric/FACES): 8 - Related Data Allergies Allergy/AdvReac Type Severity Reaction Status Date / Time atorvastatin calcium AdvReac Muscle Verified 12/19/19 18:49 [From Lipitor] Aches Home Meds: Home Meds Ipratropium [place] 2 sprays NASBOTH BID 05/31/13 [History] Loratadine [Claritin] 10 mg PO DAILY 05/31/13 [History] Multivitamin [Multi-Vitamin Daily] 1 each PO DAILY 05/31/13 [History] Coconut Oil 1,000 mg PO DAILY 10/20/17 [History] Fluticasone Propionate [Flonase Allergy Relief] 2 sprays NASBOTH BEDTIME 10/20/17 [History] Mirtazapine 15 mg PO BEDTIME 10/20/17 [History] Acetaminophen [Tylenol Extra Strength] 500 - 1,000 mg PO Q6H PRN 10/03/18 [History] Furosemide 40 mg PO BID 03/05/19 [History] Olopatadine [Patanol 0.1% Ophth Soln] 1 drop EYEBOTH BID 03/05/19 [History] Warfarin [Coumadin] 2.5 mg PO MOWEFR 03/05/19 [History] Warfarin [Coumadin] 5 mg PO SUTUTHSA 03/05/19 [History] Olopatadine HCl 1 drop EYEBOTH BID PRN 03/13/19 [History] dilTIAZem HCL [Diltiazem 24Hr ER (Xr)] 240 mg PO DAILY #30 cap.er.deg 03/20/19 [Rx] Digoxin [Digox] 125 mcg PO QAM #30 tablet 04/07/19 [Rx] Hydrocodone/Acetaminophen [Hydrocodone-Acetamin 5-325 mg] 1 each PO Q8H PRN 08/21/19 [History] Potassium Chloride [Klor-Con 10] 20 meq PO DAILY #30 tab.er 08/23/19 [Rx] Past Medical History HEENT History: Reports: Hard of Hearing, Impaired Vision Cardiovascular History: Reports: Heart Failure, High Cholesterol, Hypertension, SOB on Exertion, Other (See Below) Other Cardiovascular History: vertigo Respiratory History: Reports: Bronchitis, Recurrent Musculoskeletal History: Reports: Arthritis, Osteoarthritis, Other (See Below) (fracture collarbone.) - Past Surgical History HEENT Surgical History: Reports: None Cardiovascular Surgical History: Reports: Coronary Artery Bypass Respiratory Surgical History: Reports: None GI Surgical History: Reports: Appendectomy, Cholecystectomy Musculoskeletal Surgical History: Reports: Arthroscopic Knee Social & Family History - Family History Family Medical History: Noncontributory - Tobacco Use Smoking Status *Q: Never Smoker - Caffeine Use Caffeine Use: Reports: Coffee, Soda - Recreational Drug Use Recreational Drug Use: No - Living Situation & Occupation Living situation: Reports: , with Spouse Occupation: Retired ED ROS GENERAL - Review of Systems Review Of Systems: See Below Constitutional: Reports: Weakness. Denies: Fever, Chills HEENT: Denies: Ear Pain, Throat Pain Respiratory: Reports: Cough Cardiovascular: Reports: Edema. Denies: Chest Pain GI/Abdominal: Denies: Abdominal Pain Musculoskeletal: Reports: Other (right clavicle) Skin: Reports: Wound (anterior shins) Neurological: Reports: Dizziness ED EXAM, GENERAL - Physical Exam Exam: See Below Exam Limited By: No Limitations General Appearance: Alert, WD/WN, No Apparent Distress Ears: Normal External Exam, Normal TMs Throat/Mouth: Normal Oropharynx, Normal Voice, No Airway Compromise Head: Atraumatic, Normocephalic Neck: Normal Inspection, Supple, Non-Tender Respiratory/Chest: No Respiratory Distress, Lungs Clear, Normal Breath Sounds Cardiovascular: Regular Rate, Rhythm GI/Abdominal: Normal Bowel Sounds, Soft, Non-Tender Extremities: Normal Inspection, Normal Range of Motion, Normal Capillary Refill, Pedal Edema (to the right lower leg.) Neurological: Alert, Oriented Skin Exam: Warm, Dry Course - Vital Signs Last Recorded V/S: Last Vital Signs Temp 98.7 F 12/19/19 18:45 Pulse 71 12/19/19 18:45 Resp 16 12/19/19 18:45 BP 133/75 12/19/19 18:45 Pulse Ox 92 L 12/19/19 18:45 - Orders/Labs/Meds Orders: Active Orders 24 hr Category Date Time Status Patient Status [ADT] Routine ADT 12/19/19 19:17 Active Cardiac Monitoring [RC] CONTINUOUS Care 12/19/19 19:18 Active Intake and Output [RC] QSHIFT Care 12/19/19 19:18 Active Oxygen Therapy [RC] PRN Care 12/19/19 19:17 Active Up With Assistance [RC] ASDIRECTED Care 12/19/19 19:17 Active VTE/DVT Education [RC] PER UNIT ROUTINE Care 12/19/19 19:17 Active Vital Signs [RC] Q4H Care 12/19/19 19:17 Active PT Evaluation and Treatment [CONS] Routine Cons 12/19/19 19:17 Active Regular Diet [DIET] Diet 12/19/19 Dinner Active Acetaminophen [TylenoL] Med 12/19/19 19:17 Active 650 mg PO Q4H PRN Azithromycin [Zithromax] 500 mg Med 12/19/19 19:30 Active Sodium Chloride 0.9% [Normal Saline] 250 ml IV Q24H Dextrose 5%-0.45% NaCl [Dextrose 5%-1/2 NS] 1,000 ml Med 12/19/19 19:30 Active IV ASDIRECTED Pantoprazole [ProTONIX IV] Med 12/19/19 19:30 Active 40 mg IVPUSH Q12H cefTRIAXone [Rocephin] Med 12/19/19 19:30 Active 1 gm IVPUSH Q24H Resuscitation Status Routine Resus Stat 12/19/19 19:17 Ordered Medication Orders Acetaminophen (Tylenol) 650 mg PO Q4H PRN PRN Reason: Pain (Mild 1-3)/fever Ceftriaxone Sodium (Rocephin) 1 gm IVPUSH Q24H [facility] Dextrose/Sodium Chloride (Dextrose 5%-1/2 Ns) 1,000 mls @ 75 mls/hr IV ASDIRECTED [facility] Azithromycin 500 mg/ Sodium (Chloride) 250 mls @ 250 mls/hr IV Q24H [facility] Pantoprazole Sodium (Protonix Iv) 40 mg IVPUSH Q12H [facility] Meds: Medications Generic Name Dose Route Start Last Admin Trade Name Freq PRN Reason Stop Dose Admin Acetaminophen 650 mg 12/19/19 19:17 Tylenol PO Q4H PRN Pain (Mild 1-3)/fever Ceftriaxone Sodium 1 gm 12/19/19 19:30 Rocephin IVPUSH Q24H [facility] Dextrose/Sodium Chloride 1,000 mls @ 75 mls/hr 12/19/19 19:30 Dextrose 5%-1/2 Ns IV ASDIRECTED [facility] Azithromycin 500 mg/ Sodium 250 mls @ 250 mls/hr 12/19/19 19:30 Chloride IV Q24H [facility] E Pantoprazole Sodium 40 mg 12/19/19 19:30 Protonix Iv IVPUSH Q12H [facility] - Re-Assessments/Exams Free Text/Narrative Re-Assessment/Exam: 12/19/19 19:[address] Joseph and he will be admitted for IV rocephin, and zithromax. PT consult. Vulnerable adult and weakness. Departure - Departure Time of Disposition: 19:55 Disposition: Admitted As Inpatient 65 Condition: Fair Clinical Impression: Closed right clavicular fracture, Weakness Acute bronchitis Qualifiers: Bronchitis organism: unspecified organism Qualified Code(s): J20.9 - Acute bronchitis, unspecified - Discharge Information *PRESCRIPTION DRUG MONITORING PROGRAM REVIEWED*: Not Applicable *COPY OF PRESCRIPTION DRUG MONITORING REPORT IN PATIENT FLORA: Not Applicable Forms: ED Department Discharge Sepsis Event Note (ED) - Evaluation Sepsis Screening Result: No Definite Risk - Focused Exam Vital Signs: Vital Signs Temp Pulse Resp BP Pulse Ox 12/19/19 18:45 98.7 F 71 16 133/75 92 L - Problem List & Annotations (1) Acute bronchitis SNOMED Code(s): 47090425 Code(s): J20.9 - ACUTE BRONCHITIS, UNSPECIFIED Status: Acute Priority: High Current Visit: Yes Qualifiers: Bronchitis organism: unspecified organism Qualified Code(s): J20.9 - Acute bronchitis, unspecified (2) Closed right clavicular fracture SNOMED Code(s): 17622873 Code(s): S42.001A - FRACTURE OF UNSP PART OF RIGHT CLAVICLE, INIT FOR CLOS FX Status: Acute Priority: Medium Current Visit: Yes Qualifiers: Encounter type: subsequent encounter Clavicle location: shaft Fracture alignment: nondisplaced Fracture healing: with routine healing Qualified Code(s): S42.024D - Nondisplaced fracture of shaft of right clavicle, subsequent encounter for fracture with routine healing (3) Weakness SNOMED Code(s): 97569208 Code(s): R53.1 - WEAKNESS Status: Acute Priority: High Current Visit: Yes - Problem List Review Problem List Initiated/Reviewed/Updated: Yes - My Orders Last 24 Hours: My Active Orders 12/19/19 Dinner Regular Diet [DIET] 12/19/19 19:17 Patient Status [ADT] Routine Oxygen Therapy [RC] PRN Up With Assistance [RC] ASDIRECTED VTE/DVT Education [RC] PER UNIT ROUTINE Vital Signs [RC] Q4H PT Evaluation and Treatment [CONS] Routine Acetaminophen [TylenoL] 650 mg PO Q4H PRN Resuscitation Status Routine 12/19/19 19:18 Cardiac Monitoring [RC] CONTINUOUS Intake and Output [RC] QSHIFT 12/19/19 19:30 Azithromycin [Zithromax] 500 mg Sodium Chloride 0.9% [Normal Saline] 250 ml IV Q24H Dextrose 5%-0.45% NaCl [Dextrose 5%-1/2 NS] 1,000 ml IV ASDIRECTED Pantoprazole [ProTONIX IV] 40 mg IVPUSH Q12H cefTRIAXone [Rocephin] 1 gm IVPUSH Q24H - Assessment/Plan Admission H&P: Please use this note as an admission H&P Last 24 Hours: My Active Orders 12/19/19 Dinner Regular Diet [DIET] 12/19/19 19:17 Patient Status [ADT] Routine Oxygen Therapy [RC] PRN Up With Assistance [RC] ASDIRECTED VTE/DVT Education [RC] PER UNIT ROUTINE Vital Signs [RC] Q4H PT Evaluation and Treatment [CONS] Routine Acetaminophen [TylenoL] 650 mg PO Q4H PRN Resuscitation Status Routine 12/19/19 19:18 Cardiac Monitoring [RC] CONTINUOUS Intake and Output [RC] QSHIFT 12/19/19 19:30 Azithromycin [Zithromax] 500 mg Sodium Chloride 0.9% [Normal Saline] 250 ml IV Q24H Dextrose 5%-0.45% NaCl [Dextrose 5%-1/2 NS] 1,000 ml IV ASDIRECTED Pantoprazole [ProTONIX IV] 40 mg IVPUSH Q12H cefTRIAXone [Rocephin] 1 gm IVPUSH Q24H Plan: will be admitted for IV antibiotics and PT consult with possible NH admission if he is not able to tae care of himself at home with his .
[2019-12-19] MEDS ORDERED: Pantoprazole 40 MG Vial IVPUSH SCH (19:30)
[2019-12-19] MEDS ORDERED: Azithromycin 500 MG in Sodium Chloride 0.9% 250 ML IV SCH ×2 (19:30→21:15)
[2019-12-19] MEDS ORDERED: cefTRIAXone 1 GM Vial IVPUSH SCH (19:30)
[2019-12-19] MEDS ORDERED: Take Home: Acetaminophen/HYDROcodone 325-5 MG, 2 Tab Pack PO PRN ×2 (20:02→20:25)
[2019-12-19] MEDS ORDERED: Warfarin 2.5 MG Tab PO SCH (20:15)
[2019-12-19] MEDS: Dextrose 5%-0.45% NaCl 1,000 ML IV SCH (21:11)
[2019-12-19] MEDS: cefTRIAXone 1 GM Vial IVPUSH SCH (21:30)
[2019-12-19] MEDS: Pantoprazole 40 MG Vial IVPUSH SCH (21:36)
[2019-12-19] MEDS: Acetaminophen/HYDROcodone 325-5 MG Tab PO PRN (21:53)
[2019-12-19] MEDS: CODEINE PO PRN (23:35)
[2019-12-19] MEDS: PROMETHAZINE HCL PO PRN (23:35)
[2019-12-20] MEDS: Pantoprazole 40 MG Vial IVPUSH SCH ×2 (06:19→18:31)
[2019-12-20] MEDS ORDERED: DILTIAZEM HCL 180 MG PO SCH (08:00)
[2019-12-20] MEDS ORDERED: Furosemide 40 MG Tab PO SCH (08:00)
[2019-12-20] MEDS: Potassium Chloride 10 MEQ Tab.ER PO SCH (08:18)
[2019-12-20] MEDS: Digoxin 125 MCG Tab PO SCH (08:18)
[2019-12-20] MEDS: Loratadine 10 MG Tab PO SCH (08:18)
[2019-12-20] MEDS: IPRATROPIUM BROMIDE 0.06% NASBOTH SCH ×2 (08:19→19:42)
[2019-12-20] MEDS: PROMETHAZINE HCL PO PRN ×3 (08:23→22:02)
[2019-12-20] MEDS: CODEINE PO PRN ×3 (08:23→22:02)
--- NOTE | 2019-12-20 09:31 | PCM.PN ---
- General Info Date of Service: 12/20/19 Admission Dx/Problem (Free Text): Bronchitis Weakness Vulnerable adult Palliative care patient Functional Status: Reports: Tolerating Diet, Urinating. Denies: Pain Controlled, Ambulating - Review of Systems General: Reports: Weakness, Fatigue, Malaise HEENT: Reports: No Symptoms Pulmonary: Reports: Cough, Sputum. Denies: Shortness of Breath Cardiovascular: Denies: Chest Pain, Edema, Lightheadedness Gastrointestinal: Denies: Abdominal Pain, Nausea, Vomiting Genitourinary: Reports: No Symptoms Musculoskeletal: Reports: Shoulder Pain Skin: Reports: No Symptoms Neurological: Reports: Weakness - Patient Data Vitals - Most Recent: Last Vital Signs Temp 98.4 F 12/20/19 00:00 Pulse 67 12/20/19 08:18 Resp 18 12/20/19 00:00 BP 146/75 H 12/20/19 00:00 Pulse Ox 93 L 12/20/19 00:00 Weight - Most Recent: 178 lb 8 oz Lab Results Last 24 Hours: Laboratory Results - last 24 hr 12/20/19 Range/Units 06:55 PT 17.5 H (9.7-12.3) SEC INR 1.74 H (0.92-1.18) Med Orders - Current: Current Medications Acetaminophen (Tylenol) 650 mg PO Q4H PRN PRN Reason: Pain (Mild 1-3)/fever Hydrocodone Bitart/Acetaminophen ([place] 325-5 Mg) 1 tab PO Q8H PRN PRN Reason: Pain Last Admin: 12/19/19 21:53 Dose: 1 tab Documented by: Ceftriaxone Sodium (Rocephin) 1 gm IVPUSH DAILY@1999 [facility] Last Admin: 12/19/19 21:30 Dose: 1 gm Documented by: Digoxin (Lanoxin) 125 mcg PO QAM [facility] Last Admin: 12/20/19 08:18 Dose: 125 mcg Documented by: Diltiazem HCl (Cardizem Cd) 180 mg PO DAILY [facility] Fluticasone Propionate (Flonase) 0 gm NASBOTH BEDTIME [facility] Furosemide (Lasix) 40 mg PO BIDDIURETIC [facility] Dextrose/Sodium Chloride (Dextrose 5%-1/2 Ns) 1,000 mls @ 75 mls/hr IV ASDIRECTED [facility] Last Admin: 12/19/19 21:11 Dose: 75 mls/hr Documented by: Azithromycin 500 mg/ Sodium (Chloride) 250 mls @ 250 mls/hr IV DAILY@2000 [facility] Last Admin: 12/19/19 21:41 Dose: 250 mls/hr Documented by: Loratadine (Claritin) 10 mg PO DAILY [facility] Last Admin: 12/20/19 08:18 Dose: 10 mg Documented by: Mirtazapine (Remeron) 15 mg PO BEDTIME [facility] Ipratropium [place] 0.06% Nasal [place] Own Med 2 sprays NASBOTH BID [facility] Last Admin: 12/20/19 08:19 Dose: 2 sprays Documented by: Non-Formulary Medication (Olopatadine [Patanol 0.1% Ophth Soln]) 1 drop EYEBOTH BID [facility] Promethazine Hcl/Codeine [Prometh- Codein 6.25-10 Mg/5 Ml] Own Med 5 ml PO Q6H PRN PRN Reason: Cough Last Admin: 12/20/19 08:23 Dose: 5 ml Documented by: Pantoprazole Sodium (Protonix Iv) 40 mg IVPUSH BID@0700,1900 [facility] Last Admin: 12/20/19 06:19 Dose: 40 mg Documented by: Potassium Chloride (Klor-Con 10) 20 meq PO DAILY [facility] Last Admin: 12/20/19 08:18 Dose: 20 meq Documented by: Warfarin Sodium (Coumadin) 2.5 mg PO MoWeFr@1200 [facility] Warfarin Sodium (Coumadin) 5 mg PO SuTuThSa@1200 [facility] Discontinued Medications Hydrocodone Bitart/Acetaminophen (Take Home: Acetaminophen/Hydrocod, 2 Tab Pack) 1 packet PO Q8H PRN PRN Reason: Pain Ceftriaxone Sodium (Rocephin) 1 gm IVPUSH Q24H [facility] Last Admin: 12/19/19 21:32 Dose: Not Given Documented by: Furosemide (Lasix) 40 mg PO BID [facility] Last Admin: 12/20/19 08:19 Dose: 40 mg Documented by: Azithromycin 500 mg/ Sodium (Chloride) 250 mls @ 250 mls/hr IV Q24H [facility] Last Admin: 12/19/19 21:33 Dose: Not Given Documented by: Non-Formulary Medication (Diltiazem Hcl [Diltiazem 24hr Er (Xr)]) 180 mg PO DAILY [facility] Pantoprazole Sodium (Protonix Iv) 40 mg IVPUSH Q12H [facility] Last Admin: 12/19/19 21:32 Dose: Not Given Documented by: Warfarin Sodium (Coumadin) 2.5 mg PO MOWEFR [facility] Last Admin: 12/19/19 21:33 Dose: Not Given Documented by: Warfarin Sodium (Coumadin) 5 mg PO SUTUTHSA [facility] - Exam General: Alert, Oriented HEENT: Mucous Membr. Moist/[place] Neck: Supple Lungs: Decreased Breath Sounds, Rhonchi Cardiovascular: Regular Rate, Regular Rhythm GI/Abdominal Exam: Normal Bowel Sounds, Soft, Non-Tender Extremities: Normal Inspection, Pedal Edema (1+ RLE) Skin: Warm, Dry Neurological: No New Focal Deficit Sepsis Event Note - Evaluation Sepsis Screening Result: No Definite Risk - Focused Exam Vital Signs: Vital Signs Temp Pulse Pulse Resp BP Pulse Ox 12/20/19 08:18 67 12/20/19 04:00 63 12/20/19 00:00 98.4 F 75 18 146/75 H 93 L - Problem List & Annotations (1) Acute bronchitis SNOMED Code(s): 13311366 Code(s): J20.9 - ACUTE BRONCHITIS, UNSPECIFIED Status: Acute Priority: High Current Visit: Yes Qualifiers: Bronchitis organism: unspecified organism Qualified Code(s): J20.9 - Acute bronchitis, unspecified (2) Failure to thrive SNOMED Code(s): 11156821 Code(s): [id number] - Status: Acute Priority: High Current Visit: Yes (3) Weakness SNOMED Code(s): 37244891 Code(s): R53.1 - WEAKNESS Status: Acute Priority: High Current Visit: Yes (4) Palliative care patient SNOMED Code(s): 105166008, 952954219 Code(s): Z51.5 - ENCOUNTER FOR PALLIATIVE CARE Status: Acute Priority: High Current Visit: Yes - Problem List Review Problem List Initiated/Reviewed/Updated: Yes - My Orders Last 24 Hours: My Active Orders 12/20/19 08:57 Consult to Case Management/[facility] [place] [CONS] Routine - Assessment Assessment:: Bronchitis Weakness Vulnerable Adult Palliative care patient - Plan Plan:: Patient stable this am. Continues to complain of right shoulder pain and frequent cough. Nursing staff report patient is weak, takes 2 to assist for transfers. Denies shortness of breath. Appetite is good. Labs remain normal yesterday. INR mildly low at 1.74, will continue to monitor this as is on IV antibiotics for bronchitis/pneumonia. Continue with current IV meds. Social service consult for assisted placement due to frequent falls, inability to care for self. Physical therapy eval.
[2019-12-20] MEDS: Diltiazem 180 MG Cap.CD PO SCH (09:57)
[2019-12-20] MEDS: Non-Formulary Medication 1 Each (Olopatadine [Patanol 0.1% Ophth Soln] 1 DROP) EYEBOTH SCH ×2 (09:57→19:47)
[2019-12-20] MEDS: Warfarin 5 MG Tab PO SCH (12:15)
[2019-12-20] MEDS: Dextrose 5%-0.45% NaCl 1,000 ML IV SCH (12:15)
[2019-12-20] MEDS: Acetaminophen/HYDROcodone 325-5 MG Tab PO PRN (13:53)
[2019-12-20] MEDS: Furosemide 40 MG Tab PO SCH (15:54)
[2019-12-20] MEDS: Fluticasone Propionate Nasal Spray 16 GM Bottle NASBOTH SCH (19:41)
[2019-12-20] MEDS: Azithromycin 500 MG in Sodium Chloride 0.9% 250 ML IV SCH (19:43)
[2019-12-20] MEDS: Mirtazapine 15 MG Tab PO SCH (19:46)
[2019-12-20] MEDS: cefTRIAXone 1 GM Vial IVPUSH SCH (19:47)
[2019-12-20] MEDS ORDERED: Warfarin 5 MG Tab PO SCH (20:02)
[2019-12-20] MEDS: Acetaminophen 325 MG Tab PO PRN (22:01)
[2019-12-21] MEDS: Dextrose 5%-0.45% NaCl 1,000 ML IV SCH (02:51)
[2019-12-21] MEDS: Pantoprazole 40 MG Vial IVPUSH SCH ×2 (06:39→19:59)
[2019-12-21 07:26] LABS: CHLORIDE,CL 103 mEq/L (98-106); SODIUM,NA 136 mEq/L (136-145)
[2019-12-21] MEDS: IPRATROPIUM BROMIDE 0.06% NASBOTH SCH ×2 (08:22→21:16)
[2019-12-21] MEDS: Furosemide 40 MG Tab PO SCH ×2 (08:22→16:10)
[2019-12-21] MEDS: Digoxin 125 MCG Tab PO SCH (08:23)
[2019-12-21] MEDS: Diltiazem 180 MG Cap.CD PO SCH (08:23)
[2019-12-21] MEDS: Potassium Chloride 10 MEQ Tab.ER PO SCH (08:23)
[2019-12-21] MEDS: Loratadine 10 MG Tab PO SCH (08:23)
[2019-12-21] MEDS: Polyethylene Glycol 3350 Powder 17 GM Packet PO SCH (08:59)
--- NOTE | 2019-12-21 10:03 | PCM.PN ---
- General Info Date of Service: 12/21/19 Admission Dx/Problem (Free Text): Bronchitis Weakness Vulnerable adult Palliative care patient Functional Status: Reports: Pain Controlled, Tolerating Diet. Denies: Ambulating - Review of Systems General: Reports: Weakness, Fatigue, Malaise HEENT: Reports: Rhinitis Pulmonary: Reports: Cough, Sputum. Denies: Shortness of Breath Cardiovascular: Reports: Edema. Denies: Chest Pain, Lightheadedness Gastrointestinal: Reports: Constipation. Denies: Abdominal Pain, Nausea, Vomiting Genitourinary: Reports: No Symptoms Musculoskeletal: Reports: Shoulder Pain, Back Pain Skin: Reports: No Symptoms Neurological: Reports: Weakness - Patient Data Vitals - Most Recent: Last Vital Signs Temp 98.7 F 12/21/19 03:36 Pulse 72 12/21/19 08:23 Resp 18 12/21/19 03:36 BP 166/91 H 12/21/19 03:36 Pulse Ox 93 L 12/21/19 03:36 Weight - Most Recent: 178 lb 8 oz I&O - Last 24 Hours: Intake & Output 12/20/19 12/21/19 12/21/19 22:59 06:59 14:59 Intake Total 1000 Balance 1000 Lab Results Last 24 Hours: Laboratory Results - last 24 hr 12/21/19 12/21/19 12/21/19 Range/Units 06:55 06:55 06:55 WBC 6.8 (5.0-10.0) 10^3/uL RBC 4.27 L (4.50-6.00) 10^6/uL Hgb 13.4 L (14.0-18.0) g/dL Hct 39.6 L (40.0-54.0) % MCV 92.7 (82.0-94.0) fL MCH 31.4 (27.0-32.0) pg MCHC 33.8 (33.0-38.0) g/dL RDW Coeff of Brayan 15.5 H (11.0-15.0) % Plt Count 262 (150-400) 10^3/uL Neut % (Auto) 65.3 (35-85) % Lymph % (Auto) 14.6 (10-55) % [place] % (Auto) 16.0 (0-16) % Eos % (Auto) 3.8 (0-5) % Baso % (Auto) 0.3 (0-3) % Neut # (Auto) 4.42 (1.80-7.00) 10^3/uL Lymph # (Auto) 0.99 L (1.00-4.80) 10^3/uL [place] # (Auto) 1.08 H (0.00-0.80) 10^3/uL Eos # (Auto) 0.26 (0.00-0.45) 10^3/uL Baso # (Auto) 0.02 10^3/uL PT 17.7 H (9.7-12.3) SEC INR 1.76 H (0.92-1.18) Sodium 136 (136-145) mEq/L Potassium 3.9 (3.5-5.0) mEq/L Chloride 103 (98-106) mEq/L Carbon Dioxide 28 (21-32) mmol/L BUN 17 (7-18) mg/dL Creatinine 1.0 (0.7-1.3) mg/dL Est Cr Clr Drug Dosing 53.17 mL/min Estimated GFR (MDRD) > 60 (>=60) mL/min Glucose 110 H (75-99) mg/dL Calcium 9.0 (8.4-10.1) mg/dL C-Reactive Protein 1.4 H (0.2-0.8) mg/dL Med Orders - Current: Current Medications Acetaminophen (Tylenol) 650 mg PO Q4H PRN PRN Reason: Pain (Mild 1-3)/fever Last Admin: 12/20/19 22:01 Dose: 650 mg Documented by: Hydrocodone Bitart/Acetaminophen ([place] 325-5 Mg) 1 tab PO Q8H PRN PRN Reason: Pain Last Admin: 12/20/19 13:53 Dose: 1 tab Documented by: Ceftriaxone Sodium (Rocephin) 1 gm IVPUSH DAILY@1999 [facility] Last Admin: 12/20/19 19:47 Dose: 1 gm Documented by: Digoxin (Lanoxin) 125 mcg PO QAM [facility] Last Admin: 12/21/19 08:23 Dose: 125 mcg Documented by: Diltiazem HCl (Cardizem Cd) 180 mg PO DAILY [facility] Last Admin: 12/21/19 08:23 Dose: 180 mg Documented by: Fluticasone Propionate (Flonase) 0 gm NASBOTH BEDTIME [facility] Last Admin: 12/20/19 19:41 Dose: 2 spray Documented by: Furosemide (Lasix) 40 mg PO BIDDIURETIC [facility] Last Admin: 12/21/19 08:22 Dose: 40 mg Documented by: Azithromycin 500 mg/ Sodium (Chloride) 250 mls @ 250 mls/hr IV DAILY@1999 [facility] Last Admin: 12/20/19 19:43 Dose: 250 mls/hr Documented by: Loratadine (Claritin) 10 mg PO DAILY [facility] Last Admin: 12/21/19 08:23 Dose: 10 mg Documented by: Mirtazapine (Remeron) 15 mg PO BEDTIME [facility] Last Admin: 12/20/19 19:46 Dose: 15 mg Documented by: Ipratropium [place] 0.06% Nasal [place] Own Med 2 sprays NASBOTH BID [facility] Last Admin: 12/21/19 08:22 Dose: 2 sprays Documented by: Non-Formulary Medication (Olopatadine [Patanol 0.1% Ophth Soln]) 1 drop EYEBOTH BID [facility] Last Admin: 12/20/19 19:47 Dose: Not Given Documented by: Promethazine Hcl/Codeine [Prometh- Codein 6.25-10 Mg/5 Ml] Own Med 5 ml PO Q6H PRN PRN Reason: Cough Last Admin: 12/20/19 22:02 Dose: 5 ml Documented by: Pantoprazole Sodium (Protonix Iv) 40 mg IVPUSH BID@0700,1900 [facility] Last Admin: 12/21/19 06:39 Dose: 40 mg Documented by: Polyethylene Glycol (Miralax) 17 gm PO DAILY [facility] Last Admin: 12/21/19 08:59 Dose: 17 gm Documented by: Potassium Chloride (Klor-Con 10) 20 meq PO DAILY [facility] Last Admin: 12/21/19 08:23 Dose: 20 meq Documented by: Warfarin Sodium (Coumadin) 2.5 mg PO MoWeFr@1200 [facility] Warfarin Sodium (Coumadin) 5 mg PO SuTuThSa@1200 [facility] Last Admin: 12/20/19 12:15 Dose: 5 mg Documented by: Discontinued Medications Hydrocodone Bitart/Acetaminophen (Take Home: Acetaminophen/Hydrocod, 2 Tab Pack) 1 packet PO Q8H PRN PRN Reason: Pain Ceftriaxone Sodium (Rocephin) 1 gm IVPUSH Q24H [facility] Last Admin: 12/19/19 21:32 Dose: Not Given Documented by: Furosemide (Lasix) 40 mg PO BID [facility] Last Admin: 12/20/19 08:19 Dose: 40 mg Documented by: Dextrose/Sodium Chloride (Dextrose 5%-1/2 Ns) 1,000 mls @ 75 mls/hr IV ASDIRECTED [facility] Last Admin: 12/21/19 02:51 Dose: 75 mls/hr Documented by: Azithromycin 500 mg/ Sodium (Chloride) 250 mls @ 250 mls/hr IV Q24H [facility] Last Admin: 12/19/19 21:33 Dose: Not Given Documented by: Azithromycin 500 mg/ Sodium (Chloride) 250 mls @ 250 mls/hr IV DAILY@1999 [facility] Last Admin: 12/19/19 21:41 Dose: 250 mls/hr Documented by: Non-Formulary Medication (Diltiazem Hcl [Diltiazem 24hr Er (Xr)]) 180 mg PO DAILY [facility] Last Admin: 12/20/19 09:59 Dose: Not Given Documented by: Pantoprazole Sodium (Protonix Iv) 40 mg IVPUSH Q12H [facility] Last Admin: 12/19/19 21:32 Dose: Not Given Documented by: Warfarin Sodium (Coumadin) 2.5 mg PO MOWEFR [facility] Last Admin: 12/19/19 21:33 Dose: Not Given Documented by: Warfarin Sodium (Coumadin) 5 [facility] - Exam General: Alert, Oriented HEENT: Mucous Membr. Moist/[place] Neck: Supple Lungs: Rhonchi Cardiovascular: Regular Rate, Regular Rhythm GI/Abdominal Exam: Normal Bowel Sounds, Soft, Non-Tender Extremities: Normal Inspection, Pedal Edema (trace to RLE) Skin: Warm, Dry Neurological: No New Focal Deficit Sepsis Event Note - Evaluation Sepsis Screening Result: No Definite Risk - Focused Exam Vital Signs: Vital Signs Temp Pulse Pulse Resp BP Pulse Ox 12/21/19 08:23 72 12/21/19 03:36 98.7 F 75 18 166/91 H 93 L 12/20/19 23:47 99.0 F 75 18 166/70 H 93 L - Problem List & Annotations (1) Acute bronchitis SNOMED Code(s): 29261664 Code(s): J20.9 - ACUTE BRONCHITIS, UNSPECIFIED Status: Acute Priority: High Current Visit: Yes Qualifiers: Bronchitis organism: unspecified organism Qualified Code(s): J20.9 - Acute bronchitis, unspecified (2) Failure to thrive SNOMED Code(s): 79397604 Code(s): YEY8020 - Status: Acute Priority: High Current Visit: Yes (3) Weakness SNOMED Code(s): 85039714 Code(s): R53.1 - WEAKNESS Status: Acute Priority: High Current Visit: Yes (4) Palliative care patient SNOMED Code(s): 478620560, 407232084 Code(s): Z51.5 - ENCOUNTER FOR PALLIATIVE CARE Status: Acute Priority: High Current Visit: Yes - Problem List Review Problem List Initiated/Reviewed/Updated: Yes - My Orders Last 24 Hours: My Active Orders 12/21/19 08:30 polyethylene glycoL 3350 [MiraLAX] 17 gm PO DAILY - Assessment Assessment:: Bronchitis Weakness Vulnerable Adult Palliative care patient - Plan Plan:: Patient stable this am. Continues to complain of right shoulder pain and frequent cough. Nursing staff report patient is weak, takes 2 to assist for transfers. Denies shortness of breath. Appetite is good. Labs remain normal yesterday. INR mildly low at 1.74, will continue to monitor this as is on IV antibiotics for bronchitis/pneumonia. Continue with current IV meds. Social service consult for retirement placement due to frequent falls, inability to care for self. Physical therapy eval. 12-21-2019 Patient resting comfortably this am. Does still complain of shoulder and back pain. Has recent clavicle fracture. Is to be wearing his sling but is noncompliant with it. No shortness of breath but admits to frequent cough and sputum production. Patient remains weak, requires assist for any transfers. Dr. Joseph did speak with in regards to retirement admission, she is now not agreeable to this. Does admit it is difficult for her to care for him but states "son helps him". Labs are all stable, WBC remains normal. CRP 1.4. Will continue with IV antibiotics. Physical therapy. Continue to follow and determine if will regain enough strength to return home versus retirement.
[2019-12-21] MEDS: Non-Formulary Medication 1 Each (Olopatadine [Patanol 0.1% Ophth Soln] 1 DROP) EYEBOTH SCH ×2 (10:23→20:13)
[2019-12-21] MEDS: PROMETHAZINE HCL PO PRN (11:05)
[2019-12-21] MEDS: CODEINE PO PRN (11:05)
[2019-12-21] MEDS ORDERED: Warfarin 2.5 MG Tab PO SCH (12:00)
[2019-12-21] MEDS: cefTRIAXone 1 GM Vial IVPUSH SCH (20:05)
[2019-12-21] MEDS: Azithromycin 500 MG in Sodium Chloride 0.9% 250 ML IV SCH (20:10)
[2019-12-21] MEDS: Fluticasone Propionate Nasal Spray 16 GM Bottle NASBOTH SCH (20:12)
[2019-12-21] MEDS: Mirtazapine 15 MG Tab PO SCH (20:13)
[2019-12-21] MEDS: Acetaminophen/HYDROcodone 325-5 MG Tab PO PRN (23:34)
[2019-12-22] MEDS: Pantoprazole 40 MG Vial IVPUSH SCH ×2 (06:32→19:58)
[2019-12-22] MEDS: Potassium Chloride 10 MEQ Tab.ER PO SCH (08:12)
[2019-12-22] MEDS: Digoxin 125 MCG Tab PO SCH (08:12)
[2019-12-22] MEDS: Polyethylene Glycol 3350 Powder 17 GM Packet PO SCH (08:12)
[2019-12-22] MEDS: Loratadine 10 MG Tab PO SCH (08:12)
[2019-12-22] MEDS: Diltiazem 180 MG Cap.CD PO SCH (08:12)
[2019-12-22] MEDS: IPRATROPIUM BROMIDE 0.06% NASBOTH SCH ×2 (08:12→20:57)
[2019-12-22] MEDS: Furosemide 40 MG Tab PO SCH ×2 (08:13→17:21)
--- NOTE | 2019-12-22 09:58 | PCM.PN ---
- General Info Date of Service: 12/22/19 Functional Status: Reports: Pain Controlled (controlled, but does have right "shoulder" pain. ), Tolerating Diet. Denies: Ambulating - Review of Systems General: Reports: Weakness (generally) HEENT: Reports: No Symptoms Pulmonary: Reports: Cough, Sputum, Other (hurts right shoulder to cough). Denies: Shortness of Breath Cardiovascular: Reports: No Symptoms Gastrointestinal: Reports: No Symptoms Genitourinary: Reports: No Symptoms Musculoskeletal: Reports: No Symptoms Skin: Reports: No Symptoms Neurological: Reports: No Symptoms Psychiatric: Reports: No Symptoms - Patient Data Vitals - Most Recent: Last Vital Signs Temp 98.2 F 12/21/19 20:30 Pulse 79 12/22/19 08:12 Resp 16 12/21/19 20:30 BP 121/67 12/21/19 20:30 Pulse Ox 92 L 12/21/19 20:30 Weight - Most Recent: 178 lb 8 oz Lab Results Last 24 Hours: Laboratory Results - last 24 hr 12/22/19 12/22/19 12/22/19 Range/Units 05:00 05:00 06:00 WBC 9.5 (5.0-10.0) 10^3/uL RBC 4.53 (4.50-6.00) 10^6/uL Hgb 14.1 (14.0-18.0) g/dL Hct 41.5 (40.0-54.0) % MCV 91.6 (82.0-94.0) fL MCH 31.1 (27.0-32.0) pg MCHC 34.0 (33.0-38.0) g/dL RDW Coeff of Brayan 15.3 H (11.0-15.0) % Plt Count 262 (150-400) 10^3/uL Neut % (Auto) 75.5 (35-85) % Lymph % (Auto) 9.0 L (10-55) % [place] % (Auto) 14.9 (0-16) % Eos % (Auto) 0.4 (0-5) % Baso % (Auto) 0.2 (0-3) % Neut # (Auto) 7.17 H (1.80-7.00) 10^3/uL Lymph # (Auto) 0.85 L (1.00-4.80) 10^3/uL [place] # (Auto) 1.41 H (0.00-0.80) 10^3/uL Eos # (Auto) 0.04 (0.00-0.45) 10^3/uL Baso # (Auto) 0.02 10^3/uL PT 16.5 H (9.7-12.3) SEC INR 1.64 H (0.92-1.18) Sodium 137 (136-145) mEq/L Potassium 3.6 (3.5-5.0) mEq/L Chloride 100 (98-106) mEq/L Carbon Dioxide 30 (21-32) mmol/L BUN 17 (7-18) mg/dL Creatinine 1.2 (0.7-1.3) mg/dL Est Cr Clr Drug Dosing 44.31 mL/min Estimated GFR (MDRD) 58 L (>=60) mL/min Glucose 115 H (75-99) mg/dL Calcium 9.3 (8.4-10.1) mg/dL C-Reactive Protein 4.0 H (0.2-0.8) mg/dL Med Orders - Current: Current Medications Acetaminophen (Tylenol) 650 mg PO Q4H PRN PRN Reason: Pain (Mild 1-3)/fever Last Admin: 12/20/19 22:01 Dose: 650 mg Documented by: Hydrocodone Bitart/Acetaminophen ([place] 325-5 Mg) 1 tab PO Q8H PRN PRN Reason: Pain Last Admin: 12/21/19 23:34 Dose: 1 tab Documented by: Ceftriaxone Sodium (Rocephin) 1 gm IVPUSH DAILY@1999 [facility] Last Admin: 12/21/19 20:05 Dose: 1 gm Documented by: Digoxin (Lanoxin) 125 mcg PO QAM [facility] Last Admin: 12/22/19 08:12 Dose: 125 mcg Documented by: Diltiazem HCl (Cardizem Cd) 180 mg PO DAILY [facility] Last Admin: 12/22/19 08:12 Dose: 180 mg Documented by: Fluticasone Propionate (Flonase) 0 gm NASBOTH BEDTIME [facility] Last Admin: 12/21/19 20:12 Dose: 2 spray Documented by: Furosemide (Lasix) 40 mg PO BIDDIURETIC [facility] Last Admin: 12/22/19 08:13 Dose: 40 mg Documented by: Azithromycin 500 mg/ Sodium (Chloride) 250 mls @ 250 mls/hr IV DAILY@2000 [facility] Last Admin: 12/21/19 20:10 Dose: 250 mls/hr Documented by: Loratadine (Claritin) 10 mg PO DAILY [facility] Last Admin: 12/22/19 08:12 Dose: 10 mg Documented by: Mirtazapine (Remeron) 15 mg PO BEDTIME [facility] Last Admin: 12/21/19 20:13 Dose: 15 mg Documented by: Ipratropium [place] 0.06% Nasal [place] Own Med 2 sprays NASBOTH BID [facility] Last Admin: 12/22/19 08:12 Dose: 2 sprays Documented by: Non-Formulary Medication (Olopatadine [Patanol 0.1% Ophth Soln]) 1 drop EYEBOTH BID [facility] Last Admin: 12/21/19 20:13 Dose: Not Given Documented by: Promethazine Hcl/Codeine [Prometh- Codein 6.25-10 Mg/5 Ml] Own Med 5 ml PO Q6H PRN PRN Reason: Cough Last Admin: 12/21/19 11:05 Dose: 5 ml Documented by: Pantoprazole Sodium (Protonix Iv) 40 mg IVPUSH BID@0700,1900 [facility] Last Admin: 12/22/19 06:32 Dose: 40 mg Documented by: Polyethylene Glycol (Miralax) 17 gm PO DAILY [facility] Last Admin: 12/22/19 08:12 Dose: 17 gm Documented by: Potassium Chloride (Klor-Con 10) 20 meq PO DAILY [facility] Last Admin: 12/22/19 08:12 Dose: 20 meq Documented by: Warfarin Sodium (Coumadin) 2.5 mg PO MoWeFr@1200 [facility] Last Admin: 12/21/19 11:55 Dose: 2.5 mg Documented by: Warfarin Sodium (Coumadin) 5 mg PO SuTuThSa@1200 [facility] Last Admin: 12/20/19 12:15 Dose: 5 mg Documented by: Discontinued Medications Hydrocodone Bitart/Acetaminophen (Take Home: Acetaminophen/Hydrocod, 2 Tab Pack) 1 packet PO Q8H PRN PRN Reason: Pain Ceftriaxone Sodium (Rocephin) 1 gm IVPUSH Q24H [facility] Last Admin: 12/19/19 21:32 Dose: Not Given Documented by: Furosemide (Lasix) 40 mg PO BID [facility] Last Admin: 12/20/19 08:19 Dose: 40 mg Documented by: Dextrose/Sodium Chloride (Dextrose 5%-1/2 Ns) 1,000 mls @ 75 mls/hr IV ASDIRECTED [facility] Last Admin: 12/21/19 02:51 Dose: 75 mls/hr Documented by: Azithromycin 500 mg/ Sodium (Chloride) 250 mls @ 250 mls/hr IV Q24H [facility] Last Admin: 12/19/19 21:33 Dose: Not Given Documented by: Azithromycin 500 mg/ Sodium (Chloride) 250 mls @ 250 mls/hr IV DAILY@1999 [facility] Last Admin: 12/19/19 21:41 Dose: 250 mls/hr Documented by: Non-Formulary Medication (Diltiazem Hcl [Diltiazem 24hr Er (Xr)]) 180 mg PO DAILY [facility] Last Admin: 12/20/19 09:59 Dose: Not Given Documented by: Pantoprazole Sodium (Protonix Iv) 40 mg IVPUSH Q12H [facility] Last Admin: 12/19/19 21:32 Dose: Not Given Documented by: Warfarin Sodium (Coumadin) 2.5 mg PO MOWEFR [facility] Last Admin: 12/19/19 21:33 Dose: Not Given Documented by: Warfarin Sodium (Coumadin) 5 mg PO SUT[place]SA [facility] - Exam General: Alert, Cooperative, Other (oriented to self and place. He reports its 2001.) Neck: Supple, Trachea Midline, No JVD Lungs: Decreased Breath Sounds (mildly bases. Patient not taking deep breaths. ) Cardiovascular: Regular Rate, Regular Rhythm GI/Abdominal Exam: Soft, Non-Tender Extremities: Normal Inspection, Normal Range of Motion, Non-Tender, Normal Capillary Refill, Pedal Edema (+1 BLE) Peripheral Pulses: 2+: Radial (L), Radial (R), Posterior Tibial (L), Posterior Tibial (R), Dorsalis Pedis (L), Dorsalis Pedis (R) Skin: Warm, Dry, Other (mild abrasions and skin tears BLE anterior healing and scabbing) Neurological: Normal Speech, Strength Equal Bilateral, Sensation Intact Psy/Mental Status: Alert, Normal Affect, Normal Mood Sepsis Event Note - Evaluation Sepsis Screening Result: No Definite Risk - Focused Exam Vital Signs: Vital Signs Pulse 12/22/19 08:12 79 - Problem List Review Problem List Initiated/Reviewed/Updated: Yes - My Orders Last 24 Hours: My Active Orders 12/22/19 09:00 Chest 1V Frontal [CR] Stat 12/23/19 05:00 BASIC METABOLIC PANEL,BMP [CHEM] DAILY CBC WITH AUTO DIFF [HEME] DAILY CRP [C-REACTIVE PROTEIN] [CHEM] DAILY INR,PT,PROTHROMBIN TIME [COAG] DAILY 12/24/19 05:00 BASIC METABOLIC PANEL,BMP [CHEM] DAILY CBC WITH AUTO DIFF [HEME] DAILY CRP [C-REACTIVE PROTEIN] [CHEM] DAILY INR,PT,PROTHROMBIN TIME [COAG] DAILY - Assessment Assessment:: Bronchitis Weakness Vulnerable Adult Palliative care patient - Plan Plan:: Patient stable this am. Continues to complain of right shoulder pain and f requent cough. Nursing staff report patient is weak, takes 2 to assist for transfers. Denies shortness of breath. Appetite is good. Labs remain normal yesterday. INR mildly low at 1.74, will continue to monitor this as is on IV antibiotics for bronchitis/pneumonia. Continue with current IV meds. Social service consult for custodial placement due to frequent falls, inability to care for self. Physical therapy eval. 12-21-2019 Patient resting comfortably this am. Does still complain of shoulder and back pain. Has recent clavicle fracture. Is to be wearing his sling but is noncomp liant with it. No shortness of breath but admits to frequent cough and sputum production. Patient remains weak, requires assist for any transfers. Dr. Joseph did speak with in regards to custodial admission, she is now not agreeable to this. Does admit it is difficult for her to care for him but states "son helps him". Labs are all stable, WBC remains normal. CRP 1.4. Will continue with IV antibiotics. Physical therapy. Continue to follow and determine if will regain enough strength to return home versus custodial. 12/22/2019 [id number] This patient was admitted for right shoulder pain with cough/bronchitis vs pneumonia. Patient was unable to get up from bed and required two person assist. Today, the patient remains unable to get up without 2 person assist. He is generally weak. The patient continues to complain of right shoulder pain, cough that is productive. He is awake, alert, and oriented to person and place. He reports it is 2000. As per report the will not take the patient home because she can not take care of him and the son is unable to help due to hurt back. This patient is a 2 person assist and if the can not take care of him, can not go home. The though has refused custodial. The plan will be to continue to treat the bronchitis and have geriatric social worker work with the for either home discharge or custodial discharge. At this time the patient can not safely go home. I did order a chest xray for comparison due to patient productive cough and he is not taking big deep breaths due to the right shoulder pain. I also ordered a incentive spirometer to use. Will continue the admit.
--- NOTE | 2019-12-22 12:31 | PCM.SN.2 ---
- Free Text/Narrative Note: Reviewed CXR: Left lower base new infiltrate. Will continue IV abx tx and admit.
[2019-12-22] MEDS: Non-Formulary Medication 1 Each (Olopatadine [Patanol 0.1% Ophth Soln] 1 DROP) EYEBOTH SCH ×2 (13:02→20:59)
[2019-12-22] MEDS: Warfarin 5 MG Tab PO SCH (13:03)
[2019-12-22] MEDS ORDERED: Albuterol/Ipratropium 3.0-0.5 MG/3 ML Neb Soln NEB PRN (13:10)
--- NOTE | 2019-12-22 16:42 | PCM.SN.2 ---
- Free Text/Narrative Note: The RN reported this patient since this morning has become a little more drowsy and at times confused. The patient reports that he feels fine. He is drowsy and easily awakened. He is alert when awakened. He knows his name. He says the year is [address] a graduation. This is a change form earlier this morn ing. The patient does have pneumonia. I do recall patient history doing this before in the past when in the hospital. I reviewed previous notes and it is reported the patient was much worse than now, but hospitalist was consulted before and medication changes were done. I followed this same treatment to stop the Rocephin and Zithromax and start Vanc and Zosyn. This was documented to the be the cause last pneumonia visit. I will also head ct the patient with mental status changes today. There is no unilateral weaknesses noted on exam. GCS 13.
[2019-12-22] MEDS: Piperacillin/Tazobactam 3.375 GM in Sodium Chloride 0.9% 100 ML IV SCH ×2 (17:22→23:20)
[2019-12-22] MEDS: Acetaminophen 325 MG Tab PO PRN (17:35)
[2019-12-22] MEDS: Fluticasone Propionate Nasal Spray 16 GM Bottle NASBOTH SCH (20:51)
[2019-12-22] MEDS: Mirtazapine 15 MG Tab PO SCH (20:56)
[2019-12-22] MEDS: Albuterol/Ipratropium 3.0-0.5 MG/3 ML Neb Soln NEB SCH (20:57)
[2019-12-23] MEDS: Piperacillin/Tazobactam 3.375 GM in Sodium Chloride 0.9% 100 ML IV SCH ×4 (04:58→22:47)
[2019-12-23] MEDS: Pantoprazole 40 MG Vial IVPUSH SCH ×2 (06:29→18:48)
[2019-12-23] MEDS: Digoxin 125 MCG Tab PO SCH (07:25)
[2019-12-23] MEDS: Polyethylene Glycol 3350 Powder 17 GM Packet PO SCH (07:25)
[2019-12-23] MEDS: Potassium Chloride 10 MEQ Tab.ER PO SCH (07:25)
[2019-12-23] MEDS: Furosemide 40 MG Tab PO SCH ×2 (07:25→16:37)
[2019-12-23] MEDS: Albuterol/Ipratropium 3.0-0.5 MG/3 ML Neb Soln NEB SCH ×4 (07:25→19:58)
[2019-12-23] MEDS: Diltiazem 180 MG Cap.CD PO SCH (07:25)
[2019-12-23] MEDS: Loratadine 10 MG Tab PO SCH (07:25)
[2019-12-23] MEDS: IPRATROPIUM BROMIDE 0.06% NASBOTH SCH ×2 (07:27→19:54)
[2019-12-23] MEDS: Acetaminophen/HYDROcodone 325-5 MG Tab PO PRN ×2 (07:28→23:56)
[2019-12-23] MEDS: Non-Formulary Medication 1 Each (Olopatadine [Patanol 0.1% Ophth Soln] 1 DROP) EYEBOTH SCH ×2 (07:28→20:01)
[2019-12-23] MEDS: Acetaminophen 325 MG Tab PO PRN (07:29)
[2019-12-23] MEDS ORDERED: Sodium Chloride 0.9% 250 ML IV SCH (11:15)
[2019-12-23] MEDS: Warfarin 5 MG Tab PO SCH (11:18)
[2019-12-23] MEDS: Sodium Chloride 0.9% 1,000 ML IV SCH ×2 (11:53→23:56)
--- NOTE | 2019-12-23 13:44 | PCM.PN ---
- General Info Date of Service: 12/23/19 Functional Status: Reports: Pain Controlled, Tolerating Diet - Review of Systems General: Reports: Weakness (generally), Malaise HEENT: Reports: No Symptoms Pulmonary: Reports: Shortness of Breath, Pleuritic Chest Pain, Cough, Sputum Cardiovascular: Reports: No Symptoms Gastrointestinal: Reports: No Symptoms Genitourinary: Reports: Incontinence Musculoskeletal: Reports: No Symptoms Skin: Reports: No Symptoms Neurological: Reports: No Symptoms Psychiatric: Reports: No Symptoms - Patient Data Vitals - Most Recent: Last Vital Signs Temp 100.0 F 12/23/19 08:00 Pulse 75 12/23/19 08:00 Resp 20 12/23/19 08:00 BP 107/66 12/23/19 08:00 Pulse Ox 94 L 12/23/19 08:00 Weight - Most Recent: 178 lb 8 oz Lab Results Last 24 Hours: Laboratory Results - last 24 hr 12/23/19 12/23/19 12/23/19 Range/Units 05:00 05:00 06:00 WBC 9.4 (5.0-10.0) 10^3/uL RBC 4.03 L (4.50-6.00) 10^6/uL Hgb 12.6 L (14.0-18.0) g/dL Hct 37.7 L (40.0-54.0) % MCV 93.5 (82.0-94.0) fL MCH 31.3 (27.0-32.0) pg MCHC 33.4 (33.0-38.0) g/dL RDW Coeff of Brayan 15.3 H (11.0-15.0) % Plt Count 133 L (150-400) 10^3/uL Neut % (Auto) 79.9 (35-85) % Lymph % (Auto) 8.4 L (10-55) % [place] % (Auto) 11.1 (0-16) % Eos % (Auto) 0.4 (0-5) % Baso % (Auto) 0.2 (0-3) % Neut # (Auto) 7.47 H (1.80-7.00) 10^3/uL Lymph # (Auto) 0.79 L (1.00-4.80) 10^3/uL [place] # (Auto) 1.04 H (0.00-0.80) 10^3/uL Eos # (Auto) 0.04 (0.00-0.45) 10^3/uL Baso # (Auto) 0.02 10^3/uL PT 17.6 H (9.7-12.3) SEC INR 1.75 H (0.92-1.18) Sodium 140 (136-145) mEq/L Potassium 3.6 (3.5-5.0) mEq/L Chloride 103 (98-106) mEq/L Carbon Dioxide 30 (21-32) mmol/L BUN 26 H D (7-18) mg/dL Creatinine 1.6 H (0.7-1.3) mg/dL Est Cr Clr Drug Dosing 33.23 mL/min Estimated GFR (MDRD) 42 L (>=60) mL/min Glucose 114 H (75-99) mg/dL Calcium 8.9 (8.4-10.1) mg/dL C-Reactive Protein 17.6 H (0.2-0.8) mg/dL Med Orders - Current: Current Medications Acetaminophen (Tylenol) 650 mg PO Q4H PRN PRN Reason: Pain (Mild 1-3)/fever Last Admin: 12/23/19 07:29 Dose: 650 mg Documented by: Hydrocodone Bitart/Acetaminophen ([place] 325-5 Mg) 1 tab PO Q8H PRN PRN Reason: Pain Last Admin: 12/23/19 07:28 Dose: 1 tab Documented by: Albuterol/Ipratropium (Duoneb 3.0-0.5 Mg/3 Ml) 3 ml NEB Q4H PRN PRN Reason: Dyspnea Last Admin: 12/22/19 14:30 Dose: 3 ml Documented by: Albuterol/Ipratropium (Duoneb 3.0-0.5 Mg/3 Ml) 3 ml NEB QIDRT [facility] Last Admin: 12/23/19 11:53 Dose: 3 ml Documented by: Digoxin (Lanoxin) 125 mcg PO QAM [facility] Last Admin: 12/23/19 07:25 Dose: 125 mcg Documented by: Diltiazem HCl (Cardizem Cd) 180 mg PO DAILY [facility] Last Admin: 12/23/19 07:25 Dose: 180 mg Documented by: Fluticasone Propionate (Flonase) 0 gm NASBOTH BEDTIME [facility] Last Admin: 12/22/19 20:51 Dose: 2 spray Documented by: Furosemide (Lasix) 40 mg PO BIDDIURETIC [facility] Last Admin: 12/23/19 07:25 Dose: 40 mg Documented by: Piperacillin Sod/Tazobactam (Sod 3.375 gm/ Sodium Chloride) 100 mls @ 200 mls/hr IV Q6H [facility] Last Admin: 12/23/19 11:10 Dose: 200 mls/hr Documented by: Vancomycin HCl 1.25 gm/ Sodium (Chloride) 250 mls @ 166.667 mls/hr IV Q18H [facility] Last Admin: 12/23/19 11:15 Dose: 166.667 mls/hr Documented by: Sodium Chloride (Normal Saline) 250 mls @ 250 mls/hr IV .BOLUS [facility] Stop: 12/24/19 11:15 Sodium Chloride (Normal Saline) 1,000 mls @ 75 mls/hr IV ASDIRECTED [facility] Stop: 12/24/19 08:00 Last Admin: 12/23/19 11:53 Dose: 75 mls/hr Documented by: Loratadine (Claritin) 10 mg PO DAILY [facility] Last Admin: 12/23/19 07:25 Dose: 10 mg Documented by: Mirtazapine (Remeron) 15 mg PO BEDTIME [facility] Last Admin: 12/22/19 20:56 Dose: 15 mg Documented by: Ipratropium [place] 0.06% Nasal [place] Own Med 2 sprays NASBOTH BID [facility] Last Admin: 12/23/19 07:27 Dose: 2 sprays Documented by: Non-Formulary Medication (Olopatadine [Patanol 0.1% Oph Soln]) 1 drop EYEBOTH BID [facility] Last Admin: 12/23/19 07:28 Dose: Not Given Documented by: Promethazine Hcl/Codeine [Prometh- Codein 6.25-10 Mg/5 Ml] Own Med 5 ml PO Q6H PRN PRN Reason: Cough Last Admin: 12/21/19 11:05 Dose: 5 ml Documented by: Pantoprazole Sodium (Protonix Iv) 40 mg IVPUSH BID@0700,1900 [facility] Last Admin: 12/23/19 06:29 Dose: 40 mg Documented by: Polyethylene Glycol (Miralax) 17 gm PO DAILY [facility] Last Admin: 12/23/19 07:25 Dose: 17 gm Documented by: Potassium Chloride (Klor-Con 10) 20 meq PO DAILY [facility] Last Admin: 12/23/19 07:25 Dose: 20 meq Documented by: Vancomycin HCl (Pharmacy To Dose - Vancomycin) 1 dose .XX ASDIRECTED [facility] Warfarin Sodium (Coumadin) 2.5 mg PO MoWeFr@1200 [facility] Last Admin: 12/21/19 11:55 Dose: 2.5 mg Documented by: Warfarin Sodium (Coumadin) 5 mg PO SuTuThSa@1200 [facility] Last Admin: 12/23/19 11:18 Dose: 5 mg Documented by: Discontinued Medications Hydrocodone Bitart/Acetaminophen (Take Home: Acetaminophen/Hydrocod, 2 Tab Pack) 1 packet PO Q8H PRN PRN Reason: Pain Albuterol/Ipratropium (Duoneb 3.0-0.5 Mg/3 Ml) 3 ml NEB BIDRT [facility] Last Admin: 12/23/19 07:25 Dose: 3 ml Documented by: Ceftriaxone Sodium (Rocephin) 1 gm IVPUSH Q24H [facility] Last Admin: 12/19/19 21:32 Dose: Not Given Documented by: Ceftriaxone Sodium (Rocephin) 1 gm IVPUSH DAILY@1999 [facility] Last Admin: 12/21/19 20:05 Dose: 1 gm Documented by: Furosemide (Lasix) 40 mg PO BID [facility] Last Admin: 12/20/19 08:19 Dose: 40 mg Documented by: Dextrose/Sodium Chloride (Dextrose 5%-1/2 Ns) 1,000 mls @ 75 [facility] Last Admin: 12/21/19 02:51 Dose: 75 mls/hr Documented by: Azithromycin 500 mg/ Sodium (Chloride) 250 mls @ 250 mls/hr IV Q24H [facility] Last Admin: 12/19/19 21:33 Dose: Not Given Documented by: Azithromycin 500 mg/ Sodium (Chloride) 250 mls @ 250 mls/hr IV DAILY@1999 [facility] Last Admin: 12/19/19 21:41 Dose: 250 mls/hr Documented by: Azithromycin 500 mg/ Sodium (Chloride) 250 mls @ 250 mls/hr IV DAILY@1999 [facility] Last Admin: 12/21/19 20:10 Dose: 250 mls/hr Documented by: Non-Formulary Medication (Diltiazem Hcl [Diltiazem 24hr Er (Xr)]) 180 mg PO DAILY [facility] Last Admin: 12/20/19 09:59 Dose: Not Given Documented by: Pantoprazole Sodium (Protonix Iv) 40 mg IVPUSH Q12H [facility] Last Admin: 12/19/19 21:32 Dose: Not Given Documented by: Warfarin Sodium (Coumadin) 2.5 mg PO MOWEFR [facility] Last Admin: 12/19/19 21:33 Dose: Not Given Documented by: Warfarin Sodium (Coumadin) 5 mg PO SUTUTHSA [facility] - Exam General: Alert, Oriented, Cooperative Lungs: Decreased Breath Sounds (moderately throughout), Crackles (Bilateral lower bases), Rhonchi (throughout) Cardiovascular: Regular Rate, Regular Rhythm GI/Abdominal Exam: Normal Bowel Sounds, Soft, Non-Tender, No Organomegaly, No Distention, No Abnormal Bruit, No Mass, Pelvis Stable Back Exam: Normal Inspection, Full Range of Motion Extremities: Normal Inspection, Normal Range of Motion, Non-Tender, No Pedal Edema, Normal Capillary Refill Peripheral Pulses: 2+: Radial (L), Radial (R), Posterior Tibial (L), Posterior Tibial (R) Skin: Warm, Dry, Intact Neurological: Strength Equal Bilateral, Sensation Intact Psy/Mental Status: Alert, Normal Affect, Normal Mood Sepsis Event Note - Evaluation Sepsis Screening Result: No Definite Risk - Focused Exam Vital Signs: Vital Signs Temp Pulse Pulse Resp BP BP Pulse Ox 12/23/19 08:00 100.0 F 75 20 107/66 94 L 12/23/19 07:25 75 12/23/19 03:58 99.2 F 80 16 107/72 94 L Pulse Ox 12/23/19 08:00 94 L 12/23/19 07:25 12/23/19 03:58 - Problem List Review Problem List Initiated/Reviewed/Updated: Yes - My Orders Last 24 Hours: My Active Orders 12/22/19 13:10 RT Aerosol Therapy [RC] 0800,1999 Albuterol/Ipratropium [DuoNeb 3.0-0.5 MG/3 ML] 3 ml NEB Q4H PRN 12/22/19 16:42 Head wo Cont [CT] Stat 12/22/19 16:45 Pharmacy to Dose - Vancomycin 1 dose .XX ASDIRECTED 12/22/19 17:00 Piperacillin/Tazobactam [Piperacil-Tazobact] 3.375 gm Sodium Chloride 0.9% [Normal Saline] 100 ml IV Q6H Vancomycin 1.25 gm Sodium Chloride 0.9% [Normal Saline] 250 ml IV Q18H 12/23/19 11:15 Sodium Chloride 0.9% [Normal Saline] 1,000 ml IV ASDIRECTED Sodium Chloride 0.9% [Normal Saline] 250 ml IV .BOLUS 12/23/19 11:17 Urinary Catheter Assessment [RC] ASDIRECTED 12/23/19 11:30 Swenson Catheter Insertion [Insert Urinary Catheter] [OM.PC] Q24H 12/23/19 12:00 Albuterol/Ipratropium [DuoNeb 3.0-0.5 MG/3 ML] 3 ml NEB QIDRT 12/24/19 05:00 BASIC METABOLIC PANEL,BMP [CHEM] DAILY CBC WITH AUTO DIFF [HEME] DAILY CRP [C-REACTIVE PROTEIN] [CHEM] DAILY INR,PT,PROTHROMBIN TIME [COAG] DAILY - Assessment Assessment:: Bronchitis Weakness Vulnerable Adult Palliative care patient - Plan Plan:: Patient stable this am. Continues to complain of right shoulder pain and frequent cough. Nursing staff report patient is weak, takes 2 to assist for transfers. Denies shortness of breath. Appetite is good. Labs remain normal yesterday. INR mildly low at 1.74, will continue to monitor this as is on IV antibiotics for bronchitis/pneumonia. Continue with current IV meds. Social service consult for skilled nursing placement due to frequent falls, inability to care for self. Physical therapy eval. 12-21-2019 Patient resting comfortably this am. Does still complain of shoulder and back pain. Has recent clavicle fracture. Is to be wearing his sling but is noncompliant with it. No shortness of breath but admits to frequent cough and sputum production. Patient remains weak, requires assist for any transfers. Dr. Joseph did speak with in regards to skilled nursing admission, she is now not agreeable to this. Does admit it is difficult for her to care for him but states "son helps him". Labs are all stable, WBC remains normal. CRP 1.4. Will continue with IV antibiotics. Physical therapy. Continue to follow and determine if will regain enough strength to return home versus skilled nursing. 12/22/2019 0800am This patient was admitted for right shoulder pain with cough/bronchitis vs pneumonia. Patient was unable to get up from bed and required two person assist. Today, the patient remains unable to get up without 2 person assist. He is generally weak. The patient continues to complain of right shoulder pain, cough that is productive. He is awake, alert, and oriented to person and place. He reports it is 2000. As per report the will not take the patient home because she can not take care of him and the son is unable to help due to hurt back. This patient is a 2 person assist and if the can not take care of him, can not go home. The though has refused skilled nursing. The plan will be to continue to treat the bronchitis and have social worker delinquency prevention work with the for either home discharge or skilled nursing discharge. At this time the patient can not safely go home. I did order a chest xray for comparison due to patient productive cough and he is not taking big deep breaths due to the right shoulder pain. I also ordered a incentive spirometer to use. Will continue the admit. 12/23/2019 1300 This patient reports that today he is not feeling that well. He reports that his shortness of breath has increased. He reports having some abdominal cramping. He reports he continues to feel weak. MARYLOU Barreto reports the patient today has been doing much better. She reports the patient has been feeding himself and appears to have more energy today since his entire admit. The patient reports that his right shoulder hurts and hurts to take a big deep breath or to cough. The patient confusion though has resolved. Today, he is completely alert and oriented and appropriate. I reviewed patient ct of head which reports no hemorrhage or evidence of ischemic infarct associated with normal pressure hydrocephalus. I called and spoke to [facility] Dr. Schroeder hospitalist about this finding to see if they have a comparison image or MRI. She reports the MRI is unchanged March [address] It is chronic finding without change. Patient labs yesterday were CR 1.2, BUN 17, CRP 4.0 Today these labs have worsened CR 1.6, BUN 26, CRP 17.6. This could be due to the [place]. Pharmacy to adjust as needed. Will start on IV fluids. Will insert swenson catheter for output measurement as patient is incontinent of urine. Will continue this admit. Will continue fluids, abxs. I also increased breathing treatments to QID scheduled. Dr. Joseph made aware of patient condition. Will continue admit.
[2019-12-23] MEDS: Mirtazapine 15 MG Tab PO SCH (19:54)
[2019-12-23] MEDS: Fluticasone Propionate Nasal Spray 16 GM Bottle NASBOTH SCH (20:05)
[2019-12-24] MEDS: Piperacillin/Tazobactam 3.375 GM in Sodium Chloride 0.9% 100 ML IV SCH (04:40)
[2019-12-24] MEDS: Pantoprazole 40 MG Vial IVPUSH SCH (07:03)
[2019-12-24] MEDS: Loratadine 10 MG Tab PO SCH (07:51)
[2019-12-24] MEDS: Digoxin 125 MCG Tab PO SCH (07:51)
[2019-12-24] MEDS: Furosemide 40 MG Tab PO SCH (07:51)
[2019-12-24] MEDS: Potassium Chloride 10 MEQ Tab.ER PO SCH (07:51)
[2019-12-24 07:57] VITALS: PULSE 68
[2019-12-24] MEDS: Albuterol/Ipratropium 3.0-0.5 MG/3 ML Neb Soln NEB SCH (07:57)
[2019-12-24] MEDS: Polyethylene Glycol 3350 Powder 17 GM Packet PO SCH (07:57)
[2019-12-24] MEDS: Diltiazem 180 MG Cap.CD PO SCH (07:57)
[2019-12-24 07:59] VITALS: BP 123/92
--- NOTE | 2019-12-24 09:24 | PCM.DCSUM1 ---
Discharge Summary - Hospital Course Free Text/Narrative:: Patient presented to ER due to weakness. Initially was seen by Torey Arguelles at the clinic for a cough. Had a chest xray and labs, which were all essentially negative and was diagnosed with bronchitis. Was started on a course of zithromax and prometh with codeine. got him home from the clinic and was unable to get him out of the car so she called EMS. Was assisted in to the house and then was unable to get out of the recliner so was brought in to the ER. Admitted as vulnerable adult as unable to care for him. Diagnosis: Stroke: No Modified [place] Scale: No Symptoms at All Modified [place] Scale Score: 0 - Discharge Data Discharge Date: 12/24/19 Discharge Disposition: DC/Tfer W/I Hosp To Swing 61 Condition: Fair - Referral to Home Health Primary Care Physician: Oumar Joseph MD - Discharge Diagnosis/Problem(s) (1) Acute bronchitis SNOMED Code(s): 34078489 ICD Code: J20.9 - ACUTE BRONCHITIS, UNSPECIFIED Status: Acute Priority: High Qualifiers: Bronchitis organism: unspecified organism Qualified Code(s): J20.9 - Acute bronchitis, unspecified (2) Failure to thrive SNOMED Code(s): 66620809 ICD Code: [id number] - Status: Acute Priority: High (3) Weakness SNOMED Code(s): 96040502 ICD Code: R53.1 - WEAKNESS Status: Acute Priority: High (4) Palliative care patient SNOMED Code(s): 908467795, 256905036 ICD Code: Z51.5 - ENCOUNTER FOR PALLIATIVE CARE Status: Acute Priority: High - Patient Summary/Data Complications: none Consults: Consultations 12/19/19 19:17 PT Evaluation and Treatment [CONS] Routine 12/20/19 08:57 Consult to Case Management/Collection Administrator [CONS] Routine Hospital Course: Patient continues to feel weak. Requires 2 assist for transfers yet. Unable to ambulate well. Patient had recent clavicle fracture, has pain in his right shoulder. Lung sounds show rhonchi, continues to have frequent cough. No fevers. He was confused over the weekend, CT scan of head was done and was negative for new concerns. Chest xray was repeated adn did show infiltrate. As patient did have confusion questionably related to Zithromax and/or Rocephin in the past, Jose Lala did discuss with hospitalist at [facility]. Recommended to switch to Vancomycin and Zosyn. WBC has remained stable. CRP did improve to 17.6. Confusion did clear yesterday. Was sitting up in chair and feeding self. As continues to have need for IV antibiotics and physical therapy, will transfer to swing bed. environmental services associate to consult for discharge planning. - Patient Instructions Diet: Usual Diet as Tolerated Activity: As Tolerated - Discharge Plan *PRESCRIPTION DRUG MONITORING PROGRAM REVIEWED*: Not Applicable *COPY OF PRESCRIPTION DRUG MONITORING REPORT IN PATIENT FLORA: Not Applicable Home Medications: Home Meds Ipratropium Pace 2 sprays NASBOTH BID 05/31/13 [History] Loratadine [Claritin] 10 mg PO DAILY 05/31/13 [History] Multivitamin [Multi-Vitamin Daily] 1 each PO DAILY 05/31/13 [History] Coconut Oil 1,000 mg PO DAILY 10/20/17 [History] Fluticasone Propionate [Flonase Allergy Relief] 2 sprays NASBOTH BEDTIME 10/20/17 [History] Mirtazapine 15 mg PO BEDTIME 10/20/17 [History] Acetaminophen [Tylenol Extra Strength] 500 - 1,000 mg PO Q6H PRN 10/03/18 [History] Furosemide 40 mg PO BID 03/05/19 [History] Warfarin [Coumadin] 2.5 mg PO MOWEFR 03/05/19 [History] Warfarin [Coumadin] 5 mg PO SUTUTHSA 03/05/19 [History] Digoxin [Digox] 125 mcg PO QAM #30 tablet 04/07/19 [Rx] Hydrocodone/Acetaminophen [Hydrocodone-Acetamin 5-325 mg] 1 each PO Q8H PRN 08/21/19 [History] Potassium Chloride [Klor-Con 10] 20 meq PO DAILY #30 tab.er 08/23/19 [Rx] Azithromycin 250 mg PO DAILY 12/19/19 [History] Promethazine HCl/Codeine [Prometh-Codein 6.25-10 mg/5 ml] 5 ml PO Q6H PRN 12/19/19 [History] dilTIAZem HCL [Diltiazem 24Hr ER (Xr)] 180 mg PO DAILY 12/19/19 [History] Carboxymethylcellulose Sodium [Refresh Tears 0.5%] 1 drop EYEBOTH BID 12/24/19 [History] Forms: ED Department Discharge Referrals: Oumar Joseph MD [Primary Care Provider] - - Discharge Summary/Plan Comment DC Time >30 min.: No - General Info Date of Service: 12/24/19 Admission Dx/Problem (Free Text: Bronchitis Weakness Vulnerable adult Palliative care patient Functional Status: Reports: Pain Controlled, Tolerating Diet. Denies: Ambulating - Review of Systems General: Reports: Weakness, Fatigue, Malaise. Denies: Fever HEENT: Reports: No Symptoms, Rhinitis Pulmonary: Reports: Cough. Denies: Shortness of Breath Cardiovascular: Denies: Chest Pain, Edema, Lightheadedness Gastrointestinal: Denies: Abdominal Pain, Nausea, Vomiting Genitourinary: Reports: No Symptoms Musculoskeletal: Reports: Shoulder Pain Skin: Reports: No Symptoms Neurological: Reports: Weakness - Patient Data Vitals - Most Recent: Last Vital Signs Temp 99.1 F 12/24/19 07:58 Pulse 68 12/24/19 07:58 Resp 18 12/24/19 07:58 BP 123/92 H 12/24/19 07:58 Pulse Ox 95 12/24/19 07:58 Weight - Most Recent: 178 lb 8 oz I&O - Last 24 hours: Intake & Output 12/23/19 12/24/19 12/24/19 22:59 06:59 14:59 Intake Total 904 Output Total 1375 Balance -471 Lab Results - Last 24 hrs: Laboratory Results - last 24 hr 12/23/19 12/24/19 12/24/19 Range/Units 14:32 05:00 07:00 WBC (5.0-10.0) 10^3/uL RBC (4.50-6.00) 10^6/uL Hgb (14.0-18.0) g/dL Hct (40.0-54.0) % MCV (82.0-94.0) fL MCH (27.0-32.0) pg MCHC (33.0-38.0) g/dL RDW Coeff of Brayan (11.0-15.0) % Plt Count (150-400) 10^3/uL Neut % (Auto) (35-85) % Lymph % (Auto) (10-55) % [place] % (Auto) (0-16) % Eos % (Auto) (0-5) % Baso % (Auto) (0-3) % Neut # (Auto) (1.80-7.00) 10^3/uL Lymph # (Auto) (1.00-4.80) 10^3/uL [place] # (Auto) (0.00-0.80) 10^3/uL Eos # (Auto) (0.00-0.45) 10^3/uL Baso # (Auto) 10^3/uL PT 22.4 H (9.7-12.3) SEC INR 2.24 H (0.92-1.18) Sodium 142 (136-145) mEq/L Potassium 3.3 L (3.5-5.0) mEq/L Chloride 105 (98-106) mEq/L Carbon Dioxide 31 (21-32) mmol/L BUN 22 H (7-18) mg/dL Creatinine 1.3 (0.7-1.3) mg/dL Est Cr Clr Drug Dosing 40.90 mL/min Estimated GFR (MDRD) 53 L (>=60) mL/min Glucose 95 (75-99) mg/dL Calcium 8.5 (8.4-10.1) mg/dL C-Reactive Protein 9.0 H (0.2-0.8) mg/dL COVID-19 (DC) Negative (NEGATIVE) 12/24/19 Range/Units 07:00 WBC 6.7 (5.0-10.0) 10^3/uL RBC 3.73 L (4.50-6.00) 10^6/uL Hgb 11.5 L (14.0-18.0) g/dL Hct 35.6 L (40.0-54.0) % MCV 95.4 H (82.0-94.0) fL MCH 30.8 (27.0-32.0) pg MCHC 32.3 L (33.0-38.0) g/dL RDW Coeff of Brayan 15.4 H (11.0-15.0) % Plt Count 29 L* (150-400) 10^3/uL Neut % (Auto) 70.5 (35-85) % Lymph % (Auto) 12.9 (10-55) % [place] % (Auto) 11.9 (0-16) % Eos % (Auto) 4.4 (0-5) % Baso % (Auto) 0.3 (0-3) % Neut # (Auto) 4.69 (1.80-7.00) 10^3/uL Lymph # (Auto) 0.86 L (1.00-4.80) 10^3/uL [place] # (Auto) 0.79 (0.00-0.80) 10^3/uL Eos # (Auto) 0.29 (0.00-0.45) 10^3/uL Baso # (Auto) 0.02 10^3/uL PT (9.7-12.3) SEC INR (0.92-1.18) Sodium (136-145) mEq/L Potassium (3.5-5.0) mEq/L Chloride (98-106) mEq/L Carbon Dioxide (21-32) mmol/L BUN (7-18) mg/dL Creatinine (0.7-1.3) mg/dL Est Cr Clr Drug Dosing mL/min Estimated GFR (MDRD) (>=60) mL/min Glucose (75-99) mg/dL Calcium (8.4-10.1) mg/dL C-Reactive Protein (0.2-0.8) mg/dL COVID-19 (DC) (NEGATIVE) Med Orders - Current: Current Medications Vancomycin HCl (Pharmacy To Dose - Vancomycin) 1 dose .XX ASDIRECTED LUIS E Discontinued Medications Acetaminophen (Tylenol) 650 mg PO Q4H PRN PRN Reason: Pain (Mild 1-3)/fever Last Admin: 12/23/19 07:29 Dose: 650 mg Documented by: Hydrocodone Bitart/Acetaminophen (Take Home: Acetaminophen/Hydrocod, 2 Tab Pack) 1 packet PO Q8H PRN PRN Reason: Pain Hydrocodone Bitart/Acetaminophen (Page 325-5 Mg) 1 tab PO Q8H PRN PRN Reason: Pain Last Admin: 12/23/19 23:56 Dose: 1 tab Documented by: Albuterol/Ipratropium (Duoneb 3.0-0.5 Mg/3 Ml) 3 ml NEB Q4H PRN PRN Reason: Dyspnea Last Admin: 12/22/19 14:30 Dose: 3 ml Documented by: Albuterol/Ipratropium (Duoneb 3.0-0.5 Mg/3 Ml) 3 ml NEB BIDRT [facility] Last Admin: 12/23/19 07:25 Dose: 3 ml Documented by: Albuterol/Ipratropium (Duoneb 3.0-0.5 Mg/3 Ml) 3 ml NEB QIDRT [facility] Last Admin: 12/24/19 07:57 Dose: 3 ml Documented by: Ceftriaxone Sodium (Rocephin) 1 gm IVPUSH Q24H [facility] Last Admin: 12/19/19 21:32 Dose: Not Given Documented by: Ceftriaxone Sodium (Rocephin) 1 gm IVPUSH DAILY@1999 [facility] Last Admin: 12/21/19 20:05 Dose: 1 gm Documented by: Digoxin (Lanoxin) 125 mcg PO QAM [facility] Last Admin: 12/24/19 07:51 Dose: 125 mcg Documented by: Diltiazem HCl (Cardizem Cd) 180 mg PO DAILY [facility] Last Admin: 12/24/19 07:57 Dose: 180 mg Documented by: Fluticasone Propionate (Flonase) 0 gm NASBOTH BEDTIME [facility] Last Admin: 12/23/19 20:05 Dose: 2 spray Documented by: Furosemide (Lasix) 40 mg PO BID [facility] Last Admin: 12/20/19 08:19 Dose: 40 mg Documented by: Furosemide (Lasix) 40 mg PO BIDDIURETIC [facility] Last Admin: 12/24/19 07:51 Dose: 40 mg Documented by: Dextrose/Sodium Chloride (Dextrose 5%-1/2 Ns) 1,000 mls @ 75 mls/hr IV ASDIRECTED [facility] Last Admin: 12/21/19 02:51 Dose: 75 mls/hr Documented by: Azithromycin 500 mg/ Sodium (Chloride) 250 mls @ 250 mls/hr IV Q24H [facility] Last Admin: 12/19/19 21:33 Dose: Not Given Documented by: Azithromycin 500 mg/ Sodium (Chloride) 250 mls @ 250 mls/hr IV DAILY@1999 [facility] Last Admin: 12/19/19 21:41 Dose: 250 mls/hr Documented by: Azithromycin 500 mg/ Sodium (Chloride) 250 mls @ 250 mls/hr IV DAILY@1999 [facility] Last Admin: 12/21/19 20:10 Dose: 250 mls/hr Documented by: Piperacillin Sod/Tazobactam (Sod 3.375 gm/ Sodium Chloride) 100 mls @ 200 mls/hr IV Q6H [facility] Last Admin: 12/24/19 04:40 Dose: 200 mls/hr Documented by: Vancomycin HCl 1.25 gm/ Sodium (Chloride) 250 mls @ 166.667 mls/hr IV Q18H [facility] Last Admin: 12/24/19 05:18 Dose: 166.667 mls/hr Documented by: Sodium Chloride (Normal Saline) 250 mls @ 250 mls/hr IV .BOLUS [facility] Stop: 12/24/19 11:15 Sodium Chloride (Normal Saline) 1,000 mls @ 75 mls/hr IV ASDIRECTED [facility] Stop: 12/24/19 08:00 Last Admin: 12/23/19 23:56 Dose: 75 mls/hr Documented by: Loratadine (Claritin) 10 mg PO DAILY [facility] Last Admin: 12/24/19 07:51 Dose: 10 mg Documented by: Mirtazapine (Remeron) 15 mg PO BEDTIME [facility] Last Admin: 12/23/19 19:54 Dose: 15 mg Documented by: Non-Formulary Medication (Diltiazem Hcl [Diltiazem 24hr Er (Xr)]) 180 mg PO DAILY [facility] Last Admin: 12/20/19 09:59 Dose: Not Given Documented by: Ipratropium Pace 0.06% Nasal [place] Own Med 2 sprays NASBOTH BID [facility] Last Admin: 12/23/19 19:54 Dose: 2 sprays Documented by: Non-Formulary Medication (Olopatadine [Patanol 0.1% Oph Soln]) 1 drop EYEBOTH BID [facility] Last Admin: 12/23/19 20:01 Dose: Not Given Documented by: Promethazine Hcl/Codeine [Prometh- Codein 6.25-10 Mg/5 Ml] Own Med 5 ml PO Q6H PRN PRN Reason: Cough Last Admin: 12/21/19 11:05 Dose: 5 ml Documented by: Pantoprazole Sodium (Protonix Iv) 40 mg IVPUSH Q12H [facility] Last Admin: 12/19/19 21:32 Dose: Not Given Documented by: Pantoprazole Sodium (Protonix Iv) 40 mg IVPUSH BID@0700,1900 [facility] Last Admin: 12/24/19 07:03 Dose: 40 mg Documented by: Polyethylene Glycol (Miralax) 17 gm PO DAILY [facility] Last Admin: 12/24/19 07:57 Dose: 17 gm Documented by: Potassium Chloride (Klor-Con 10) 20 meq PO DAILY [facility] Last Admin: 12/24/19 07:51 Dose: 20 meq Documented by: Warfarin Sodium (Coumadin) 2.5 mg PO MOWEFR [facility] Last Admin: 12/19/19 21:33 Dose: Not Given Documented by: Warfarin Sodium (Coumadin) 5 mg PO SUTUTHSA [facility] Warfarin Sodium (Coumadin) 2.5 mg PO MoWeFr@1200 [facility] Last Admin: 12/21/19 11:55 Dose: 2.5 mg Documented by: Warfarin Sodium (Coumadin) 5 mg PO SuTuThSa@1200 [facility] Last Admin: 12/23/19 11:18 Dose: 5 mg Documented by: - Exam General: Reports: Alert, Oriented HEENT: Reports: Mucous Membr. Moist/[place] Neck: Reports: Supple Lungs: Reports: Rhonchi Cardiovascular: Reports: Regular Rate, Regular Rhythm GI/Abdominal Exam: Normal Bowel Sounds, Soft, Non-Tender Extremities: Normal Inspection, No Pedal Edema Skin: Reports: Warm, Dry Neurological: Reports: No New Focal Deficit
== END 2019-12-24 09:00 | disposition swing bed (61) | DRG 202 ==
LOC: CC.ED 18:38 → CC.MS 19:17 → CC.ED 20:05 → UNDOADMIN 20:11 → CC.MS 20:11
PROVIDERS: ADMIT Physician Assistant Medical; ATTEND Family Medicine
DX: R53.1 Weakness (principal); J20.9 Acute bronchitis, unspecified; J18.9 Pneumonia, unspecified organism; S42.024D Nondisplaced fracture of shaft of right clavicle, subsequent encounter for fracture with routine healing; Z51.5 Encounter for palliative care; I11.0 Hypertensive heart disease with heart failure; H91.90 Unspecified hearing loss, unspecified ear; H54.7 Unspecified visual loss; I50.9 Heart failure, unspecified; Z95.5 Presence of coronary angioplasty implant and graft; E78.00 Pure hypercholesterolemia, unspecified; I10 Essential (primary) hypertension; M19.90 Unspecified osteoarthritis, unspecified site; R62.7 Adult failure to thrive; Z95.1 Presence of aortocoronary bypass graft; Z90.49 Acquired absence of other specified parts of digestive tract; Z79.899 Other long term (current) drug therapy; Z79.01 Long term (current) use of anticoagulants; Z88.8 Allergy status to other drugs, medicaments and biological substances; Z20.828 Contact with and (suspected) exposure to other viral communicable diseases
CPT/HCPCS: 36415; 70450; 71045; 80048; 85025; 85610; 86140; 94640; 99285; A9270-GY; C9113; J0456; J0696; J2543; J3370; J7030; J7042; J7050; J7620-GY; U0002

== ENCOUNTER 2019-12-24 08:49 | Inpatient (IN) | payer MEDICARE, BC ==
[2019-12-24] MEDS ORDERED: Sodium Chloride 0.9% 250 ML IV SCH (10:29)
[2019-12-24] MEDS ORDERED: [UNRECOGNIZED DRUG - OTHER] PO PRN (10:29)
[2019-12-24] MEDS ORDERED: Albuterol/Ipratropium 3.0-0.5 MG/3 ML Neb Soln NEB PRN (10:29)
[2019-12-24] MEDS ORDERED: Acetaminophen 325 MG Tab PO PRN (10:29)
[2019-12-24] MEDS ORDERED: PROMETHAZINE HCL PO PRN (10:29)
[2019-12-24] MEDS ORDERED: CODEINE PO PRN (10:29)
[2019-12-24] MEDS: Piperacillin/Tazobactam 3.375 GM in Sodium Chloride 0.9% 100 ML IV SCH ×3 (13:15→23:37)
[2019-12-24] MEDS: Albuterol/Ipratropium 3.0-0.5 MG/3 ML Neb Soln NEB SCH ×3 (13:16→19:29)
[2019-12-24] MEDS: Warfarin 2.5 MG Tab PO SCH (13:24)
[2019-12-24] MEDS: Furosemide 40 MG Tab PO SCH (16:35)
[2019-12-24] MEDS: Pantoprazole 40 MG Vial IVPUSH SCH (19:29)
[2019-12-24] MEDS: Mirtazapine 15 MG Tab PO SCH (19:31)
[2019-12-24] MEDS: IPRATROPIUM BROMIDE NASBOTH SCH (19:31)
[2019-12-24] MEDS: Fluticasone Propionate Nasal Spray 16 GM Bottle NASBOTH SCH (19:32)
[2019-12-24] MEDS ORDERED: OLOPATADINE EYEBOTH SCH ×2 (20:00)
[2019-12-25] MEDS: Piperacillin/Tazobactam 3.375 GM in Sodium Chloride 0.9% 100 ML IV SCH ×4 (05:02→23:02)
[2019-12-25] MEDS: Pantoprazole 40 MG Vial IVPUSH SCH ×2 (06:13→18:15)
[2019-12-25] MEDS: Polyethylene Glycol 3350 Powder 17 GM Packet PO SCH (07:27)
[2019-12-25] MEDS: Albuterol/Ipratropium 3.0-0.5 MG/3 ML Neb Soln NEB SCH ×4 (07:27→19:26)
[2019-12-25] MEDS: Loratadine 10 MG Tab PO SCH (07:27)
[2019-12-25] MEDS: Furosemide 40 MG Tab PO SCH ×2 (07:27→17:05)
[2019-12-25] MEDS: Digoxin 125 MCG Tab PO SCH (07:27)
[2019-12-25] MEDS: Diltiazem 180 MG Cap.CD PO SCH (07:27)
[2019-12-25] MEDS: IPRATROPIUM BROMIDE NASBOTH SCH ×2 (07:29→19:27)
[2019-12-25] MEDS: [UNRECOGNIZED DRUG - OTHER] EYEBOTH SCH ×2 (07:29→19:28)
[2019-12-25] MEDS: Acetaminophen/HYDROcodone 325-5 MG Tab PO PRN ×2 (07:37→23:27)
[2019-12-25] MEDS: Potassium Chloride 10 MEQ Tab.ER PO SCH (07:37)
[2019-12-25] MEDS: Warfarin 5 MG Tab PO SCH (11:09)
[2019-12-25] MEDS: Mirtazapine 15 MG Tab PO SCH (19:27)
[2019-12-25] MEDS: Fluticasone Propionate Nasal Spray 16 GM Bottle NASBOTH SCH (19:27)
[2019-12-25] MEDS: Codeine/Promethazine 10-6.25 MG/5 ML Syrup 5 ML UD Cup PO PRN (23:01)
[2019-12-26] MEDS: Piperacillin/Tazobactam 3.375 GM in Sodium Chloride 0.9% 100 ML IV SCH ×4 (05:40→22:47)
[2019-12-26] MEDS: Pantoprazole 40 MG Vial IVPUSH SCH ×2 (06:13→18:56)
[2019-12-26] MEDS: Polyethylene Glycol 3350 Powder 17 GM Packet PO SCH (07:58)
[2019-12-26] MEDS: Diltiazem 180 MG Cap.CD PO SCH (07:59)
[2019-12-26] MEDS: Albuterol/Ipratropium 3.0-0.5 MG/3 ML Neb Soln NEB SCH ×4 (07:59→19:38)
[2019-12-26] MEDS: Potassium Chloride 10 MEQ Tab.ER PO SCH (08:00)
[2019-12-26] MEDS: Furosemide 40 MG Tab PO SCH ×2 (08:00→15:17)
[2019-12-26] MEDS: Loratadine 10 MG Tab PO SCH (08:00)
[2019-12-26] MEDS: Digoxin 125 MCG Tab PO SCH (08:01)
[2019-12-26] MEDS: IPRATROPIUM BROMIDE NASBOTH SCH ×2 (08:02→19:39)
[2019-12-26] MEDS: [UNRECOGNIZED DRUG - OTHER] EYEBOTH SCH ×2 (08:02→19:39)
[2019-12-26] MEDS: Warfarin 2.5 MG Tab PO SCH (11:05)
[2019-12-26] MEDS: Fluticasone Propionate Nasal Spray 16 GM Bottle NASBOTH SCH (19:38)
[2019-12-26] MEDS: Mirtazapine 15 MG Tab PO SCH (19:40)
[2019-12-26] MEDS: Acetaminophen/HYDROcodone 325-5 MG Tab PO PRN (19:49)
[2019-12-26] MEDS: Codeine/Promethazine 10-6.25 MG/5 ML Syrup 5 ML UD Cup PO PRN (19:50)
[2019-12-27] MEDS: Codeine/Promethazine 10-6.25 MG/5 ML Syrup 5 ML UD Cup PO PRN ×2 (02:33→19:45)
[2019-12-27] MEDS: Piperacillin/Tazobactam 3.375 GM in Sodium Chloride 0.9% 100 ML IV SCH ×4 (05:11→22:24)
[2019-12-27] MEDS: Pantoprazole 40 MG Vial IVPUSH SCH ×2 (07:32→18:29)
[2019-12-27] MEDS: Diltiazem 180 MG Cap.CD PO SCH (07:38)
[2019-12-27] MEDS: Polyethylene Glycol 3350 Powder 17 GM Packet PO SCH (07:38)
[2019-12-27] MEDS: Albuterol/Ipratropium 3.0-0.5 MG/3 ML Neb Soln NEB SCH ×4 (07:38→19:44)
[2019-12-27] MEDS: Potassium Chloride 10 MEQ Tab.ER PO SCH (07:38)
[2019-12-27] MEDS: Digoxin 125 MCG Tab PO SCH (07:39)
[2019-12-27] MEDS: Furosemide 40 MG Tab PO SCH ×2 (07:39→15:51)
[2019-12-27] MEDS: Loratadine 10 MG Tab PO SCH (07:39)
[2019-12-27] MEDS: IPRATROPIUM BROMIDE NASBOTH SCH ×2 (07:40→19:44)
[2019-12-27] MEDS: [UNRECOGNIZED DRUG - OTHER] EYEBOTH SCH ×2 (07:41→19:44)
[2019-12-27] MEDS: Warfarin 5 MG Tab PO SCH (12:06)
[2019-12-27] MEDS: Acetaminophen/HYDROcodone 325-5 MG Tab PO PRN (19:44)
[2019-12-27] MEDS: Mirtazapine 15 MG Tab PO SCH (19:44)
[2019-12-27] MEDS: Fluticasone Propionate Nasal Spray 16 GM Bottle NASBOTH SCH (19:44)
[2019-12-28] MEDS: Piperacillin/Tazobactam 3.375 GM in Sodium Chloride 0.9% 100 ML IV SCH ×4 (04:57→23:20)
[2019-12-28] MEDS: Pantoprazole 40 MG Vial IVPUSH SCH ×2 (06:11→18:41)
[2019-12-28] MEDS: Albuterol/Ipratropium 3.0-0.5 MG/3 ML Neb Soln NEB SCH ×4 (08:10→19:13)
[2019-12-28] MEDS: Polyethylene Glycol 3350 Powder 17 GM Packet PO SCH (08:10)
[2019-12-28] MEDS: Potassium Chloride 10 MEQ Tab.ER PO SCH (08:11)
[2019-12-28] MEDS: Furosemide 40 MG Tab PO SCH ×2 (08:11→16:37)
[2019-12-28] MEDS: Diltiazem 180 MG Cap.CD PO SCH (08:11)
[2019-12-28] MEDS: Digoxin 125 MCG Tab PO SCH (08:12)
[2019-12-28] MEDS: Loratadine 10 MG Tab PO SCH (08:12)
[2019-12-28] MEDS: IPRATROPIUM BROMIDE NASBOTH SCH ×2 (08:15→19:14)
[2019-12-28] MEDS: [UNRECOGNIZED DRUG - OTHER] EYEBOTH SCH ×2 (08:15→19:14)
[2019-12-28] MEDS: Warfarin 2.5 MG Tab PO SCH (11:40)
[2019-12-28] MEDS: Fluticasone Propionate Nasal Spray 16 GM Bottle NASBOTH SCH (19:14)
[2019-12-28] MEDS: Mirtazapine 15 MG Tab PO SCH (19:14)
[2019-12-28] MEDS: Codeine/Promethazine 10-6.25 MG/5 ML Syrup 5 ML UD Cup PO PRN (21:46)
[2019-12-29] MEDS: Piperacillin/Tazobactam 3.375 GM in Sodium Chloride 0.9% 100 ML IV SCH ×4 (04:59→22:50)
[2019-12-29] MEDS: Pantoprazole 40 MG Vial IVPUSH SCH ×2 (06:32→18:19)
[2019-12-29] MEDS: Albuterol/Ipratropium 3.0-0.5 MG/3 ML Neb Soln NEB SCH ×4 (08:11→19:46)
[2019-12-29] MEDS: Polyethylene Glycol 3350 Powder 17 GM Packet PO SCH (08:11)
[2019-12-29] MEDS: Furosemide 40 MG Tab PO SCH ×2 (08:12→16:32)
[2019-12-29] MEDS: Digoxin 125 MCG Tab PO SCH (08:12)
[2019-12-29] MEDS: Potassium Chloride 10 MEQ Tab.ER PO SCH (08:12)
[2019-12-29] MEDS: Diltiazem 180 MG Cap.CD PO SCH (08:13)
[2019-12-29] MEDS: Loratadine 10 MG Tab PO SCH (08:13)
[2019-12-29] MEDS: IPRATROPIUM BROMIDE NASBOTH SCH ×2 (08:13→19:46)
[2019-12-29] MEDS: [UNRECOGNIZED DRUG - OTHER] EYEBOTH SCH ×2 (08:13→19:47)
[2019-12-29] MEDS: Warfarin 5 MG Tab PO SCH (11:39)
[2019-12-29] MEDS: Acetaminophen/HYDROcodone 325-5 MG Tab PO PRN (14:06)
[2019-12-29] MEDS: Codeine/Promethazine 10-6.25 MG/5 ML Syrup 5 ML UD Cup PO PRN (17:04)
[2019-12-29] MEDS: Mirtazapine 15 MG Tab PO SCH (19:46)
[2019-12-29] MEDS: Fluticasone Propionate Nasal Spray 16 GM Bottle NASBOTH SCH (19:46)
[2019-12-30] MEDS: Piperacillin/Tazobactam 3.375 GM in Sodium Chloride 0.9% 100 ML IV SCH ×4 (05:04→22:32)
[2019-12-30] MEDS: Pantoprazole 40 MG Vial IVPUSH SCH ×2 (07:10→18:12)
[2019-12-30] MEDS: [UNRECOGNIZED DRUG - OTHER] EYEBOTH SCH ×2 (07:21→19:37)
[2019-12-30] MEDS: IPRATROPIUM BROMIDE NASBOTH SCH ×2 (07:21→19:38)
[2019-12-30] MEDS: Albuterol/Ipratropium 3.0-0.5 MG/3 ML Neb Soln NEB SCH ×4 (07:28→19:37)
[2019-12-30] MEDS: Furosemide 40 MG Tab PO SCH ×2 (07:30→16:23)
[2019-12-30] MEDS: Diltiazem 180 MG Cap.CD PO SCH (07:30)
[2019-12-30] MEDS: Potassium Chloride 10 MEQ Tab.ER PO SCH (07:30)
[2019-12-30] MEDS: Digoxin 125 MCG Tab PO SCH (07:31)
[2019-12-30] MEDS: Loratadine 10 MG Tab PO SCH (07:31)
[2019-12-30] MEDS: Polyethylene Glycol 3350 Powder 17 GM Packet PO SCH (07:32)
[2019-12-30] MEDS: Warfarin 5 MG Tab PO SCH (11:51)
[2019-12-30] MEDS: Mirtazapine 15 MG Tab PO SCH (19:36)
[2019-12-30] MEDS: Fluticasone Propionate Nasal Spray 16 GM Bottle NASBOTH SCH (19:36)
[2019-12-31] MEDS: Piperacillin/Tazobactam 3.375 GM in Sodium Chloride 0.9% 100 ML IV SCH ×4 (04:40→22:13)
[2019-12-31] MEDS: Pantoprazole 40 MG Vial IVPUSH SCH ×2 (06:25→18:32)
[2019-12-31] MEDS: Loratadine 10 MG Tab PO SCH (08:21)
[2019-12-31] MEDS: Albuterol/Ipratropium 3.0-0.5 MG/3 ML Neb Soln NEB SCH ×4 (08:22→19:39)
[2019-12-31] MEDS: Digoxin 125 MCG Tab PO SCH (08:22)
[2019-12-31] MEDS: Diltiazem 180 MG Cap.CD PO SCH (08:22)
[2019-12-31] MEDS: Furosemide 40 MG Tab PO SCH ×2 (08:22→16:24)
[2019-12-31] MEDS: Potassium Chloride 10 MEQ Tab.ER PO SCH (08:23)
[2019-12-31] MEDS: Polyethylene Glycol 3350 Powder 17 GM Packet PO SCH (08:23)
[2019-12-31] MEDS: IPRATROPIUM BROMIDE NASBOTH SCH ×2 (08:24→19:40)
[2019-12-31] MEDS: [UNRECOGNIZED DRUG - OTHER] EYEBOTH SCH ×2 (08:24→19:41)
[2019-12-31] MEDS: Warfarin 2.5 MG Tab PO SCH (12:12)
[2019-12-31] MEDS: Acetaminophen/HYDROcodone 325-5 MG Tab PO PRN (12:16)
[2019-12-31] MEDS: Fluticasone Propionate Nasal Spray 16 GM Bottle NASBOTH SCH (19:39)
[2019-12-31] MEDS: Mirtazapine 15 MG Tab PO SCH (19:39)
[2020-01-01] MEDS: Piperacillin/Tazobactam 3.375 GM in Sodium Chloride 0.9% 100 ML IV SCH (05:00)
[2020-01-01] MEDS: Pantoprazole 40 MG Vial IVPUSH SCH ×2 (06:43→18:01)
[2020-01-01] MEDS: [UNRECOGNIZED DRUG - OTHER] EYEBOTH SCH ×2 (07:23→19:48)
[2020-01-01] MEDS: Albuterol/Ipratropium 3.0-0.5 MG/3 ML Neb Soln NEB SCH ×4 (07:23→19:47)
[2020-01-01] MEDS: Furosemide 40 MG Tab PO SCH ×2 (07:24→15:51)
[2020-01-01] MEDS: Diltiazem 180 MG Cap.CD PO SCH (07:24)
[2020-01-01] MEDS: IPRATROPIUM BROMIDE NASBOTH SCH ×2 (07:24→19:48)
[2020-01-01] MEDS: Loratadine 10 MG Tab PO SCH (07:24)
[2020-01-01] MEDS: Digoxin 125 MCG Tab PO SCH (07:25)
[2020-01-01] MEDS: Polyethylene Glycol 3350 Powder 17 GM Packet PO SCH (07:25)
[2020-01-01] MEDS: Potassium Chloride 10 MEQ Tab.ER PO SCH (07:25)
[2020-01-01] MEDS: Warfarin 5 MG Tab PO SCH (11:33)
[2020-01-01] MEDS: Mirtazapine 15 MG Tab PO SCH (19:47)
[2020-01-01] MEDS: Fluticasone Propionate Nasal Spray 16 GM Bottle NASBOTH SCH (19:48)
[2020-01-02] MEDS: Pantoprazole 40 MG Vial IVPUSH SCH ×2 (06:32→18:08)
[2020-01-02] MEDS: Digoxin 125 MCG Tab PO SCH (07:26)
[2020-01-02] MEDS: Diltiazem 180 MG Cap.CD PO SCH (07:26)
[2020-01-02] MEDS: Loratadine 10 MG Tab PO SCH (07:27)
[2020-01-02] MEDS: IPRATROPIUM BROMIDE NASBOTH SCH ×2 (07:27→19:22)
[2020-01-02] MEDS: [UNRECOGNIZED DRUG - OTHER] EYEBOTH SCH ×2 (07:28→19:23)
[2020-01-02] MEDS: Polyethylene Glycol 3350 Powder 17 GM Packet PO SCH (07:29)
[2020-01-02] MEDS: Furosemide 40 MG Tab PO SCH ×2 (07:29→15:40)
[2020-01-02] MEDS: Albuterol/Ipratropium 3.0-0.5 MG/3 ML Neb Soln NEB SCH ×4 (07:30→19:24)
[2020-01-02] MEDS: Potassium Chloride 10 MEQ Tab.ER PO SCH (07:30)
[2020-01-02] MEDS: Warfarin 2.5 MG Tab PO SCH (11:25)
[2020-01-02] MEDS: Mirtazapine 15 MG Tab PO SCH (19:22)
[2020-01-02] MEDS: Fluticasone Propionate Nasal Spray 16 GM Bottle NASBOTH SCH (19:23)
[2020-01-03] MEDS: Pantoprazole 40 MG Vial IVPUSH SCH ×2 (06:05→18:01)
[2020-01-03] MEDS: IPRATROPIUM BROMIDE NASBOTH SCH ×2 (07:37→20:12)
[2020-01-03] MEDS: [UNRECOGNIZED DRUG - OTHER] EYEBOTH SCH ×2 (07:38→20:09)
[2020-01-03] MEDS: Potassium Chloride 10 MEQ Tab.ER PO SCH (07:38)
[2020-01-03] MEDS: Albuterol/Ipratropium 3.0-0.5 MG/3 ML Neb Soln NEB SCH ×2 (07:38→11:53)
[2020-01-03] MEDS: Furosemide 40 MG Tab PO SCH ×2 (07:38→15:26)
[2020-01-03] MEDS: Digoxin 125 MCG Tab PO SCH (07:39)
[2020-01-03] MEDS: Diltiazem 180 MG Cap.CD PO SCH (07:39)
[2020-01-03] MEDS: Loratadine 10 MG Tab PO SCH (07:39)
[2020-01-03] MEDS: Acetaminophen/HYDROcodone 325-5 MG Tab PO PRN (08:06)
[2020-01-03] MEDS: Polyethylene Glycol 3350 Powder 17 GM Packet PO SCH (08:06)
[2020-01-03] MEDS: Warfarin 5 MG Tab PO SCH (11:53)
[2020-01-03] MEDS ORDERED: Albuterol/Ipratropium 3.0-0.5 MG/3 ML Neb Soln NEB PRN (12:12)
[2020-01-03] MEDS: Mirtazapine 15 MG Tab PO SCH (20:08)
[2020-01-03] MEDS: Fluticasone Propionate Nasal Spray 16 GM Bottle NASBOTH SCH (20:12)
[2020-01-04] MEDS: Pantoprazole 40 MG Vial IVPUSH SCH ×2 (06:16→19:10)
[2020-01-04] MEDS: Digoxin 125 MCG Tab PO SCH (08:11)
[2020-01-04] MEDS: Furosemide 40 MG Tab PO SCH ×2 (08:11→16:01)
[2020-01-04] MEDS: Diltiazem 180 MG Cap.CD PO SCH (08:11)
[2020-01-04] MEDS: IPRATROPIUM BROMIDE NASBOTH SCH (08:12)
[2020-01-04] MEDS: [UNRECOGNIZED DRUG - OTHER] EYEBOTH SCH (08:12)
[2020-01-04] MEDS: Potassium Chloride 10 MEQ Tab.ER PO SCH (08:12)
[2020-01-04] MEDS: Loratadine 10 MG Tab PO SCH (08:12)
[2020-01-04] MEDS: Polyethylene Glycol 3350 Powder 17 GM Packet PO SCH (08:12)
[2020-01-04] MEDS: Warfarin 2.5 MG Tab PO SCH (13:03)
[2020-01-04 16:30] VITALS: BP 132/76; PULSE 51
== END 2020-01-04 20:00 | disposition left against medical advice (07) | DRG 203 ==
LOC: CC.MS 08:49 → UNDOADMIN 09:00
PROVIDERS: ADMIT Family Medicine; ATTEND Family Medicine
DX: J20.9 Acute bronchitis, unspecified (principal); R53.1 Weakness; Z51.5 Encounter for palliative care; R62.7 Adult failure to thrive; Z68.25 Body mass index [BMI] 25.0-25.9, adult
CPT/HCPCS: 36415; 80202; 82565; 85610; 87045; 87046; 87493; 89055; 94640; 97110-GP; 97161-GP; 97530-GP; A9270-GY; C9113; J2543; J3370; J7050; J7620-GY